=== PATIENT | male | born 1935 | race Caucasian/White ===

== ENCOUNTER 2021-03-10 16:24 | Outpatient (REF) | payer MEDICARE, SELFPAY ==
--- NOTE | ~2021-03-10 | XR_ITS ---
EXAMINATION: XR KNEE, LEFT CLINICAL INFORMATION: M25.562 - Pain in left knee COMPARISON: None TECHNIQUE: Four views of the left knee. IT issues at time of exam. Preliminary report provided on 03/10/2021 at 1721 hours. FINDINGS: There is a moderate to large suprapatellar effusion. There is no fracture or dislocation or destructive process. There are degenerative changes greatest medial knee joint compartment with mild joint narrowing and marginal osteophytes and a central osteophyte. No erosive changes or definite chondrocalcinosis. XR/XR knee LT 4V IMPRESSION: Degenerative changes medial knee joint compartment. Moderate to large effusion.
== END 2021-03-10 16:25 | disposition home or self-care (01) ==
LOC: HO.HMGCX 16:24
PROVIDERS: Visit Provider Hospitalist
DX: M25.562 Pain in left knee (principal)
CPT/HCPCS: 73564

== ENCOUNTER 2022-05-23 14:59 | Emergency (ER) | payer OTHER, SELFPAY ==
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
[2022-05-23 15:20] VITALS: BP 194/90; PULSE 86; RESP 18; TEMP 36.9; O2SAT 99
[2022-05-23 15:24] VITALS: BP 210/90; PULSE 91; O2SAT 99
[2022-05-23] MEDS: Acetaminophen 325 MG TABLET 975 MG PO (15:29)
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
[2022-05-23 16:22] LABS: MANUAL DIFF FLAG NO
[2022-05-23 16:23] LABS: Basophils Absolute Auto 0.1 X10*3/uL (0.0-0.2); Basophils Percent Auto 0.6 % (0-2); Eosinophils Absolute Auto 0.2 X10*3/uL (0.0-0.4); Eosinophils Percent Auto 1.8 % (0-4); Hematocrit 37.4 % (42.0-52.0); Hemoglobin 13.1 g/dl (14.0-18.0); Imm Gran Abs Auto 0.02 X10*3/uL (0.00-0.03); Imm Gran Pct Auto 0.2 % (0.0-0.4); Lymphocytes Absolute Auto 1.3 X10*3/uL (1.2-4.9); Lymphocytes Percent Auto 15.5 % (20-40); Mean Corpuscular Hemoglobin 29.8 pg (27.0-33.0); Mean Platelet Volume 9.2 fL (9.4-12.4); Monocytes Absolute Auto 0.8 X10*3/uL (0.1-1.2); Monocytes Percent Auto 9.7 % (2-11); Neutrophils Absolute Auto 5.9 x10*3/uL (2.0-8.3); Neutrophils Percent Auto 72.2 % (45-73); Platelet Count 223 X10*3/uL (160-400); Red Cell Distribution Width 13.4 % (11.0-16.0); White Blood Count 8.2 X10*3/uL (4.8-10.8)
[2022-05-23 16:42] LABS: Alanine Aminotransferase 9 U/L (0-40); Albumin Level 4.2 g/dL (3.5-5.0); Alkaline Phosphatase 81 U/L (39-117); Anion Gap 14 (12-20); Aspartate Amino Transferase 23 U/L (5-37); Bilirubin Direct < 0.2 mg/dL (0.0-0.5); Bilirubin Total 0.4 mg/dL (0.0-1.0); Blood Urea Nitrogen 14 mg/dL (9-16); Calcium 8.9 mg/dL (8.4-10.2); Carbon Dioxide 22 mmol/L (22-29); Chloride 102 mmol/L (96-108); Estimated Glomerular Filt Rate > 60; Glucose Random 110 mg/dL (60-115); Magnesium 1.8 mg/dL (1.6-2.6); Potassium 3.6 mmol/L (3.3-5.1); Sodium 134 mmol/L (135-145); Total Protein 7.8 g/dL (6.5-8.0)
[2022-05-23 20:28] LABS: Troponin-I High Sensitivity 53.1 ng/L (<3.5-35.0)
== END 2022-05-23 21:40 | disposition home or self-care (01) ==
PROVIDERS: Physician Assistant; Emergency Provider Emergency Medicine; PCP Internal Medicine
DX: R07.89 Other chest pain (principal); M54.50 Low back pain, unspecified; Z79.899 Other long term (current) drug therapy
CPT/HCPCS: 36415; 71046; 80048; 80076; 83735; 84484; 85025; 93005; 99283; 99284

== ENCOUNTER 2022-06-12 09:22 | Emergency (ER) | payer OTHER, SELFPAY ==
[2022-06-12 11:53] VITALS: BP 150/60; PULSE 60; RESP 16; TEMP 36.6; O2SAT 96; BMI 31.8
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
== END 2022-06-12 16:02 | disposition home or self-care (01) ==
PROVIDERS: Emergency Provider Internal Medicine; PCP Internal Medicine
DX: Z04.1 Encounter for examination and observation following transport accident (principal); M79.10 Myalgia, unspecified site
CPT/HCPCS: 99282; 99283

== ENCOUNTER 2022-10-10 19:05 | Emergency (ER) | payer MEDICARE, SELFPAY ==
--- NOTE | ~2022-10-10 | CT_ITS ---
EXAMINATION: CT HEAD WITHOUT CONTRAST CT CERVICAL SPINE WITHOUT CONTRAST CT MAXILLOFACIAL WITHOUT CONTRAST CLINICAL INFORMATION: Neck pain post fall. Face strike. Head strike. COMPARISON: None TECHNIQUE: CT of the head, cervical spine, and maxillofacial structures was performed without intravenous contrast. Multiplanar reformats were rendered and reviewed. This CT examination was performed using dose optimization techniques as appropriate, variously including the following: *Automated exposure control *Adjustment of mA and/or kV according to patient size (this includes techniques or standardized protocols for targeted exams where dose is matched to indication/reason for exam; i.e. extremities or head) *Use of iterative reconstruction technique DLP: 1635 mGy-cm. FINDINGS: CT HEAD: There is no intracranial hemorrhage, extra-axial collection, mass effect, or territorial infarction. There is mild to moderate diffuse brain parenchymal volume loss with prominence of ventricles and sulci. 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 The calvarium is intact without fracture. There is soft tissue contusion about the right frontal scalp. CT MAXILLOFACIAL: There is no preseptal soft tissue swelling. The orbital green and orbital rims are intact. There is no infiltration of the intraorbital fat or evidence of retrobulbar hematoma. The extraocular muscles and optic nerve sheath complexes are symmetric and normal in appearance. The globes are normal and symmetric. The zygomas and zygomaticomaxillary buttresses are intact. The nasal bones and wrno-anbgnm-ofexoom complex are intact. The maxillary alveolus and hard palate are intact. The mandible is intact with mandibular condyles normally positioned within the glenoid fossa. The osseous structures of the central skull base are intact. There is mild mucosal thickening within the paranasal sinuses. No fluid levels are seen mastoids are clear. CT CERVICAL SPINE: There is reversal of the normal cervical lordosis. No fracture is seen. There is advanced disc height loss at C5 C5 C6 and prominent endplate spurring with advanced degenerative endplate changes in addition to remodeling of the vertebral bodies with chronic height loss. There is multilevel facet arthropathy which is advanced at several levels. The craniovertebral junction appears intact. There is multilevel high-grade narrowing of the neural foramina related to uncovertebral hypertrophy and facet arthropathy. The upper lungs are clear. The cervical soft tissues are unremarkable. CT/CT cervical spine wo IV con IMPRESSION: CT HEAD: No acute intracranial abnormality. CT CERVICAL SPINE: No cervical spine fracture or traumatic malalignment. CT MAXILLOFACIAL: No facial bone fracture. Right frontal scalp contusion.
--- NOTE | ~2022-10-10 | CT_ITS ---
EXAMINATION: CT HEAD WITHOUT CONTRAST CT CERVICAL SPINE WITHOUT CONTRAST CT MAXILLOFACIAL WITHOUT CONTRAST CLINICAL INFORMATION: Neck pain post fall. Face strike. Head strike. COMPARISON: None TECHNIQUE: CT of the head, cervical spine, and maxillofacial structures was performed without intravenous contrast. Multiplanar reformats were rendered and reviewed. This CT examination was performed using dose optimization techniques as appropriate, variously including the following: *Automated exposure control *Adjustment of mA and/or kV according to patient size (this includes techniques or standardized protocols for targeted exams where dose is matched to indication/reason for exam; i.e. extremities or head) *Use of iterative reconstruction technique DLP: 1635 mGy-cm. FINDINGS: CT HEAD: There is no intracranial hemorrhage, extra-axial collection, mass effect, or territorial infarction. There is mild to moderate diffuse brain parenchymal volume loss with prominence of ventricles and sulci. 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 The calvarium is intact without fracture. There is soft tissue contusion about the right frontal scalp. CT MAXILLOFACIAL: There is no preseptal soft tissue swelling. The orbital green and orbital rims are intact. There is no infiltration of the intraorbital fat or evidence of retrobulbar hematoma. The extraocular muscles and optic nerve sheath complexes are symmetric and normal in appearance. The globes are normal and symmetric. The zygomas and zygomaticomaxillary buttresses are intact. The nasal bones and ntoq-liefcx-rvodquv complex are intact. The maxillary alveolus and hard palate are intact. The mandible is intact with mandibular condyles normally positioned within the glenoid fossa. The osseous structures of the central skull base are intact. There is mild mucosal thickening within the paranasal sinuses. No fluid levels are seen mastoids are clear. CT CERVICAL SPINE: There is reversal of the normal cervical lordosis. No fracture is seen. There is advanced disc height loss at C5 C5 C6 and prominent endplate spurring with advanced degenerative endplate changes in addition to remodeling of the vertebral bodies with chronic height loss. There is multilevel facet arthropathy which is advanced at several levels. The craniovertebral junction appears intact. There is multilevel high-grade narrowing of the neural foramina related to uncovertebral hypertrophy and facet arthropathy. The upper lungs are clear. The cervical soft tissues are unremarkable. CT/CT facial bones wo IV con IMPRESSION: CT HEAD: No acute intracranial abnormality. CT CERVICAL SPINE: No cervical spine fracture or traumatic malalignment. CT MAXILLOFACIAL: No facial bone fracture. Right frontal scalp contusion.
--- NOTE | ~2022-10-10 | CT_ITS ---
EXAMINATION: CT HEAD WITHOUT CONTRAST CT CERVICAL SPINE WITHOUT CONTRAST CT MAXILLOFACIAL WITHOUT CONTRAST CLINICAL INFORMATION: Neck pain post fall. Face strike. Head strike. COMPARISON: None TECHNIQUE: CT of the head, cervical spine, and maxillofacial structures was performed without intravenous contrast. Multiplanar reformats were rendered and reviewed. This CT examination was performed using dose optimization techniques as appropriate, variously including the following: *Automated exposure control *Adjustment of mA and/or kV according to patient size (this includes techniques or standardized protocols for targeted exams where dose is matched to indication/reason for exam; i.e. extremities or head) *Use of iterative reconstruction technique DLP: 1635 mGy-cm. FINDINGS: CT HEAD: There is no intracranial hemorrhage, extra-axial collection, mass effect, or territorial infarction. There is mild to moderate diffuse brain parenchymal volume loss with prominence of ventricles and sulci. 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 The calvarium is intact without fracture. There is soft tissue contusion about the right frontal scalp. CT MAXILLOFACIAL: There is no preseptal soft tissue swelling. The orbital green and orbital rims are intact. There is no infiltration of the intraorbital fat or evidence of retrobulbar hematoma. The extraocular muscles and optic nerve sheath complexes are symmetric and normal in appearance. The globes are normal and symmetric. The zygomas and zygomaticomaxillary buttresses are intact. The nasal bones and ieio-htanlj-twcdpph complex are intact. The maxillary alveolus and hard palate are intact. The mandible is intact with mandibular condyles normally positioned within the glenoid fossa. The osseous structures of the central skull base are intact. There is mild mucosal thickening within the paranasal sinuses. No fluid levels are seen mastoids are clear. CT CERVICAL SPINE: There is reversal of the normal cervical lordosis. No fracture is seen. There is advanced disc height loss at C5 C5 C6 and prominent endplate spurring with advanced degenerative endplate changes in addition to remodeling of the vertebral bodies with chronic height loss. There is multilevel facet arthropathy which is advanced at several levels. The craniovertebral junction appears intact. There is multilevel high-grade narrowing of the neural foramina related to uncovertebral hypertrophy and facet arthropathy. The upper lungs are clear. The cervical soft tissues are unremarkable. CT/CT head/brain wo IV con IMPRESSION: CT HEAD: No acute intracranial abnormality. CT CERVICAL SPINE: No cervical spine fracture or traumatic malalignment. CT MAXILLOFACIAL: No facial bone fracture. Right frontal scalp contusion.
--- NOTE | 2022-10-10 11:12 | ECG_ITS ---
Test Reason : fall Blood Pressure : / mmHG Vent. Rate : 069 BPM Atrial Rate : 069 BPM P-R Int : 164 ms QRS Dur : 088 ms QT Int : 404 ms P-R-T Axes : 036 -05 154 degrees QTc Int : 432 ms Normal sinus rhythm Possible Inferior infarct , age undetermined ST & T wave abnormality, consider lateral ischemia Abnormal ECG When compared with ECG of 23-MAY-2022 15:42, Premature atrial complexes are no longer Present Lateral ST changes more prominent Referred By: Radhika Centeno Electronically Signed By:NICOLLE LOCKHART
[2022-10-10 19:18] VITALS: BP 160/88; BP 201/69; PULSE 73; PULSE 76; RESP 24; TEMP 36.7; O2SAT 97; BMI 33.5
--- NOTE | 2022-10-10 19:47 | PC.NURSE ---
Pt A&O X4. C collar was applied to pt before he went to [facility]. Pt reported Ccollar is to tight and uncomfortable. Per provider sheet wrapped around pt neck using two finger space away from pt neck. Pt reports he is more comfortable.
[2022-10-10 20:10] LABS: MANUAL DIFF FLAG NO
[2022-10-10 20:11] LABS: Basophils Absolute Auto 0.1 X10*3/uL (0.0-0.2); Basophils Percent Auto 0.8 % (0-2); Eosinophils Absolute Auto 0.2 X10*3/uL (0.0-0.4); Eosinophils Percent Auto 2.5 % (0-4); Hematocrit 37.2 % (42.0-52.0); Hemoglobin 13.4 g/dl (14.0-18.0); Imm Gran Abs Auto 0.03 X10*3/uL (0.00-0.03); Imm Gran Pct Auto 0.3 % (0.0-0.4); Lymphocytes Absolute Auto 1.9 X10*3/uL (1.2-4.9); Lymphocytes Percent Auto 21.1 % (20-40); Mean Corpuscular Hemoglobin 31.2 pg (27.0-33.0); Mean Corpuscular Volume 86.5 fL (80.0-98.0); Mean Platelet Volume 9.1 fL (9.4-12.4); Monocytes Percent Auto 11.3 % (2-11); Neutrophils Absolute Auto 5.7 x10*3/uL (2.0-8.3); Platelet Count 199 X10*3/uL (160-400); Red Cell Distribution Width 12.8 % (11.0-16.0); White Blood Count 8.9 X10*3/uL (4.8-10.8)
[2022-10-10 20:23] LABS: COVID-19 Test Negative (Negative); IDNOW Serial# BCCEAD1C
--- OUTSIDE RECORDS SUMMARY | 2022-10-10 20:28 | XMS_ITS | Continuity of Care Document ---
:1935 Author Organization [facility] Address [address] [place] [address]- Care Team Providers Name Role Phone AwildaallieDomenica Webb DO Primary Care Physician [place] [facility] [place]20 [facility] [address] [place] [address]- [facility] Attending Physician: Derick Reeves MD Admitting Physician: Derick Reeves MD Referring Physician: Octavia PARRISH, Gabi Waite Allergies, Adverse Reactions, Alerts Substance Reaction Severity Status ibuprofen stomach burning sensation Active Motrin stomach burning sensation Active Advil bad stomach reaction Active TEGretol affected kidneys body swelling A ctive Medications Acetaminophen = 650 mg, By Mouth, Every 8 hours, PRN as needed for pain, 0 Refills, Maintenance, 08/07/14 12:34:12 Start Date: 08/07/14 Status: Orderedaspirin 81 mg oral tablet, chewable 81 mg, By Mouth, Daily, # 30 tablet, Refills 11, Tot. Refills 11, Maintenance, 02/20/19 12:04:01 EDT, Route to Pharmacy Electronically, [id number], [facility]/pharmacy #2339 Start Date: 02/20/19 Stop Date: 02/15/20 Status: Orderedatorvastatin 80 mg oral tablet = 80 mg, By Mouth, Daily at bedtime, # 30 tablet, 3 Refills, Maintenance, Tablet, Route to Pharmacy Electronically, [id number], [facility]/pharmacy #2339 Start Date: 02/20/19 Stop Date: 06/20/19 Status: Orderedferrous sulfate 325 mg oral enteric coated tablet 325 mg, 1, tablet, By Mouth, Daily, # 30 tablet, Refills 3, Tot. Refills 3, Maintenance, 02/20/19 12:30:13 EDT, Route to Pharmacy Electronically, [id number], [facility]/pharmacy #2339 Start Date: 02/20/19 Stop Date: 06/20/19 Status: OrderedFlonase 50 mcg/inh nasal spray 1 sprays, Nares, Both, 2 times a day, # 16 Gm, 0 Refills, Maintenance, 07/27/14 0:35:52 EST, [place] Start Date: 07/27/14 Status: Orderedisosorbide mononitrate 30 mg oral tablet, extended release 30 mg, By Mouth, Daily, # 30 tablet, Refills 3, Tot. Refills 3, Maintenance, 02/20/19 12:04:18 EDT, Route to Pharmacy Electronically, [id number], [facility]/pharmacy #2339 Start Date: 02/20/19 Stop Date: 06/20/19 Status: Orderedmetoprolol 50 mg oral tablet 50 mg, 1, tablet, By Mouth, 2 times a day, # 60 tablet, Refills 3, Tot. Refills 3, Maintenance, 02/20/19 12:05:09 EDT, Route to Pharmacy Electronically, [id number], [facility]/pharmacy #2339 Start Date: 02/20/19 Stop Date: 06/20/19 Status: Orderedondansetron 4 mg oral tablet, disintegrating = 4 mg, By Mouth, 3 times a day, PRN Nausea & Vomiting, # 9 tablet, 0 Refills, Maintenance, 02/20/19 12:03:16 EDT, Tablet Start Date: 02/20/19 Stop Date: 02/23/19 Status: Orderedpantoprazole 40 mg oral delayed release tablet 1 tablet = 40 mg, By Mouth, Daily, # 30 tablet, 0 Refills, Maintenance, 02/20/19 12:07:08 EDT, EC Tablet Start Date: 02/20/19 Status: OrderedPrednisoLONE Acetate 1% Ophth 1 drops, Eyes, Both, 4 times a day, 0 Refills, Maintenance, 07/29/14 11:25:08 EST, [place] Suspension Start Date: 07/29/14 Status: OrderedQUEtiapine 25 mg oral tablet 25 mg, 1, tablet, By Mouth, Daily, # 30 tablet, Refills 0, Maintenance, 02/10/19 18:31:21 EDT Start Date: 02/10/19 Status: OrderedSenna 8.6 mg oral tablet 17.2 mg, 2, tablet, By Mouth, Daily at bedtime, PRN, # 100 tablet, Refills 0, Maintenance, for constipation, 02/10/19 18:30:17 EDT, Tablet Start Date: 02/10/19 Status: Orderedsertraline 50 mg oral tablet 1 tablet = 50 mg, By Mouth, Daily, 0 Refills, Maintenance, 02/10/19 18:29:56 EDT Start Date: 02/10/19 Status: OrderedSimethicone = 125 mg, By Mouth, Daily, 0 Refills, Maintenance, 02/10/19 18:27:58 EDT Start Date: 02/10/19 Status: Orderedtamsulosin 0.4 mg oral capsule = 0.4 mg, By Mouth, 2 times a day, 0 Refills, Maintenance, 08/24/14 14:24:43, Capsule Start Date: 08/24/14 Status: Ordered Problem List Condition Effective Dates Status Health Status Informant Lumbar radicular pain(Confirmed) Active Social History Social History Type Response Smoking Status Former smoker entered on: 07/26/14 Sex
--- OUTSIDE RECORDS SUMMARY | 2022-10-10 20:28 | XMS_ITS | Continuity of Care Document ---
:1935 Author Organization [facility] Address [address] [place] [address]- Care Team Providers Name Role Phone Aleks Saxena MD Primary Care Physician Encounter [facility] [place] Date(s): 05/26/21 - 06/25/21 [facility] [address] [place] [address]- Attending Physician: Vianney Hayes Admitting Physician: Vianney Hayes Referring Physician: Vianney Hayes Allergies, Adverse Reactions, Alerts Substance Reaction Severity Status ibuprofen stomach burning sensation Active Motrin stomach burning sensation Active Advil bad stomach reaction Active TEGretol affected kidneys body swelling A ctive Medications albuterol 90 mcg/inh inhalation powder 1 puffs, Inhalation, Every 4 hours, PRN as needed, # 1 each, 0 Refills, Maintenance, 01/24/21 15:18:00 EDT, Powder, Partial fill upon patient request if the prescription is for a schedule II opioid drug. Start Date: 01/24/21 Status: Orderedaspirin 81 mg oral tablet, chewable 81 mg, By Mouth, Daily, # 30 tablet, Refills 11, Tot. Refills 11, Maintenance, 02/20/19 12:04:01 EDT, Route to Pharmacy Electronically, [id number], [facility]/pharmacy #2339 Start Date: 02/20/19 Stop Date: 02/15/20 Status: Orderedatorvastatin 80 mg oral tablet = 80 mg, By Mouth, Daily at bedtime, # 30 tablet, 3 Refills, Maintenance, Tablet, Route to Pharmacy Electronically, [id number], [facility]/pharmacy #2339 Start Date: 02/20/19 Stop Date: 06/20/19 Status: Orderedazelastine 0.05% ophthalmic solution 1 drops, Eyes, Both, 2 times a day, PRN for allergy symptoms, # 6 mL, 0 Refills, Maintenance, 01/24/21 15:17:00 EDT, Solution, Partial fill upon patient request if the prescription is for a schedule IIopioid drug. Start Date: 01/24/21 Status: Orderedcetirizine 10 mg oral tablet 1 tablet = 10 mg, By Mouth, Daily, # 30 tablet, 0 Refills, Maintenance, 01/24/21 14:46:00 EDT, Tablet, Partial fill upon patient request if the prescription is for a schedule II opioid drug. Start Date: 01/24/21 Status: Orderedclotrimazole 1% topical cream Topically, 2 times a day, 0 Refills, Maintenance, 05/26/21 9:36:00 EDT, Partial fill upon patient request if the prescription is for a schedule II opioid drug. Start Date: 05/26/21 Status: Ordereddiclofenac 3% topical gel Topically, 2 times a day, 0 Refills, Maintenance, 05/26/21 9:36:00 EDT, Partial fill upon patient request if the prescription is for a schedule II opioid drug. Start Date: 05/26/21 Status: Orderedfinasteride 5 mg oral tablet 1 tablet = 5 mg, By Mouth, Daily, # 90 tablet, 0 Refills, Maintenance, 01/24/21 14:50:00 EDT, Tablet, Partial fill upon patient request if the prescription is for a schedule II opioid drug. Start Date: 01/24/21 Status: OrderedFlonase 50 mcg/inh nasal spray 1 sprays, Nares, Both, 2 times a day, # 16 Gm, 0 Refills, Maintenance, 07/27/14 0:35:52 EST, [place] Start Date: 07/27/14 Status: Orderedfurosemide 20 mg oral tablet 20 mg, 1, tablet, By Mouth, Daily, # 30 tablet, Refills 0, Maintenance, 01/24/21 15:17:00 EDT, Partial fill upon patient request if the prescription is for a schedule II opioid drug. Start Date: 01/24/21 Status: OrderedHydroCORTisone 2.5% Topical 0 Refills, Maintenance Start Date: 05/26/21 Status: Orderedisosorbide mononitrate 30 mg oral tablet, extended release 30 mg, By Mouth, Daily, # 30 tablet, Refills 3, Tot. Refills 3, Maintenance, 02/20/19 12:04:18 EDT, Route to Pharmacy Electronically, [id number], [facility]/pharmacy #2339 Start Date: 02/20/19 Stop Date: 06/20/19 Status: Orderedmetoprolol 50 mg oral tablet 50 mg, 1, tablet, By Mouth, 2 times a day, # 60 tablet, Refills 3, Tot. Refills 3, Maintenance, 02/20/19 12:05:09 EDT, Route to Pharmacy Electronically, [id number], [facility]/pharmacy #2339 Start Date: 02/20/19 Stop Date: 06/20/19 Status: Orderedolopatadine 0.2% ophthalmic solution 1 drops, Eyes, Both, Daily, # 2.5 mL, 0 Refills, Maintenance, 01/24/21 15:19:00 EDT, Solution, Partial fill upon patient request if the prescription is for a schedule II opioid drug. Start Date: 01/24/21 Status: Orderedondansetron 4 mg oral tablet, disintegrating [...] EDT, EC Tablet Start Date: 02/20/19 Status: OrderedQUEtiapine 25 mg oral tablet 25 mg, 1, tablet, By Mouth, Daily at bedtime, PRN, # 30 tablet, Refills 0, Maintenance, Sleep, 01/24/21 14:46:00 EDT, Partial fill upon patient request if the prescription is for a schedule II opioid drug. Start Date: 01/24/21 Status: OrderedSenna 8.6 mg oral tablet 8.6 mg, 1, tablet, By Mouth, Daily at bedtime, PRN, # 100 tablet, Refills 0, Maintenance, for constipation, 02/10/19 18:30:17 EDT, Tablet Start Date: 02/10/19 Status: Orderedsertraline 50 mg oral tablet 1 tablet = 50 mg, By Mouth, Daily, 0 Refills, Maintenance, 02/10/19 18:29:56 EDT Start Date: 02/10/19 Status: Orderedsimethicone 125 mg oral capsule 1 capsule = 125 mg, By Mouth, 3 times a day after meals and bedtime, 0 Refills, Maintenance, 05/26/21 9:36:00 EDT, Partial fill upon patient request if the prescription is for a schedule II opioid drug. Start Date: 05/26/21 Status: Orderedtamsulosin 0.4 mg oral capsule = 0.4 mg, By Mouth, 2 times a day, 0 Refills, Maintenance, 08/24/14 14:24:43, Capsule Start Date: 08/24/14 Status: Ordered Problem List Condition Effective Dates Status Health Status Informant Lumbar radicular pain(Confirmed) Active Social History Social History Type Response Smoking Status Former smoker entered on: 07/26/14 Sex
--- OUTSIDE RECORDS SUMMARY | 2022-10-10 20:28 | XMS_ITS | Continuity of Care Document ---
:1935 Author Organization [facility] Address [address] [place] [address]- Care Team Providers Name Role Phone Domenica Laura DO Primary Care Physician Encounter [facility] [place] Date(s): 06/16/20 - 07/16/[address] [address]- [facility] Attending Physician: Vianney Hayes Admitting Physician: Vianney Hayes Referring Physician: AdmtrVianney Allergies, Adverse Reactions, Alerts Substance Reaction Severity [...] 02/20/19 12:04:01 EDT, Route to Pharmacy Electronically, [id number], [facility]/pharmacy #2339 Start Date: 02/20/19 Stop Date: 02/15/20 Status: Orderedatorvastatin 80 mg oral tablet = 80 mg, By Mouth, Daily at bedtime, # 30 tablet, 3 Refills, Maintenance, Tablet, Route to Pharmacy Electronically, [id number], [facility]/pharmacy #2339 Start Date: 02/20/19 Stop Date: 06/20/19 Status: Orderedferrous sulfate 325 mg oral enteric coated tablet 325 mg, 1, tablet, By Mouth, Daily, # 30 tablet, Refills 3, Tot. Refills 3, Maintenance, 02/20/19 12:30:13 EDT, Route to Pharmacy Electronically, [id number], [facility]/pharmacy #2339 Start Date: 02/20/19 Stop Date: 06/20/19 Status: OrderedFlonase 50 mcg/inh nasal spray 1 sprays, Nares, Both, 2 times a day, # 16 Gm, 0 Refills, Maintenance, 07/27/14 0:35:52 EST, [place] Start Date: 07/27/14 Status: Orderedisosorbide mononitrate 30 mg oral tablet, extended release 30 mg, By Mouth, Daily, # 30 tablet, Refills 3, Tot. Refills 3, Maintenance, 02/20/19 12:04:18 EDT, Route to Pharmacy Electronically, [id number], [facility]/pharmacy #2339 Start Date: 02/20/19 Stop Date: 06/20/19 Status: Orderedmetoprolol 50 mg oral tablet 50 mg, 1, tablet, By Mouth, 2 times a day, # 60 tablet, Refills 3, Tot. Refills 3, Maintenance, 02/20/19 12:05:09 EDT, Route to Pharmacy Electronically, [id number], [facility]/pharmacy #2339 Start Date: 02/20/19 Stop Date: 06/20/19 [...]
--- OUTSIDE RECORDS SUMMARY | 2022-10-10 20:28 | XMS_ITS | Continuity of Care Document ---
:1935 Author Organization [facility] Address [address] [place] [address]- Care Team Providers Name Role Phone Domenica Laura DO Primary Care Physician Encounter [facility] [place]): 03/25/20 - 04/24/20 [facility] [address] [place] [address]- [facility] Attending Physician: Vianney Hayes Admitting Physician: Vianney [...] 02/20/19 12:04:01 EDT, Route to Pharmacy Electronically, [id number], [facility]/pharmacy #2339 Start Date: 02/20/19 Stop Date: 02/15/20 Status: Orderedatorvastatin 80 mg oral tablet = 80 mg, By Mouth, Daily at bedtime, # 30 tablet, 3 Refills, Maintenance, Tablet, Route to Pharmacy Electronically, [id number], [facility]/pharmacy #2339 Start Date: 02/20/19 Stop Date: 06/20/19 Status: Orderedferrous sulfate 325 mg oral enteric coated tablet 325 mg, 1, tablet, By Mouth, Daily, # 30 tablet, Refills 3, Tot. Refills 3, Maintenance, 02/20/19 12:30:13 EDT, Route to Pharmacy Electronically, [id number], [facility]/pharmacy #2339 Start Date: 02/20/19 Stop Date: 06/20/19 Status: OrderedFlonase 50 mcg/inh nasal spray 1 sprays, Nares, Both, 2 times a day, # 16 Gm, 0 Refills, Maintenance, 07/27/14 0:35:52 EST, [place] Start Date: 07/27/14 Status: Orderedisosorbide mononitrate 30 mg oral tablet, extended release 30 mg, By Mouth, Daily, # 30 tablet, Refills 3, Tot. Refills 3, Maintenance, 02/20/19 12:04:18 EDT, Route to Pharmacy Electronically, [id number], [facility]/pharmacy #2339 Start Date: 02/20/19 Stop Date: 06/20/19 Status: Orderedmetoprolol 50 mg oral tablet 50 mg, 1, tablet, By Mouth, 2 times a day, # 60 tablet, Refills 3, Tot. Refills 3, Maintenance, 02/20/19 12:05:09 EDT, Route to Pharmacy Electronically, [id number], [facility]/pharmacy #2339 Start Date: 02/20/19 Stop Date: 06/20/19 [...]
--- OUTSIDE RECORDS SUMMARY | 2022-10-10 20:28 | XMS_ITS | Continuity of Care Document ---
:1935 Author Organization [facility] Address [address] [place] [phone]- Care Team Providers Name Role Phone Domenica Laura DO Primary Care Physician Encounter [facility] [place] Date(s[place] 11/11/19 - 12/17/[address] [address]- [facility] Attending Physician: Domenica Laura DO Admitting Physician: Domenica Laura DO Referring Physician: Domenica Laura DO Allergies, Adverse Reactions, Alerts Substance Reaction Severity [...] 02/20/19 12:04:01 EDT, Route to Pharmacy Electronically, [id number], [facility]/pharmacy #2339 Start Date: 02/20/19 Stop Date: 02/15/20 Status: Orderedatorvastatin 80 mg oral tablet = 80 mg, By Mouth, Daily at bedtime, # 30 tablet, 3 Refills, Maintenance, Tablet, Route to Pharmacy Electronically, [id number], [facility]/pharmacy #2339 Start Date: 02/20/19 Stop Date: 06/20/19 Status: Orderedferrous sulfate 325 mg oral enteric coated tablet 325 mg, 1, tablet, By Mouth, Daily, # 30 tablet, Refills 3, Tot. Refills 3, Maintenance, 02/20/19 12:30:13 EDT, Route to Pharmacy Electronically, [id number], [facility]/pharmacy #2339 Start Date: 02/20/19 Stop Date: 06/20/19 Status: OrderedFlonase 50 mcg/inh nasal spray 1 sprays, Nares, Both, 2 times a day, # 16 Gm, 0 Refills, Maintenance, 07/27/14 0:35:52 EST, [place] Start Date: 07/27/14 Status: Orderedisosorbide mononitrate 30 mg oral tablet, extended release 30 mg, By Mouth, Daily, # 30 tablet, Refills 3, Tot. Refills 3, Maintenance, 02/20/19 12:04:18 EDT, Route to Pharmacy Electronically, [id number], [facility]/pharmacy #2339 Start Date: 02/20/19 Stop Date: 06/20/19 Status: Orderedmetoprolol 50 mg oral tablet 50 mg, 1, tablet, By Mouth, 2 times a day, # 60 tablet, Refills 3, Tot. Refills 3, Maintenance, 02/20/19 12:05:09 EDT, Route to Pharmacy Electronically, [id number], [facility]/pharmacy #2339 Start Date: 02/20/19 Stop Date: 06/20/19 [...]
--- OUTSIDE RECORDS SUMMARY | 2022-10-10 20:28 | XMS_ITS | Continuity of Care Document ---
:1935 Author Organization [facility] Address [address] [place] [address]- Care Team Providers Name Role Phone Joseph Fraser MD Primary Care Physician [place] [facility] [place] 08/28/19 - 09/07/19 [facility] [address] [place] [address]- [facility] Attending Physician: Vianney Hayes Admitting Physician: Vianney [...] 02/20/19 12:04:01 EDT, Route to Pharmacy Electronically, [id number], [facility]/pharmacy #2339 Start Date: 02/20/19 Stop Date: 02/15/20 Status: Orderedatorvastatin 80 mg oral tablet = 80 mg, By Mouth, Daily at bedtime, # 30 tablet, 3 Refills, Maintenance, Tablet, Route to Pharmacy Electronically, [id number], [facility]/pharmacy #2339 Start Date: 02/20/19 Stop Date: 06/20/19 Status: Orderedferrous sulfate 325 mg oral enteric coated tablet 325 mg, 1, tablet, By Mouth, Daily, # 30 tablet, Refills 3, Tot. Refills 3, Maintenance, 02/20/19 12:30:13 EDT, Route to Pharmacy Electronically, [id number], [facility]/pharmacy #2339 Start Date: 02/20/19 Stop Date: 06/20/19 Status: OrderedFlonase 50 mcg/inh nasal spray 1 sprays, Nares, Both, 2 times a day, # 16 Gm, 0 Refills, Maintenance, 07/27/14 0:35:52 EST, [place] Start Date: 07/27/14 Status: Orderedisosorbide mononitrate 30 mg oral tablet, extended release 30 mg, By Mouth, Daily, # 30 tablet, Refills 3, Tot. Refills 3, Maintenance, 02/20/19 12:04:18 EDT, Route to Pharmacy Electronically, [id number], [facility]/pharmacy #2339 Start Date: 02/20/19 Stop Date: 06/20/19 Status: Orderedmetoprolol 50 mg oral tablet 50 mg, 1, tablet, By Mouth, 2 times a day, # 60 tablet, Refills 3, Tot. Refills 3, Maintenance, 02/20/19 12:05:09 EDT, Route to Pharmacy Electronically, [id number], [facility]/pharmacy #2339 Start Date: 02/20/19 Stop Date: [...]
--- OUTSIDE RECORDS SUMMARY | 2022-10-10 20:28 | XMS_ITS | Continuity of Care Document ---
:1935 Author Organization [facility] Address [address] [place] [address]- Care Team Providers Name Role Phone Domenica Laura DO Primary Care Physician Encounter [facility] [place] Date(s): 05/11/20 - 06/16/[address] [address]- [facility] Attending Physician: Domenica Laura DO Admitting Physician: Domenica Laura DO Allergies, Adverse Reactions, [...] 02/20/19 12:04:01 EDT, Route to Pharmacy Electronically, [id number], [facility]/pharmacy #2339 Start Date: 02/20/19 Stop Date: 02/15/20 Status: Orderedatorvastatin 80 mg oral tablet = 80 mg, By Mouth, Daily at bedtime, # 30 tablet, 3 Refills, Maintenance, Tablet, Route to Pharmacy Electronically, [id number], [facility]/pharmacy #2339 Start Date: 02/20/19 Stop Date: 06/20/19 Status: Orderedferrous sulfate 325 mg oral enteric coated tablet 325 mg, 1, tablet, By Mouth, Daily, # 30 tablet, Refills 3, Tot. Refills 3, Maintenance, 02/20/19 12:30:13 EDT, Route to Pharmacy Electronically, [id number], [facility]/pharmacy #2339 Start Date: 02/20/19 Stop Date: 06/20/19 Status: OrderedFlonase 50 mcg/inh nasal spray 1 sprays, Nares, Both, 2 times a day, # 16 Gm, 0 Refills, Maintenance, 07/27/14 0:35:52 EST, [place] Start Date: 07/27/14 Status: Orderedisosorbide mononitrate 30 mg oral tablet, extended release 30 mg, By Mouth, Daily, # 30 tablet, Refills 3, Tot. Refills 3, Maintenance, 02/20/19 12:04:18 EDT, Route to Pharmacy Electronically, [id number], [facility]/pharmacy #2339 Start Date: 02/20/19 Stop Date: 06/20/19 Status: Orderedmetoprolol 50 mg oral tablet 50 mg, 1, tablet, By Mouth, 2 times a day, # 60 tablet, Refills 3, Tot. Refills 3, Maintenance, 02/20/19 12:05:09 EDT, Route to Pharmacy Electronically, [id number], [facility]/pharmacy #2339 Start Date: 02/20/19 Stop Date: 06/20/19 [...]
--- OUTSIDE RECORDS SUMMARY | 2022-10-10 20:28 | XMS_ITS | Continuity of Care Document ---
:1935 Author Organization [facility] Address [address] [place] [address]- Care Team Providers Name Role Phone Aleks Saxena MD Primary Care Physician Encounter [facility] [place] Date(s): 06/27/21 - 07/27/[address] [address] Attending Physician: Vianney Hayes Admitting Physician: Vianney [...] 02/20/19 12:04:01 EDT, Route to Pharmacy Electronically, [id number], [facility]/pharmacy #2339 Start Date: 02/20/19 Stop Date: 02/15/20 Status: Orderedatorvastatin 80 mg oral tablet = 80 mg, By Mouth, Daily at bedtime, # 30 tablet, 3 Refills, Maintenance, Tablet, Route to Pharmacy Electronically, [id number], [facility]/pharmacy #2339 Start Date: 02/20/19 Stop Date: [...] Gm, 0 Refills, Maintenance, 07/27/14 0:35:52 EST, [place] Start Date: 07/27/14 Status: Orderedfurosemide 20 mg [...] 02/20/19 12:04:18 EDT, Route to Pharmacy Electronically, [id number], [facility]/pharmacy #2339 Start Date: 02/20/19 Stop Date: 06/20/19 Status: Orderedmetoprolol 50 mg oral tablet 50 mg, 1, tablet, By Mouth, 2 times a day, # 60 tablet, Refills 3, Tot. Refills 3, Maintenance, 02/20/19 12:05:09 EDT, Route to Pharmacy Electronically, [id number], [facility]/pharmacy #2339 Start Date: 02/20/19 Stop Date: [...]
--- OUTSIDE RECORDS SUMMARY | 2022-10-10 20:28 | XMS_ITS | Continuity of Care Document ---
:1935 Author Organization [facility] Address [address] [place] [address]- Care Team Providers Name Role Phone Aleks Saxena MD Primary Care Physician Encounter [facility] Date(s): 01/27/21 - 02/26/[address] [address]- Attending Physician: Not on Staff, Attending MD Admitting Physician: Not on Staff, Admitting MD Referring Physician: Not on Staff, Referring MD Allergies, Adverse Reactions, Alerts Substance Reaction Severity [...] 02/20/19 12:04:01 EDT, Route to Pharmacy Electronically, [id number], [id number] Start Date: 02/20/19 Stop Date: 02/15/20 Status: Orderedatorvastatin 80 mg oral tablet = 80 mg, By Mouth, Daily at bedtime, # 30 tablet, 3 Refills, Maintenance, Tablet, Route to Pharmacy Electronically, [id number], [id number] Start Date: 02/20/19 Stop Date: [...] II opioid drug. Start Date: 01/24/21 Status: Orderedfinasteride 5 mg oral tablet 1 [...] Gm, 0 Refills, Maintenance, 07/27/14 0:35:52 EST, [place] Start Date: 07/27/14 Status: Orderedfurosemide 20 mg oral tablet 20 mg, 1, tablet, By Mouth, Daily, # 30 tablet, Refills 0, Maintenance, 01/24/21 15:17:00 EDT, Partial fill upon patient request if the prescription is for a schedule II opioid drug. Start Date: 01/24/21 Status: Orderedisosorbide mononitrate 30 mg oral tablet, extended release 30 mg, By Mouth, Daily, # 30 tablet, Refills 3, Tot. Refills 3, Maintenance, 02/20/19 12:04:18 EDT, Route to Pharmacy Electronically, [id number], [id number] Start Date: 02/20/19 Stop Date: 06/20/19 Status: Orderedmetoprolol 50 mg oral tablet 50 mg, 1, tablet, By Mouth, 2 times a day, # 60 tablet, Refills 3, Tot. Refills 3, Maintenance, 02/20/19 12:05:09 EDT, Route to Pharmacy Electronically, [id number], [facility][id number] Start Date: 02/20/19 Stop Date: [...] 02/10/19 18:29:56 EDT Start Date: 02/10/19 Status: Orderedtamsulosin 0.4 [...]
--- OUTSIDE RECORDS SUMMARY | 2022-10-10 20:28 | XMS_ITS | Continuity of Care Document ---
:1935 Author Organization [facility] Address [address] [place] [id number]- Care Team Providers Name Role Phone Domenica Laura DO Primary Care Physician [place] [facility] [place]/24[place] - 04/29/[address] [address]- [facility] Attending Physician: Domenica Laura DO [...] 02/20/19 12:04:01 EDT, Route to Pharmacy Electronically, [id number], [facility] #[id number] Start Date: 02/20/19 Stop Date: 02/15/20 Status: Orderedatorvastatin 80 mg oral tablet = 80 mg, By Mouth, Daily at bedtime, # 30 tablet, 3 Refills, Maintenance, Tablet, Route to Pharmacy Electronically, [id number], [facility]/pharmacy #[id number] Start Date: 02/20/19 Stop Date: 06/20/19 Status: Orderedferrous sulfate 325 mg oral enteric coated tablet 325 mg, 1, tablet, By Mouth, Daily, # 30 tablet, Refills 3, Tot. Refills 3, Maintenance, 02/20/19 12:30:13 EDT, Route to Pharmacy Electronically, [id number], [facility]/pharmacy #[id number] Start Date: 02/20/19 Stop Date: 06/20/19 Status: OrderedFlonase 50 mcg/inh nasal spray 1 sprays, Nares, Both, 2 times a day, # 16 Gm, 0 Refills, Maintenance, 07/27/14 0:35:52 EST, [place] Start Date: 07/27/14 Status: Orderedisosorbide mononitrate 30 mg oral tablet, extended release 30 mg, By Mouth, Daily, # 30 tablet, Refills 3, Tot. Refills 3, Maintenance, 02/20/19 12:04:18 EDT, Route to Pharmacy Electronically, [id number], [facility]/pharmacy #[id number] Start Date: 02/20/19 Stop Date: 06/20/19 Status: Orderedmetoprolol 50 mg oral tablet 50 mg, 1, tablet, By Mouth, 2 times a day, # 60 tablet, Refills 3, Tot. Refills 3, Maintenance, 02/20/19 12:05:09 EDT, Route to Pharmacy Electronically, [id number], [facility]/pharmacy #[id number] Start Date: 02/20/19 Stop [...]
--- OUTSIDE RECORDS SUMMARY | 2022-10-10 20:28 | XMS_ITS | Continuity of Care Document ---
:1935 Author Organization [facility] Address [address] [place] [address]- Care Team Providers Name Role Phone AwildaallieDomenica Webb DO Primary Care Physician Encounter [facility] Date(s): 01/24/21 - 01/27/[address] [address] Discharge Disposition: A-D/C Home Attending Physician: Sonya Robledo MD Admitting Physician: Henna Graham MD Referring Physician: Not on Staff, Referring MD Allergies, Adverse Reactions, Alerts Substance Reaction Severity Status ibuprofen stomach burning sensation Active Motrin stomach burning sensation Active Advil bad stomach reaction Active TEGretol affected kidneys body swelling A ctive Medications acetaminophen 325 mg oral tablet 975 mg, Tablet, By Mouth, 01/27/21 9:00:00 EDT Start Date: 01/27/21 Stop Date: 01/27/21 Status: Completedalbuterol 90 mcg/inh inhalation powder 1 puffs, Inhalation, [...] 02/20/19 12:04:01 EDT, Route to Pharmacy Electronically, [id number], [facility]/pharmacy #[id number] Start Date: 02/20/19 Stop Date: 02/15/20 Status: Orderedatorvastatin 80 mg oral tablet = 80 mg, By Mouth, Daily at bedtime, # 30 tablet, 3 Refills, Maintenance, Tablet, Route to Pharmacy Electronically, [id number], [facility]/pharmacy #[id number] Start Date: 02/20/19 Stop Date: 06/20/19 Status: [...] Gm, 0 Refills, Maintenance, 07/27/14 0:35:52 EST, [place] Start Date: 07/27/14 Status: Orderedfurosemide 20 mg oral tablet 20 mg, 1, tablet, By Mouth, Daily, # 30 tablet, Refills 0, Maintenance, 01/24/21 15:17:00 EDT, Partial fill upon patient request if the prescription is for a schedule II opioid drug. Start Date: 01/24/21 Status: OrderedguaiFENesin 100 mg/5 mL oral liquid 10 mL = 200 mg, By Mouth, Every 4 hours, PRN Cough, # 120 mL, 0 Refills, Acute 02/20/21 23:00:00 EDT, 01/27/21 12:12:00 EDT, Syrup, [facility], Partial fill upon patient request if the prescription is for a schedule II opioid drug., 154,... Start Date: 01/27/21 Stop Date: 02/20/21 Status: Orderedisosorbide mononitrate 30 mg oral tablet, extended release 30 mg, By Mouth, Daily, # 30 tablet, Refills 3, Tot. Refills 3, Maintenance, 02/20/19 12:04:18 EDT, Route to Pharmacy Electronically, [id number], [facility]/pharmacy #[id number] Start Date: 02/20/19 Stop Date: 06/20/19 Status: Orderedmetoprolol 50 mg oral tablet 50 mg, Tablet, By Mouth, 01/27/21 9:00:00 EDT Start Date: 01/27/21 Stop Date: 01/27/21 Status: Completedmetoprolol 50 mg oral tablet 50 mg, 1, tablet, By Mouth, 2 times a day, # 60 tablet, Refills 3, Tot. Refills 3, Maintenance, 02/20/19 12:05:09 EDT, Route to Pharmacy Electronically, [id number], [facility]/pharmacy #[id number] Start Date: 02/20/19 Stop Date: 06/20/19 [...] Health Status Informant Lumbar radicular pain(Confirmed) Active Results Radiology Reports Exam Date Time Procedure Performing Provider Status 01/26/21 1:31 PM Chest 2 Views Frontal and Lat Keely Cristobal (Verified) Notes:(Chest 2 Views Frontal and Lat) Reason For Exam: CoughRESULT: Chest 2 Views Frontal and Lat Chest 2 Views Frontal and Lat REASON: Cough; Clinical Question(s): Pneumonia COMPARISON: 02/15/2019. FINDINGS: LINES AND TUBES: None. LUNGS AND PLEURA: Low lung volumes with mild basilar atelectasis. Lungs are otherwise clear with no consolidation. No pleural effusion. No pneumothorax. HEART, MEDIASTINUM AND CARLOS: Heart is normal in size. Normal upper mediastinal and hilar contour. BONES AND SOFT TISSUES: No acute abnormality. IMPRESSION: No acute abnormality. I have personally reviewed the images and I agree with this report. WSN: [id number] Ordering Physician: Ericka Garcia Dictated By: Doris Stoner DO Dictated Date/Time: 01/26/21 3:15 pm Reviewed By: Carlos Leon MD Signed By: Carlos Leon MD Signed Date/Time: 01/26/21 3:20 pm Transcribed By: ROB Transcribed Date/Time: 01/26/21 3:06 pm Exam Date Time Procedure Performing Provider Status 01/25/21 5:06 PM C-Arm < 1 Hour Jessica Thomason; Zaria (Verifie d) Notes:(C-Arm < 1 Hour) Reason For Exam: hematuria, cysto with catheter placement (FT: 49 sec TT: 30 min)RESULT: C-Arm < 1 Hour Urethrocystography Retrograde, C-Arm < 1 Hour INDICATION: 85 years years old Male with hematuria, bladder filling defects on recent CT urogram. COMPARISONS: CT urogram January 24, 2021, renal ultrasound January 20, 2021. TECHNIQUE: Fluoroscopy support was provided in the operating room for the referring physician using the C-arm. There was no radiologist in attendance. This report is provided for documentation purposes. In addition, a total of three spot views of the urinary bladder in the AP projections are obtained in the OR with the C-arm. Fluoroscopy time: 49 seconds. Technologist time: 30 minutes. FINDINGS: Large filling defect noted within the urinary bladder as well as multiple smaller filling defects throughout the bladder lumen. A catheter and wire are noted within the urinary bladder. No evaluation of the ureters. IMPRESSION: 1. C-arm study performed in the OR. 2. Multiple filling defects within the urinary bladder in view of findings on yesterday's CT urogramprobably representing blood clots. 3. Wire and catheter in the urinary bladder. Thank you for allowing me to participate in the care of this patient. WSN: [id number] Ordering Physician: Deonte Hassan MD Dictated By: Gino Barber MD Dictated Date/Time: 01/25/21 5:40 pm Reviewed By: Gino Barber MD Signed By: Gino Barber MD Signed Date/Time: 01/25/21 5:40 pm Transcribed By: ROB Transcribed Date/Time: 01/25/21 5:24 pm Exam Date Time Procedure Performing Provider Status 01/25/21 5:06 PM Urethrocystography Retrograde Jessica Thomason; Zaria (Verified) Notes:(Urethrocystography Retrograde) Reason For Exam: hematuria, cysto with catheter placement (FT: 49 sec TT: 30 min)RESULT: Urethrocystography Retrograde Urethrocystography Retrograde, C-Arm < 1 Hour INDICATION: 85 years years old Male with hematuria, bladder filling defects on recent CT urogram. COMPARISONS: CT urogram January 24, 2021, renal ultrasound January 20, 2021. TECHNIQUE: Fluoroscopy support was provided in the operating room for the referring physician using the C-arm. There was no radiologist in attendance. This report is provided for documentation purposes. In addition, a total of three spot views of the urinary bladder in the AP projections are obtained in the OR with the C-arm. Fluoroscopy time: 49 seconds. Technologist time: 30 minutes. FINDINGS: Large filling defect noted within the urinary bladder as well as multiple smaller filling defects throughout the bladder lumen. A catheter and wire are noted within the urinary bladder. No evaluation of the ureters. IMPRESSION: 1. C-arm study performed in the OR. 2. Multiple filling defects within the urinary bladder in view of findings on yesterday's CT urogramprobably representing blood clots. 3. Wire and catheter in the urinary bladder. Thank you for allowing me to participate in the care of this patient. WSN: [id number] Ordering Physician: Deonte Hassan MD Dictated By: Gino Barber MD Dictated Date/Time: 01/25/21 5:40 pm Reviewed By: Gino Barber MD Signed By: Gino Barber MD Signed Date/Time: 01/25/21 5:40 pm Transcribed By: ROB Transcribed Date/Time: 01/25/21 5:24 pm Vital Signs Most recent to oldest 1 2 3 [Reference Range]: Weight 77.75 kg 77.75 kg 76.5 kg (01/25/21 2:51 PM) (01/25/21 8:38 AM) (01/24/21 7:0 0 PM) Oxygen Saturation [94-100 %] 96 % 96 % 97 % (01/27/21 11:35 AM) (01/27/21 7:35 AM) (01/26/21 11 :26 PM) Pulse Rate [55-90 bpm] 65 bpm 78 bpm 78 bpm (01/27/21 11:35 AM) (01/27/21 9:05 AM) (01/27/21 7: 35 AM) Blood Pressure [90-138/55-84 139/55 mm Hg 134/114 mm Hg 134 /114 mm Hg mm Hg] *H* (01/27/21 9:05 AM) (01/27/21 7:35 AM) (01/27/21 11:35 AM) Respiratory Rate [16-30 18 br/min 18 br/min 19 br/mi n br/min] (01/27/21 1:41 PM) (01/27/21 11:35 AM) (01/27/21 7: 35 AM) Temperature [96.8-100.4 97.6 DegF 97.6 DegF 97.6 Deg F DegF] (01/27/21 11:35 AM) (01/27/21 7:35 AM) (01/26/21 11 :26 PM) Liters per Minute 7 L/min (01/25/21 5:08 PM) Mode of Delivery (Oxygen) Room air Room air Room a ir (01/27/21 11:35 AM) (01/27/21 7:35 AM) (01/26/21 11 :26 PM) Blood pressure sites Arm, right Arm, right Arm, left (01/27/21 11:35 AM) (01/27/21 7:35 AM) (01/26/21 11 :26 PM) Temperature Route Oral Oral Oral (01/27/21 11:35 AM) (01/27/21 7:35 AM) (01/26/21 11 :26 PM) Weight Obtained Via Standing scale Bed scale (01/25/21 8:38 AM) (01/24/21 7:00 PM) Social History Social History Type Response Smoking Status Former smoker entered on: 07/26/14 Sex
[2022-10-10 20:39] LABS: Alanine Aminotransferase 6 U/L (0-40); Alkaline Phosphatase 88 U/L (39-117); Anion Gap 15 (12-20); Aspartate Amino Transferase 20 U/L (5-37); Bilirubin Total 0.4 mg/dL (0.0-1.0); Blood Urea Nitrogen 14 mg/dL (9-16); Calcium 8.6 mg/dL (8.4-10.2); Carbon Dioxide 21 mmol/L (22-29); Chloride 101 mmol/L (96-108); Creatinine Clr Calc Pharmacy 42.9; Estimated Glomerular Filt Rate > 60; Glucose Random 104 mg/dL (60-115); Magnesium 1.8 mg/dL (1.6-2.6); Potassium 4.6 mmol/L (3.3-5.1); Sodium 132 mmol/L (135-145); Total Protein 7.4 g/dL (6.5-8.0)
[2022-10-10 20:53] LABS: Appearance Urine Cloudy; Color Urine Yellow; Glucose Urine UA Negative (Negative); Leukocyte Esterase Urine Large (3+) (Negative); Nitrite Urine Negative (Negative); Specific Gravity - Urine <= 1.005 (1.005-1.025); UMIC TRIGGER UACC YES; Urine Blood Trace (Negative); Urine Ketones Negative (Negative); Urine Protein Negative (Neg-Trace)
[2022-10-10 20:58] LABS: Bacteria Urine 2+ (None Seen); Hyaline Casts Urine 0-2 /LPF (0-2); RBC Urine 0-2 /HPF (0-2); Squamous Epithelial Cell Urine 0-2 /HPF (0-2); UACC Culture Trigger YES; WBC Urine >50 /HPF (0-5)
[2022-10-10 23:29] VITALS: BP 192/78; PULSE 85; RESP 20; TEMP 36.9; O2SAT 93
--- NOTE | 2022-10-10 23:32 | ED.FALL ---
HPI - Fall General Chief Complaint: Fall Stated Complaint: eyebrow lac after fall Time Seen by Provider: 10/10/22 22:01 Source: patient Mode of arrival: EMS Limitations: no limitations History of Present Illness HPI Narrative: Patient comes to the emergency room after sustaining a mechanical fall. Patient states that he was getting ready to go to nondenominational. Patient tripped over a rug/towel that was on the floor and landed on the right side of his head. Patient did not lose consciousness. Patient is not on blood thinners. Patient complaining of a laceration to the right eyebrow. Denies neck pain or headache. Related Data Home Medications Medication Instructions Recorded Confirmed acetaminophen 325 mg tablet 0 mg PO 03/10/21 03/10/21 albuterol sulfate 90 mcg/actuation 2 puff inhalation Q4H PRN wheezing 03/10/21 03/10/21 aerosol inhaler aspirin 81 mg tablet,delayed 81 mg PO DAILY 03/10/21 03/10/21 release cephalexin 500 mg capsule 500 mg PO QID 03/10/21 03/10/21 clotrimazole-betamethasone 1 appl topical 03/10/21 03/10/21 %-0.05 % topical cream finasteride 5 mg tablet 5 mg PO DAILY 03/10/21 03/10/21 fluticasone propionate 50 1 spray intranasal DAILY PRN 03/10/21 03/10/21 mcg/actuation nasal allergies spray,suspension furosemide 20 mg tablet 20 mg PO DAILY 03/10/21 03/10/21 hydrocortisone 2.5 % topical cream appl topical BID PRN 03/10/21 03/10/21 isosorbide mononitrate 30 mg 30 mg PO DAILY 03/10/21 03/10/21 tablet,extended release 24 hr pantoprazole 40 mg tablet,delayed 40 mg PO BID 03/10/21 03/10/21 release quetiapine 25 mg tablet 25 mg PO BEDTIME 03/10/21 03/10/21 sertraline 50 mg tablet 50 mg PO DAILY 03/10/21 03/10/21 simethicone 125 mg capsule 0 mg PO 03/10/21 03/10/21 tamsulosin 0.4 mg capsule 0.4 mg PO BID 03/10/21 03/10/21 Previous Rx's Medication Instructions Recorded dexamethasone 4 mg tablet 4 mg PO .COMPLEX #18 tabs 03/10/21 cyclobenzaprine 10 mg tablet 10 mg PO Q8H #14 tabs 06/12/22 cefuroxime axetil 500 mg tablet 500 mg PO BID #13 tabs 10/10/22 Allergies Allergy/AdvReac Type Severity Reaction Status Date / Time ibuprofen [From Advil] Allergy Unknown Unknown Verified 03/10/21 16:13 carbamazepine [From Tegretol] Allergy Unknown Verified 06/12/22 11:51 memantine AdvReac Unknown Verified 06/12/22 11:52 Review of Systems Review of Systems: Constitutional : No Weight loss, No Fever, No Chills, No Night Sweats, No Fatigue, No Malaise ENT/Mouth : No Hearing loss, No Ear Pain, No Nasal Congestion, No Sinus Pain, No Hoarseness, No sore throat, No Rhinorrhea, No Swallowing Difficulty Eyes: No Eye Pain, No Swelling, No Redness, No Foreign Body, No Discharge, No Vision Changes Cardiovascular : No Chest Pain, No SOB, No Dyspnea on Exertion, No Orthopnea, No Edema, No Palpitations Respiratory : No Cough, No Sputum, No Wheezing, No Smoke Exposure, No Dyspnea Gastrointestinal : No Nausea, No Vomiting, No Diarrhea, No Constipation, No abdominal Pain, No Hematochezia, No Melena Genitourinary : no irregular bleeding, No Dysuria, No Urinary Frequency, No Hematuria, No Urinary Incontinence, No Urgency, No Flank Pain, No Urinary Flow Changes, No Hesitancy Musculoskeletal : No joint pain, No Myalgias, No Joint Swelling Skin : Laceration above the right eyebrow Neuro : No Weakness, No Numbness, No Paresthesias, No Loss of Consciousness, No Dizziness, No Headache Psych : No Anxiety/Panic, No Depression, No SI/HI/AH/VH, No Social Issues, Heme/Lymph: No Bruising, No Bleeding,No Lymphadenopathy Endocrine : No Polyuria, No Polydipsia, No Temperature Intolerance [facility] Past Medical History Medical History (Updated 10/10/22 @ 23:43 by Radhika Centeno MD) Asthma exacerbation BPH (benign prostatic hyperplasia) GERD (gastroesophageal reflux disease) Lumbar radiculopathy Social History Social History Advance Directives: No Advance Directives Information Provided: No Physical Exam Vital Signs: Vital Signs: Last Vital Signs Temp 98.4 F 10/10/22 23:29 Pulse 85 10/10/22 23:29 Resp 20 10/10/22 23:29 BP 192/78 H 10/10/22 23:29 Pulse Ox 93 10/10/22 23:29 O2 Del Method 10/10/22 23:29 BMI result Body Mass Index 33.5 Const: Other: Appearance: Alert. Oriented X3. No acute distress. Eyes: Pupils equal, round and reactive to light. ENT: Pharynx normal. Neck: Normal inspection. Neck supple. No lymph nodes noted. No crepitus, no palpable step-offs, normal flexion and extension, normal rotation and range of motion without any pain CVS: Normal heart rate and rhythm. Pulses normal. Normal S1 and S2 Respiratory: No respiratory distress. Breath sounds normal. No Wheezing. No rales Abdomen: Soft and nontender. No rigidity. No distention. Skin: Skin warm and dry. 6 cm laceration above the right eyebrow Extremities: No lower extremity edema. No Lacerations. No Rash Neuro: Oriented X 3. No motor deficit. No sensory deficit. Moving all extremities. No slurred speech. CN 2 through 12 grossly intact Psych: calm, cooperative, normal affect Course Course Course Narrative: -troponin is pending. Patient declined, prefers to be going home. Patient has no chest pain shortness of breath or dizziness. Medications Administered Discontinued Medications Generic Name Dose Route Start Last Admin Trade Name Andreaq PRN Reason Stop Dose Admin Lidocaine/Epinephrine 20 ml 10/10/22 22:14 10/10/22 23:16 Lidocaine Hcl 2%/Epi 1:100,000 20 Ml Vial INFILTRATI 10/10/22 22:15 Not Given ONCE ONE Procedures Laceration Laceration 1: Site: face Side (If applicable): right Size (cm): 6 Description: linear and irregular Depth: simple, single layer Local Anesthetic: lidocaine 1% Amount of anesthesia used (mL): 10 Skin layer closed with: nylon Size (cm): 5-0 Number of sutures: 10 Technique: simple, interrupted Medical Decision Making Medical Decision Making [facility] Narrative: -10 stitches were applied to the skin above the right eyebrow, tolerated well the procedure. Lab Data [facility] Lab Attestation statement: I reviewed the patient's lab results. 10/10/22 20:03 10/10/22 20:03 Labs: Lab Results 10/10/22 10/10/22 10/10/22 Range/Units 19:54 20:03 20:03 WBC 8.9 (4.8-10.8) X10*3/uL RBC 4.30 L (4.60-5.80) X10*6/uL Hgb 13.4 L (14.0-18.0) g/dl Hct 37.2 L (42.0-52.0) % MCV 86.5 (80.0-98.0) fL MCH 31.2 (27.0-33.0) pg MCHC 36.0 (31.0-36.0) g/dl RDW 12.8 (11.0-16.0) % Plt Count 199 (160-400) X10*3/uL MPV 9.1 L (9.4-12.4) fL Immature Gran % (Auto) 0.3 (0.0-0.4) % Neut % (Auto) 64.0 (45-73) % Lymph % (Auto) 21.1 (20-40) % [place] % (Auto) 11.3 H (2-11) % Eos % (Auto) 2.5 (0-4) % Baso % (Auto) 0.8 (0-2) % Lymph # (Auto) 1.9 (1.2-4.9) X10*3/uL [place] # (Auto) 1.0 (0.1-1.2) X10*3/uL Eos # (Auto) 0.2 (0.0-0.4) X10*3/uL Baso # (Auto) 0.1 (0.0-0.2) X10*3/uL Abs Immat Gran (auto) 0.03 (0.00-0.03) X10*3/uL Absolute Neuts (auto) 5.7 (2.0-8.3) x10*3/uL Absolute Nucleated RBC 0.000 (0.0-0.012) X10*3/uL Nucleated RBC % (auto) 0.0 (0.0-0.2) /100WBC PT 11.0 (10.0-13.1) SEC INR 1.0 (0.9-1.1) Sodium (135-145) mmol/L Potassium (3.3-5.1) mmol/L Chloride (96-108) mmol/L Carbon Dioxide (22-29) mmol/L Anion Gap (12-20) BUN (9-16) mg/dL Creatinine (0.5-1.4) mg/dL Estim Creat Clear Calc Estimated GFR Random Glucose (60-115) mg/dL Calcium (8.4-10.2) mg/dL Magnesium (1.6-2.6) mg/dL Total Bilirubin (0.0-1.0) mg/dL AST (5-37) U/L ALT (0-40) U/L Alkaline Phosphatase (39-117) U/L Total Protein (6.5-8.0) g/dL Albumin (3.5-5.0) g/dL Urine Color Urine Appearance Urine pH (5.0-9.0) Ur Specific [place] (1.005-1.025) Urine Protein (Neg-Trace) mg/dL Urine Glucose (UA) (Negative) mg/dL Urine Ketones (Negative) mg/dL Urine Blood (Negative) Urine Nitrite (Negative) Ur Leukocyte Esterase (Negative) Urine RBC (0-2) /HPF Urine WBC (0-5) /HPF Ur Squamous Epith Cells (0-2) /HPF Urine Bacteria (None Seen) Hyaline Casts (0-2) /LPF COVID-19 ([place]) Negative (Negative) COVID-19 Clin Com See Note 10/10/22 10/10/22 Range/Units 20:03 20:46 WBC (4.8-10.8) X10*3/uL RBC (4.60-5.80) X10*6/uL Hgb (14.0-18.0) g/dl Hct (42.0-52.0) % MCV (80.0-98.0) fL MCH (27.0-33.0) pg MCHC (31.0-36.0) g/dl RDW (11.0-16.0) % Plt Count (160-400) X10*3/uL MPV (9.4-12.4) fL Immature Gran % (Auto) (0.0-0.4) % Neut % (Auto) (45-73) % Lymph % (Auto) (20-40) % [place] % (Auto) (2-11) % Eos % (Auto) (0-4) % Baso % (Auto) (0-2) % Lymph # (Auto) (1.2-4.9) X10*3/uL [place] # (Auto) (0.1-1.2) X10*3/uL Eos # (Auto) (0.0-0.4) X10*3/uL Baso # (Auto) (0.0-0.2) X10*3/uL Abs Immat Gran (auto) (0.00-0.03) X10*3/uL Absolute Neuts (auto) (2.0-8.3) x10*3/uL Absolute Nucleated RBC (0.0-0.012) X10*3/uL Nucleated RBC % (auto) (0.0-0.2) /100WBC PT (10.0-13.1) SEC INR (0.9-1.1) Sodium 132 L (135-145) mmol/L Potassium 4.6 D (3.3-5.1) mmol/L Chloride 101 (96-108) mmol/L Carbon Dioxide 21 L (22-29) mmol/L Anion Gap 15 (12-20) BUN 14 (9-16) mg/dL Creatinine 1.11 (0.5-1.4) mg/dL Estim Creat Clear Calc 42.9 Estimated GFR > 60 Random Glucose 104 (60-115) mg/dL Calcium 8.6 (8.4-10.2) mg/dL Magnesium 1.8 (1.6-2.6) mg/dL Total Bilirubin 0.4 (0.0-1.0) mg/dL AST 20 (5-37) U/L ALT 6 (0-40) U/L Alkaline Phosphatase 88 (39-117) U/L Total Protein 7.4 (6.5-8.0) g/dL Albumin 4.0 (3.5-5.0) g/dL Urine Color Yellow Urine Appearance Cloudy Urine pH 6.0 (5.0-9.0) Ur Specific [place] <= 1.005 (1.005-1.025) Urine Protein Negative (Neg-Trace) mg/dL Urine Glucose (UA) Negative (Negative) mg/dL Urine Ketones Negative (Negative) mg/dL Urine Blood Trace H (Negative) Urine Nitrite Negative (Negative) Ur Leukocyte Esterase Large (3+) H (Negative) Urine RBC 0-2 (0-2) /HPF Urine WBC >50 H (0-5) /HPF Ur Squamous Epith Cells 0-2 (0-2) /HPF Urine Bacteria 2+ (None Seen) Hyaline Casts 0-2 (0-2) /LPF COVID-19 ([place]) (Negative) COVID-19 Clin Com Independent Interpretation I performed an independent interpretation of an: EKG (Nonspecific T-wave inversion in lead 1 and aVL, no reciprocal changes, no ST segment depressions elevation, heart rate 69, sinus rhythm, QTC 432, no STEMI) and CT Scan (Interpretation of head CT, no brain bleed) Radiology Impression Discussion of test interpretation with radiology: I have reviewed the radiologist's reading. Radiologist Impression: CT HEAD: There is no intracranial hemorrhage, extra-axial collection, mass effect, or territorial infarction. There is mild to moderate diffuse brain parenchymal volume loss with prominence of ventricles and sulci. 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 The calvarium is intact without fracture. There is soft tissue contusion about the right frontal scalp. CT MAXILLOFACIAL: There is no preseptal soft tissue swelling. The orbital green and orbital rims are intact. There is no infiltration of the intraorbital fat or evidence of retrobulbar hematoma. The extraocular muscles and optic nerve sheath complexes are symmetric and normal in appearance. The globes are normal and symmetric. The zygomas and zygomaticomaxillary buttresses are intact. The nasal bones and jzkh-ttoqau-hrdsvve complex are intact. The maxillary alveolus and hard palate are intact. The mandible is intact with mandibular condyles normally positioned within the glenoid fossa. The osseous structures of the central skull base are intact. There is mild mucosal thickening within the paranasal sinuses. No fluid levels are seen mastoids are clear. CT CERVICAL SPINE: There is reversal of the normal cervical lordosis. No fracture is seen. There is advanced disc height loss at C5 C5 C6 and prominent endplate spurring with advanced degenerative endplate changes in addition to remodeling of the vertebral bodies with chronic height loss. There is multilevel facet arthropathy which is advanced at several levels. The craniovertebral junction appears intact. There is multilevel high-grade narrowing of the neural foramina related to uncovertebral hypertrophy and facet arthropathy. The upper lungs are clear. The cervical soft tissues are unremarkable. CT/CT head/brain wo IV con IMPRESSION: CT HEAD: No acute intracranial abnormality. ? CT CERVICAL SPINE: No cervical spine fracture or traumatic malalignment. ? CT MAXILLOFACIAL: No facial bone fracture. Right frontal scalp contusion. Discharge Plan Discharge Clinical Impression: UTI (urinary tract infection), Fall, Laceration of eyebrow Patient Disposition: Home, Self-Care Instructions: Cefuroxime (By mouth), Laceration (ED), Urinary Tract Infection in Men (ED) Additional Instructions: Your stitches need to be removed in 7-10 days. Please follow-up with your primary care physician tomorrow. If you have any worsening or new symptoms, please return to the emergency room or call 911 Prescriptions: New cefuroxime axetil 500 mg tablet 500 mg PO BID Qty: 13 0RF No Action cyclobenzaprine 10 mg tablet 10 mg PO Q8H Qty: 14 0RF simethicone 125 mg capsule 0 mg PO acetaminophen 325 mg tablet 0 mg PO sertraline 50 mg tablet 50 mg PO DAILY hydrocortisone 2.5 % cream topical BID PRN furosemide 20 mg tablet 20 mg PO DAILY aspirin 81 mg tablet,delayed release (DR/EC) 81 mg PO DAILY quetiapine 25 mg tablet 25 mg PO BEDTIME cephalexin 500 mg capsule 500 mg PO QID fluticasone propionate 50 mcg/actuation spray,suspension 1 spray intranasal DAILY PRN (Reason: allergies) finasteride 5 mg tablet 5 mg PO DAILY clotrimazole-betamethasone 1-0.05 % cream topical tamsulosin 0.4 mg capsule 0.4 mg PO BID isosorbide mononitrate 30 mg tablet extended release 24 hr 30 mg PO DAILY pantoprazole 40 mg tablet,delayed release (DR/EC) 40 mg PO BID albuterol sulfate 90 mcg/actuation HFA aerosol inhaler 2 puff inhalation Q4H PRN (Reason: wheezing) dexamethasone 4 mg tablet 4 mg PO .COMPLEX Qty: 18 0RF Rx Instructions: 4 mg PO; 1 p.o. t.i.d. x3 days, 1 p.o. b.i.d. x3 days, 1 p.o. daily x3 days
--- NOTE | 2022-10-11 00:03 | PC.NURSE ---
Per Dr. Centeno troponin no longer needed. Pt is ready for discharge.
== END 2022-10-11 00:29 | disposition home or self-care (01) ==
PROVIDERS: Physician Assistant; Emergency Provider Emergency Medicine
DX: S01.81XA Laceration without foreign body of other part of head, initial encounter (principal); R51.9 Headache, unspecified; M54.2 Cervicalgia; S01.111A Laceration without foreign body of right eyelid and periocular area, initial encounter; W01.0XXA Fall on same level from slipping, tripping and stumbling without subsequent striking against object, initial encounter; Y93.9 Activity, unspecified; Y92.9 Unspecified place or not applicable; Y99.9 Unspecified external cause status; Z20.822 Contact with and (suspected) exposure to COVID-19; Z20.828 Contact with and (suspected) exposure to other viral communicable diseases; Z79.899 Other long term (current) drug therapy
CPT/HCPCS: 12014; 70450; 70486; 72125; 80053; 81001; 83735; 85025; 85610; 87086; 87147; 87635; 93005; 99284

== ENCOUNTER 2023-01-20 13:55 | Outpatient (REF) | payer OTHER, SELFPAY ==
--- NOTE | ~2023-01-20 | XR_ITS ---
EXAMINATION: XR CHEST CLINICAL INFORMATION: Cough, wheezing and congestion. COMPARISON: Chest 05/23/2022 TECHNIQUE: 2 views of the chest were obtained. FINDINGS: The lungs are well-expanded and clear. The heart size and pulmonary vascularity is normal. No gross bony abnormality seen. XR/XR chest 2V IMPRESSION: Unremarkable chest exam.
== END 2023-01-20 13:56 | disposition home or self-care (01) ==
LOC: HO.HMGCX 13:55
PROVIDERS: PCP Internal Medicine; Visit Provider Nurse Practitioner Family
DX: R68.89 Other general symptoms and signs (principal)
CPT/HCPCS: 71046

== ENCOUNTER 2023-04-30 16:38 | Emergency (ER) | payer OTHER, SELFPAY ==
--- NOTE | ~2023-04-30 | US_ITS ---
EXAMINATION: US SCROTUM CLINICAL INFORMATION: Left testicular pain. COMPARISON: None available. TECHNIQUE: A sonogram of the scrotum was performed assessing pond-scale appearance and color Doppler flow. Spectral Doppler analysis of the arterial and venous flow were performed in the testes bilaterally. FINDINGS: RIGHT: Right testicle measures 3.8 x 1.6 x 3.2 cm, volume 10.4 mL. No focal testicular parenchymal lesions are visualized. There is a prominent single calcification in the testicular parenchyma. Spectral Doppler analysis of the arterial and venous flow is normal in the right testis. Right epididymal head is normal in size. No right hydrocele or varicocele is seen. Right epididymal Doppler flow is normal. LEFT: Left testicle measures 3.3 x 3.1 x 3.3 cm, volume 813 mL. No focal testicular parenchymal lesions are visualized. Spectral Doppler analysis of the arterial and venous flow is increased in the left testis. Left epididymal head is normal in size. No left varicocele is seen. Small hydrocele. Left epididymal Doppler flow is increased. US/US scrotum IMPRESSION: Left epididymoorchitis. No testicular torsion.
[2023-04-30 17:03] VITALS: BP 123/62; PULSE 69; RESP 16; TEMP 36.7; O2SAT 98; BMI 26.6
--- NOTE | 2023-04-30 22:40 | PC.NURSE ---
Guerrero catheter removed per MD. Of note, it appears the guerrero was only into the urethra approx 5-6 inches, and was followed by [facility] upon removal. No longer bleeding after initial flow.
[2023-04-30] MEDS: Phenazopyridine HCL 200 MG TABLET PO (22:42)
[2023-04-30] MEDS: Morphine Sulfate 4 MG/ML CARTRIDGE IM (22:42)
[2023-04-30 22:51] LABS: Appearance Urine Turbid; Color Urine Yellow; Glucose Urine UA 500 mg/dL (Negative); Leukocyte Esterase Urine Large (3+) (Negative); Nitrite Urine Negative (Negative); UMIC TRIGGER UACC YES; Urine Blood Large (3+) (Negative); Urine Ketones Negative (Negative); Urine Protein 100 (2+) mg/dL (Neg-Trace)
--- NOTE | 2023-04-30 22:56 | ED_ITS ---
HPI - Male Genitourinary General Chief complaint: Urogenital-Male Stated complaint: catherter Time Seen by Provider: 04/30/23 22:04 Source: patient and family Limitations: no limitations History of Present Illness HPI Narrative: 87-year-old male presents with a chronic indwelling Sahu catheter with suprapubic and pubic pain. Symptoms been going on for 2 days. The pain is severe. He is unable to eat as result of the pain. The pain does not radiate. The pain is sharp and burning in nature. Patient has had an indwelling Sahu catheter since November due to prostate enlargement. He was told he should have surgery but due to his chronic medical conditions he is not stable enough to have the procedure done. Patient is requesting that the Sahu catheter be removed because the pain and discomfort. Denies any fevers or chills. Denies any nausea vomiting. No previous pain management at home. Patient did have some issues 2-4 weeks ago where he did have some passing of blood clots after the Sahu catheter was replaced. However those symptoms had seemed to resolve. Related Data Home Medications Medication Instructions Recorded Confirmed acetaminophen 325 mg tablet 0 mg PO 03/10/21 01/20/23 albuterol sulfate 90 mcg/actuation 2 puff inhalation Q4H PRN wheezing 03/10/21 01/20/23 aerosol inhaler aspirin 81 mg tablet,delayed 81 mg PO DAILY 03/10/21 01/20/23 release finasteride 5 mg tablet 5 mg PO DAILY 03/10/21 01/20/23 fluticasone propionate 50 1 spray intranasal DAILY PRN 03/10/21 01/20/23 mcg/actuation nasal allergies spray,suspension furosemide 20 mg tablet 20 mg PO DAILY 03/10/21 01/20/23 hydrocortisone 2.5 % topical cream appl topical BID PRN 03/10/21 01/20/23 isosorbide mononitrate 30 mg 30 mg PO DAILY 03/10/21 01/20/23 tablet,extended release 24 hr pantoprazole 40 mg tablet,delayed 40 mg PO BID 03/10/21 01/20/23 release quetiapine 25 mg tablet 25 mg PO BEDTIME 03/10/21 01/20/23 sertraline 50 mg tablet 50 mg PO DAILY 03/10/21 01/20/23 simethicone 125 mg capsule 0 mg PO 03/10/21 01/20/23 Previous Rx's Medication Instructions Recorded cyclobenzaprine 10 mg tablet 10 mg PO Q8H #14 tabs 06/12/22 doxycycline hyclate 100 mg capsule 100 mg PO BID 7 days #14 caps 01/20/23 furosemide 20 mg tablet 20 mg PO DAILY 7 days #7 tabs 01/20/23 levofloxacin 500 mg tablet 500 mg PO DAILY #7 tabs 04/30/23 Allergies Allergy/AdvReac Type Severity Reaction Status Date / Time ibuprofen [From Advil] Allergy Unknown Unknown Verified 01/20/23 13:42 carbamazepine [From Tegretol] Allergy Unknown Verified 01/20/23 13:42 memantine AdvReac Unknown Verified 01/20/23 13:42 Review of Systems Review of Systems: CONSTITUTIONAL: Denies weight loss, fever and chills. HEENT: Denies changes in vision and hearing. RESPIRATORY: Denies SOB and cough. CV: Denies palpitations no CP. GI: Denies abdominal pain, nausea, vomiting and diarrhea. : Denies dysuria and urinary frequency. Pelvic pain MSK: Denies myalgia and joint pain. SKIN: Denies rash and pruritus. NEUROLOGICAL: Denies headache and syncope. PSYCHIATRIC: Denies recent changes in mood. Denies anxiety and depression. All other ROS are negative unless in HPI PMFSH Past Medical History Medical History Asthma exacerbation BPH (benign prostatic hyperplasia) GERD (gastroesophageal reflux disease) Lumbar radiculopathy Social History Social History Alcohol intake: never Smoked in Last 30 Days: No Use of substances other than those prescribed or required for medical reasons: No Advance Directives: No Advance Directives Information Provided: Yes Physical Exam Vital Signs: Vital Signs: Last Vital Signs Temp 98.1 F 04/30/23 17:03 Pulse 73 04/30/23 23:38 Resp 16 04/30/23 17:03 BP 136/59 L 04/30/23 23:38 Pulse Ox 95 04/30/23 23:38 O2 Del Method Room Air 04/30/23 23:38 BMI result Body Mass Index 26.6 GEN: Well developed, no acute distress, alert, oriented HEENT: Normocephalic, atraumatic, normal external ears, nose appears normal Eyes: Normal to appearance Neck: Supple, no lymphadenopathy Respiratory: Talks in complete sentences, no respiratory distress Extremities: No clubbing cyanosis or edema Neurologic: No focal neurologic deficits, cranial nerves 2-12 intact, gait normal Skin: No rash Abdomen: Protuberant, nontender, no guarding or rebound : Indwelling Sahu catheter, enlarged left testicle with tenderness Course Reevaluation(s) Reevaluation #1: Sahu catheter was removed. Patient has received levofloxacin. Was able to void. Concern continues to exist regarding incontinence versus retention. Will discuss instructions with patient and . Time: 23:47 Reevaluation #2: I attempted to recommend that the patient have the Sahu catheter replaced. However, he refused at this time. He is aware that the infection in his bladder could a sent to his kidney causing significant infection, kidney damage and potentially systemic infection. I have stressed the importance of returning immediately for any problems urinating, high fevers or other concerning symptoms at this time Time: 00:02 Medications Administered Discontinued Medications Generic Name Dose Route Start Last Admin Trade Name Gilberto PRN Reason Stop Dose Admin Levofloxacin 500 mg 04/30/23 23:24 04/30/23 23:38 Levofloxacin 500 Mg Tablet PO 04/30/23 23:25 500 mg ONCE ONE Administration Morphine Sulfate 4 mg 04/30/23 22:32 04/30/23 22:42 Morphine Sulfate 4 Mg/Ml Cartridge IM 04/30/23 22:33 4 mg ONCE ONE Administration Protocol Phenazopyridine HCl 200 mg 04/30/23 22:32 04/30/23 22:42 Phenazopyridine Hcl 200 Mg Tablet PO 04/30/23 22:33 200 mg ONCE ONE Administration Medical Decision Making Medical Decision Making MDM Narrative: Patient presents with pain and discomfort related to Sahu catheter. Also presents with left testicular pain. Examination revealed an indwelling Sahu catheter, testicular enlargement on left with tenderness. Differential diagnosis includes your UTI, orchitis, epididymitis, hydrocele, varicocele, Sahu catheter dysfunction. I spent an extensive amount of time with the patient and his . I recommended multiple times to have the Sahu catheter replaced as likely migrated and causing the degree of discomfort he is experiencing. However, patient was adamant the Sahu catheter be removed. I did provide the patient with morphine for pain reduction given the severity of his pain. I did inform the patient extensively that there is a very high likelihood that he will return within a few hours for acute urinary retention as he has an enlarged prostate and his bladder is not been trained in his likely to be atony. Will also obtain an ultrasound of the scrotum to rule out orchitis. Will obtain a urinalysis to rule out UTI. Patient will likely need antibiotics. Differential Diagnosis Differential Diagnoses: The differential diagnosis associated with the presentation includes (See above) Lab Data MDM Lab Attestation statement: I reviewed the patient's lab results. Labs: Lab Results 04/30/23 Range/Units 22:45 Urine Color Yellow Urine Appearance Turbid Urine pH 7.0 (5.0-9.0) Ur Specific [place] 1.010 (1.005-1.025) Urine Protein 100 (2+) H (Neg-Trace) mg/dL Urine Glucose (UA) 500 H (Negative) mg/dL Urine Ketones Negative (Negative) mg/dL Urine Blood Large (3+) H (Negative) Urine Nitrite Negative (Negative) Ur Leukocyte Esterase Large (3+) H (Negative) Urine RBC >20 H (0-2) /HPF Urine WBC >50 H (0-5) /HPF Ur Squamous Epith Cells 3-5 (0-2) /HPF Urine Bacteria 4+ (None Seen) Hyaline Casts >20 (0-2) /LPF Independent Interpretation I performed an independent interpretation of an: Ultrasound (Left orchitis) Radiology Impression Discussion of test interpretation with radiology: I have reviewed the radiologist's reading. Radiologist Impression: US/US scrotum IMPRESSION: Left epididymoorchitis. No testicular torsion. Dictated By:Mohit Candelaria MDSigned By:<Electronically signed by Mohit Candelaria MD in OV>04/30/23 1760 Independent Historian Clinical information obtained from an independent historian. History obtained from or confirmed by: Spouse Prescription Management I considered prescription management with: Pain Medication and Antibiotic Discharge Plan Discharge Clinical Impression: Sahu catheter problem, Acute epididymo-orchitis, Acute lower UTI Patient Disposition: Home, Self-Care Instructions: Epididymo-Orchitis (ED) Additional Instructions: Si tiene alguna dificultad para orinar, regrese inmediatamente al departamento de emergencias para que le reemplacen el cat?Daley. Prescriptions: New levofloxacin 500 mg tablet 500 mg PO DAILY Qty: 7 0RF No Action cyclobenzaprine 10 mg tablet 10 mg PO Q8H Qty: 14 0RF simethicone 125 mg capsule 0 mg PO acetaminophen 325 mg tablet 0 mg PO sertraline 50 mg tablet 50 mg PO DAILY hydrocortisone 2.5 % cream topical BID PRN furosemide 20 mg tablet 20 mg PO DAILY aspirin 81 mg tablet,delayed release (DR/EC) 81 mg PO DAILY quetiapine 25 mg tablet 25 mg PO BEDTIME fluticasone propionate 50 mcg/actuation spray,suspension 1 spray intranasal DAILY PRN (Reason: allergies) finasteride 5 mg tablet 5 mg PO DAILY isosorbide mononitrate 30 mg tablet extended release 24 hr 30 mg PO DAILY pantoprazole 40 mg tablet,delayed release (DR/EC) 40 mg PO BID albuterol sulfate 90 mcg/actuation HFA aerosol inhaler 2 puff inhalation Q4H PRN (Reason: wheezing) furosemide 20 mg tablet 20 mg PO DAILY 7 Days Qty: 7 0RF doxycycline hyclate 100 mg capsule 100 mg PO BID 7 Days Qty: 14 0RF Referrals: Yasir Saavedra MD [Physician] - 2 days Print Language: Hebrew
[2023-04-30 23:00] LABS: Bacteria Urine 4+ (None Seen); Hyaline Casts Urine >20 /LPF (0-2); RBC Urine >20 /HPF (0-2); UACC Culture Trigger YES; WBC Urine >50 /HPF (0-5)
[2023-04-30 23:38] VITALS: BP 136/59; PULSE 73; O2SAT 95
[2023-04-30] MEDS: levoFLOXacin 500 MG TABLET PO (23:38)
== END 2023-05-01 00:14 | disposition home or self-care (01) ==
PROVIDERS: Physician Assistant; Emergency Provider Emergency Medicine; PCP Internal Medicine
DX: Z46.6 Encounter for fitting and adjustment of urinary device (principal); T83.518A Infection and inflammatory reaction due to other urinary catheter, initial encounter; N39.0 Urinary tract infection, site not specified; N45.3 Epididymo-orchitis; T83.84XA Pain due to genitourinary prosthetic devices, implants and grafts, initial encounter; Y73.8 Miscellaneous gastroenterology and urology devices associated with adverse incidents, not elsewhere classified; Y92.019 Unspecified place in single-family (private) house as the place of occurrence of the external cause; Z79.82 Long term (current) use of aspirin; Z79.899 Other long term (current) drug therapy
CPT/HCPCS: 51798; 76870; 81001; 87086; 96372; 99284; 99285; J2270

== ENCOUNTER 2023-09-14 10:31 | Outpatient (AMB) | payer OTHER, SELFPAY ==
[2023-09-14 10:36] VITALS: BP 138/60; PULSE 75; TEMP 36.8; O2SAT 98; BMI 28.5
--- NOTE | 2023-09-14 10:36 | AM.OFFWIN_ITS ---
Intake Vital Signs 09/14/23 10:36 Height 5 ft 5 in Weight 171 lb BMI 28.5 BP 138/60 Blood Pressure Location Lt brachial Position Sitting Pulse 75 Pulse Source Pulse Oximeter Temp 98.3 F Temp Source Temporal Artery Scan Pulse Oximetry (%) 98 Oxygen Delivery Method Room Air Intake Visit Reasons: EST/sob([phone]) Intake Note: pt is here today for sb started sunday Patient Tobacco Use Status: Never used Tobacco Allergies ibuprofen [From Advil] Allergy (Unknown, Verified 09/14/23 10:42) Unknown carbamazepine [From Tegretol] Allergy (Verified 09/14/23 10:42) Unknown memantine Adverse Reaction (Verified 09/14/23 10:42) Unknown Do you need a note to return to daycare/school/sports/work: No HPI HPI Comments History of Present Illness Details presents with pt She is interpretting for him He feels SOB on Sunday He started with congestion, runny nose and cough around the same time Using OTC medicine without relief At night SOB worse with coughing fits. Using albuterol without relief + post nasal drip No difficulty swallowing from baseline He said he had chest pain with coughing No CP at rest He had chills and fever Last inhaler use was 9am Cough produces some phlegm PFSH Medical History Asthma exacerbation BPH (benign prostatic hyperplasia) GERD (gastroesophageal reflux disease) Lumbar radiculopathy Social History Alcohol intake: never Patient Tobacco Use Status: Never used Tobacco Review of Systems Const Reports chills, Reports fatigue, Reports fever(s) and Denies headache(s) Eyes Denies blurry vision ENT Denies dizziness, Denies otalgia, Denies headache(s), Reports nasal congestion, Reports nasal discharge, Denies sinus pressure, Reports sore throat, Denies throat swelling and Denies tongue swelling Card Denies chest pain and Reports dyspnea Resp Reports chest congestion, Reports cough, Reports pain with cough and Reports dyspnea GI Denies abdominal pain Neuro Denies dizziness, Denies headache(s) and Denies focal weakness Endo Reports fatigue Aller/Immun Denies throat swelling and Denies tongue swelling Physical Exam Vital Signs: Last Vital Signs Temp 98.3 F 09/14/23 10:36 Pulse 75 09/14/23 10:36 BP 138/60 09/14/23 10:36 Pulse Ox 98 09/14/23 10:36 Oxygen Delivery Method Room Air 09/14/23 10:36 BMI result Body Mass Index 28.5 General: Non-toxic, NAD. Speaking full sentences. Skin: Warm dry throughout Eye: EOMI, PERRL HENT: Airway patent. Uvula midline. No pharyngeal erythema or edema. No ELECTRIC POWER LINE EXAMINER. Bilateral canals clear. TM non-erythematous, non-bulging. No TM perforation or hemotympanum noted. Respiratory: CTA bilaterally. No wheezes, rales or rhonchi Cardiac: RRR. No murmur. No leg edema or calf tenderness Neurology: A/O. No aphasia or facial droop. Gait without abnormality Psych: Good mood and affect Assessment & Plan Assessment & Plan (1) Cough: Code(s): R05.9 - Cough, unspecified Qualifiers: Cough type: acute Qualified Code(s): R05.1 - Acute cough Plan: Patient seen and evaluated. Vitals stable No rales on auscultation Due to age and complaint, will obtain chest xray. I viewed chest xray 11:21am and I saw no infiltrate. Compared to previous chest xray COVID/RSV/flu ordered and obtained I discussed continuation of at home breathing tx and will give short course of Prednisone to take with food, avoiding alcohol/NSAIDs Discussed ER protocol such as CP, SOB dizziness and when to seek management in ER to pt and Patient gave verbal understanding and had no additional questions or concerns at time of discharge All questions answered Orders: Orders SARS-CoV2/FLU/RSV Today R05.9 - Cough, unspecified XR chest 2V Today R05.9 - Cough, unspecified Medications: New prednisone 40 mg (2 x 20 mg) PO DAILY 4 days 8 tabs 0RF R05.9 - Cough, unspecified Coding Level of Care Code Est Pt Level 3 (16038) Diagnoses Acute cough R05.1 Cough type: acute
== END 2023-09-14 13:19 | disposition home or self-care (01) ==
PROVIDERS: PCP Internal Medicine; Visit Provider Physician Assistant
DX: R05.1 Acute cough (principal)
CPT/HCPCS: 99213

== ENCOUNTER 2023-09-14 10:59 | Outpatient (REF) | payer OTHER, SELFPAY ==
--- NOTE | ~2023-09-14 | XR_ITS ---
EXAMINATION: XR CHEST CLINICAL INFORMATION: Cough COMPARISON: January 20, 2023 and May 23, 2022 TECHNIQUE: 2 views of the chest were obtained. FINDINGS: The cardiopericardial silhouette is enlarged. No definite findings of airspace edema. There are some stable calcified granulomas seen. There is some bronchial wall thickening present which may be related to bronchitis. There is chronic scarring noted within the right middle lobe and lingula. XR/XR chest 2V IMPRESSION: Cardiomegaly without significant acute parenchymal disease.
[2023-09-14 14:42] LABS: Influenza A PCR NEGATIVE (Negative); Influenza B PCR NEGATIVE (Negative); Resp Syncy Virus RNA Qual PCR NEGATIVE (Negative); SARS COV2 PCR INHOUSE NEGATIVE (Negative)
== END 2023-09-14 11:00 | disposition home or self-care (01) ==
LOC: HO.HMGCX 10:59
PROVIDERS: PCP Internal Medicine; Visit Provider Physician Assistant
DX: R05.9 Cough, unspecified (principal); Z20.828 Contact with and (suspected) exposure to other viral communicable diseases
CPT/HCPCS: 0241U; 71046

== ENCOUNTER 2023-09-28 09:13 | Outpatient (AMB) | payer OTHER, SELFPAY ==
[2023-09-28 09:58] VITALS: BP 112/62; PULSE 70; TEMP 36.8; O2SAT 96; BMI 28.5
--- NOTE | 2023-09-28 09:58 | MHC.OFFWIV ---
Intake Vital Signs 09/28/23 09:58 Height 5 ft 5 in Weight 171 lb BMI 28.5 BP 112/62 Blood Pressure Location Lt brachial Pulse 70 Pulse Source Pulse Oximeter Temp 98.2 F Temp Source Temporal Artery Scan Pulse Oximetry (%) 96 Oxygen Delivery Method Room Air Intake Visit Reasons: EST/SOB(lobby masked) Intake Note: pt is here today for SOB started Patient Tobacco Use Status: Never used Tobacco Allergies ibuprofen [From Advil] Allergy (Unknown, Verified 09/28/23 09:59) Unknown carbamazepine [From Tegretol] Allergy (Verified 09/28/23 09:59) Unknown memantine Adverse Reaction (Verified 09/28/23 09:59) Unknown Do you need a note to return to daycare/school/sports/work: No HPI HPI Comments History of Present Illness Details 88-year-old male with history of asthma who presented to the office complaining of shortness of breath, productive cough with yellow-green sputum, and low-grade fevers. History obtained via patient's at bedside. The patient has been sick for approximately 3 weeks with wheezing, shortness of breath, and cough. He was evaluated at the walk-in on 09/14/2023 and he was sent home on prednisone. He underwent a chest x-ray, which was negative for acute cardiac process or pneumonia. Patient's states that his symptoms have persisted and he started to develop low-grade fevers as well as a productive cough with yellow-green sputum. [facility] Medical History Asthma exacerbation BPH (benign prostatic hyperplasia) GERD (gastroesophageal reflux disease) Lumbar radiculopathy Social History Alcohol intake: never Patient Tobacco Use Status: Never used Tobacco Review of Systems Const All systems reviewed & are unremarkable except as noted in HPI and below Reports no additional complaints Eyes Reports no additional complaints ENT Reports no additional complaints Card Reports no additional complaints Resp Reports no additional complaints GI Reports no additional complaints Reports no additional complaints Musc Reports no additional complaints Skin/Breast Reports system reviewed and no additional complaints, except as documented Neuro Reports no additional complaints Psych Reports no additional complaints Endo Reports no additional complaints Rikki/Lymph Reports no additional complaints Aller/Immun Reports no additional complaints Physical Exam Vital Signs: Last Vital Signs Temp 98.2 F 09/28/23 09:58 Pulse 70 09/28/23 09:58 BP 112/62 09/28/23 09:58 Pulse Ox 96 09/28/23 09:58 Oxygen Delivery Method Room Air 09/28/23 09:58 BMI result Body Mass Index 28.5 Const Other: Vital signs reviewed. Constitutional: Non-toxic appearing. No acute distress. Well-developed and well-nourished. HEENT: Normocephalic and atraumatic. Tympanic membranes without erythema, edema, or bulging bilaterally. External auditory canals without erythema or edema bilaterally. Moist mucous membranes. No pharyngeal erythema or exudates. Skin: Warm and dry. No rashes or lesions noted. Neck: Full and painless range of motion. No cervical lymphadenopathy. Cardio: Regular rate and rhythm. No murmurs, gallops, or rubs. No lower extremity edema. No JVD. Pulmonary: No respiratory distress. No accessory muscle usage. Scattered expiratory wheezing and rhonchorous breath sounds. Gastrointestinal: Soft, nontender, and nondistended in all 4 quadrants. Musculoskeletal: Normal range of motion in joints throughout the body. No deformity or other signs of injury. Neuro: Alert and oriented x4. Cranial nerves 2-12 grossly intact. No focal deficits appreciated. Psych: Normal mood and affect. Assessment & Plan Assessment & Plan (1) Acute asthmatic bronchitis: Code(s): J45.909 - Unspecified asthma, uncomplicated Plan: This is an 88 history of asthma who presented to the walk-in clinic complaining of persistent productive cough, mild shortness of breath, wheezing, and low-grade fevers. On physical examination, patient has scattered wheezing and rhonchorous breath sounds. He is maintaining oxygen saturations on room air and he does not appear to be in any acute respiratory distress. Check chest x-ray to evaluate for acute cardiopulmonary process. Otherwise, patient sent home on p.o. prednisone taper and p.o. azithromycin 500 mg today followed by 250 mg daily x4 days. He was also given a prescription for p.o. famotidine 20 mg daily as needed for heartburn/indigestion given reports of heartburn and he is already on PPI. Recommended symptomatic management including rest, increased fluids, advil/tylenol for pain/fever as long as he has no medical contraindications, and over the counter throat lozenges/decongestants. Patient advised to follow up here or go to the emergency room for worsening/persistent symptoms. Patient and his verbalized her understanding and they are in agreement with the plan. Orders: Orders XR chest 2V Today R06.02 - Shortness of breath SARS-CoV2/FLU/RSV Today R09.89 - Other specified symptoms and signs involving the circulatory and respiratory systems Medications: New prednisone Take 4 tablets daily x3 days followed by 3 tablets daily x3 days followed by 2 tablets daily x3 days followed by 1 tablet daily x3 days followed by 1/2 tablet daily x2 days 10 mg PO DIRECTED 31 tabs 0RF famotidine 20 mg PO DAILY PRN 10 tabs 0RF heartburn/indigestion azithromycin For 250 mg dose pack: take 500 mg today (day 1), then 250 mg for 4 days (days 2-5) PO 6 tabs 0RF Coding Level of Care Code Est Pt Level 3 (58678) Diagnoses Acute asthmatic bronchitis J45.909
== END 2023-09-28 10:35 | disposition home or self-care (01) ==
PROVIDERS: PCP Internal Medicine; Visit Provider Physician Assistant Medical
DX: J45.909 Unspecified asthma, uncomplicated (principal)
CPT/HCPCS: 99213

== ENCOUNTER 2023-09-28 10:33 | Outpatient (REF) | payer OTHER, SELFPAY ==
--- NOTE | ~2023-09-28 | XR_ITS ---
EXAMINATION: XR CHEST CLINICAL INFORMATION: Shortness of breath COMPARISON: None available. TECHNIQUE: 2 views of the chest were obtained. FINDINGS: No significant abnormality is noted involving the heart, lungs, mediastinum, bony thorax or soft tissues. XR/XR chest 2V IMPRESSION: Unremarkable chest examination.
[2023-09-28 14:31] LABS: Influenza A PCR NEGATIVE (Negative); Influenza B PCR NEGATIVE (Negative); Resp Syncy Virus RNA Qual PCR NEGATIVE (Negative); SARS COV2 PCR INHOUSE NEGATIVE (Negative)
== END 2023-09-28 10:34 | disposition home or self-care (01) ==
LOC: HO.HMGCX 10:33
PROVIDERS: PCP Internal Medicine; Visit Provider Physician Assistant Medical
DX: Z11.52 Encounter for screening for COVID-19 (principal); R06.02 Shortness of breath; R09.89 Other specified symptoms and signs involving the circulatory and respiratory systems
CPT/HCPCS: 0241U; 71046

== ENCOUNTER 2024-10-08 14:18 | Outpatient (AMB) | payer OTHER, SELFPAY ==
--- NOTE | 2024-10-08 14:23 | MHC.OFFWIV ---
Intake Vital Signs 10/08/24 14:24 Weight 273 lb BP 122/84 Blood Pressure Location Rt brachial Position Sitting Pulse 58 Pulse Source Pulse Oximeter Temp 97.7 F Temp Source Oral Pulse Oximetry (%) 99 Oxygen Delivery Method Room Air Intake Visit Reasons: EP +Pneumonia(per pt), medicine not helping Intake Note: Patient here for SOB and was diagnosed with pneumonia about 1 week ago and was put on meds and finished them off but still has SOB and wheezing. Patient Tobacco Use Status: Never used Tobacco Allergies ibuprofen [From Advil] Allergy (Unknown, Verified 10/08/24 14:25) Unknown carbamazepine [From Tegretol] Allergy (Verified 10/08/24 14:25) Unknown memantine Adverse Reaction (Verified 10/08/24 14:25) Unknown Do you need a note to return to daycare/school/sports/work: No HPI HPI Comments History of Present Illness Details History - The patient is an 89-year-old male presenting with ongoing wheezing and shortness of breath. - Previously treated on September 14 due to shortness of breath and coughing; no acute findings on chest x-ray. Given 40mg x 4days. - Symptoms persisted, returning on September 28 with maintained oxygen levels; treated with prednisone taper and Azithromycin. - Presently, wheezing continues; treated symptoms include sob on exertion. - Denies respiratory infections; asthma history noted, but no tobacco use. Physical Exam General: Cooperative, healthy appearing, comfortable and no acute distress Orientation/consciousness: Patient oriented x3 Limitations: Marshallese speaking Head: Normal to inspection Ears: Hearing grossly normal bilaterally, external ears normal and TM's normal bilaterally Nose: Normal external nose present, Normal nares present and No nasal discharge present Face and sinus: Normal facial exam and Yes sinuses nontender Mouth: Normal oral and palatal mucosa present and moist mucous membranes Throat: Yes tonsils normal, Yes uvula midline. Posterior oropharynx erythema Eyes: Appearance normal, both eyes and all related structures Neck: Normal visual inspection Respiratory: Exp wheezing thoughout,. Normal respiratory effort, able to speak in complete sentences, no respiratory distress, not tachypneic, no tripod positioning and no use of accessory muscles Cardiovascular: Regular rate and rhythm. Normal S1 and S2 Skin: No rashes or lesions noted Neuro: Patient oriented x3 Extremities: Normal to inspection and Yes no clubbing, cyanosis or edema [facility] Medical History (Updated 10/08/24 @ 14:46 by Nanda Mcmullen PA-C) BPH (benign prostatic hyperplasia) GERD (gastroesophageal reflux disease) Asthma exacerbation Lumbar radiculopathy Social History Alcohol intake: never Patient Tobacco Use Status: Never used Tobacco Review of Systems Const All systems reviewed & are unremarkable except as noted in HPI and below Physical Exam Vital Signs: Last Vital Signs Temp 97.7 F 10/08/24 14:24 Pulse 58 10/08/24 14:24 BP 122/84 10/08/24 14:24 Pulse Ox 99 10/08/24 14:24 Oxygen Delivery Method Room Air 10/08/24 14:24 Office Procedures Nebulizer Treatment Nebulizer Treatment [id number]/MDI RX initial, or Nebulizer Subsequent Treatment Office Meds ipratropium 0.5 mg-albuterol 3 mg (2.5 mg base)/3 mL nebulization soln Performing Provider: Nanda Mcmullen PA-C Performing Location: [facility] [place] [facility] Administered by: Nanda Mcmullen PA-C on 10/08/24 15:00 Dose Route Admin Location Dispensed Lot Number Expiration Date 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 Will get CXR to verify no other acute process such as PNA or other. Will treat with Augmentin x7d as ZPak was already given 2 weeks ago although this appears to be more asthma and less of a respiratory infection. Given the patient's ongoing wheezing and shortness of breath despite 2 recent prior courses of prednisone, the management should focus on reassessing the current asthma treatment plan and ensuring adherence. Considering the use of bronchodilators or mucolytics will be crucial if additional symptom relief is needed, along with patient education on medication use and potential trigger management at home to alleviate symptoms. Monitoring the patient's response closely to guide future decisions or escalations in care is advised. Recommended using albuterol inhaler Q4-6H PRN. Call PCP to ask for appt to adjust baseline asthma medications. If shortness of breath gets worse, he should go to the Emergency Department. Patient was informed and verbally consented to the use of an ambient scribe for clinic note documentation during this visit (2) Asthma exacerbation: Code(s): J45.901 - Unspecified asthma with (acute) exacerbation Qualifiers: Asthma severity: mild Asthma persistence: persistent Qualified Code(s): J45.31 - Mild persistent asthma with (acute) exacerbation Plan: as above Orders: Orders XR chest 2V Today R05.9 - Cough, unspecified AMB Nebulizer Treatment Today J45.31 - Mild persistent asthma with (acute) exacerbation Medications: New amoxicillin-pot clavulanate 875-125 mg 1 tab PO Q12H 14 tabs 0RF Coding Level of Care Code New Pt Level 4 (98854) Diagnoses URI, acute J06.9 Mild persistent asthma with exacerbation J45.31 Asthma severity: mild Asthma persistence: persistent CPT Codes Nebulizer Treatment - Nebulizer Treatment, initial or subsequent: [id number]/MDI RX initial, or Nebulizer Subsequent Treatment ([id number])
[2024-10-08 14:24] VITALS: BP 122/84; PULSE 58; TEMP 36.5; O2SAT 99
--- OUTSIDE RECORDS SUMMARY | 2024-10-08 16:39 | XMS_ITS | Clinical Summary ---
Author Organization [facility] Address [address] [place] [address] Phone Care Team Providers Care Instructor Modeling Name Role Phone Janae Brown MD Primary Care Prov ider Allergies Active Allergy Reactions Criticality Noted Date Comments Carbamazepine High 02/15/2021 Donepezil Hcl 05/29/2014 nightmares Ibuprofen Nausea And Vomiting 11/04/2012 Advil [Aspartame-fd&c Blue #2 Al Hollis-ibuprofen] Advil [Aspartame-fd&c Blue #2 Al Hollis-ibuprofen] Other reaction(s): bad stomach reaction, stomach burning sensation Memantine 05/29/2014 Namenda [Fd&c Yellow #[id number]-[id number] [id number]] Nightmares Oseltamivir Phosphate Nausea And Vomiting 11/05 Medications Medication Sig Dispensed Refills Start Date End Date Status ammonium lactate (LAC-HYDRIN) 12 % lotion Apply to soles of feet daily. At night wear socks to bed Active aspirin 81 mg EC tablet Take 1 Tablet by mouth daily. 4 Active cetirizine (ZyrTEC) 10 mg tablet TAKE 1 TABLET BY MOUTH DAILY NEEDED FOR ALLERGIES OR RHINITIS. 4 Active clotrimazole-betam ethasone (LOTRISONE) 1-0.05 % cream APPLY TOPICALLY TO AFFECTED AREA EVERY DAY 4 Active simethicone (Gas Relief Extra Strength) 125 mg capsule TAKE 1 CAPSULE BY MOUTH TWICE A DAY NEEDED FIR ABDOMINAL PAIN & GAS 4 Active cyclobenzaprine (FLEXERIL) 10 mg tablet 2 Active diclofenac (VOLTAREN) 1 % topical gel APPLY 4 G TOPICALLY 2 TIMES DAILY NEEDED (PAIN). 3 Active sacubitriL-valsart an (Entresto) 24-26 mg per tablet 3 Active esomeprazole (NexIUM) [address] capsule Take 1 Capsule by mouth 2 times daily (before meals) for 360 days. 4 01/26/20 25 Active dapagliflozin propanediol (Farxiga) 10 mg tablet 3 Active finasteride (PROSCAR) 5 mg tablet Take 5 mg by mouth daily. 2 Active fluticasone propionate (FLONASE) 50 mcg/actuation nasal spray 1 sprays each nostril once a day as needed for allergies or rhinitis 1 Active ketotifen (ZADITOR) 0.025 % ophthalmic solution Apply every 8 to 12 hours. 3 Active metoprolol succinate (TOPROL-XL) 100 mg 24 hr tablet Take 1 Tablet by mouth daily. 4 Active lactose-reduced food (ENSURE COMPLETE ORAL) Take 1 Can by mouth 2 times daily. SIDDHARTH-99 One can twice a day 60 cans per month with 11 refills Vanilla and strawberry flavors only 3 Active olopatadine (PATADAY) 0.2 % ophthalmic solution Place 1 Drop into both eyes daily. 3 Active spironolactone (ALDACTONE) 25 mg tablet Take 1 Tablet by mouth daily. 3 Active tamsulosin (FLOMAX) 0.4 mg 24 hr capsule TAKE 1 CAPSULE BY MOUTH TWICE A DAY 30 MINUTES AFTER THE SAME MEALS 2 Active furosemide (LASIX) 20 mg tablet Take 1 tablet (20 mg total) by mouth 1 (one) time each day. 90 tablet 1 4 Active Stool Softener 50 mg capsule TOME MEENA CAPSULA DOS VECES AL PATEL 60 capsule 4 4 Active ondansetron ODT (ZOFRAN-ODT) 4 mg disintegrating tabletIndications: Nausea with vomiting, unspecified Dissolve 1 tablet (4 mg total) on top of the tongue every 8 (eight) hours if needed for nausea or vomiting. 21 tablet 3 5 Active QUEtiapine (SEROquel) 25 mg tablet Take 1 tablet (25 mg total) by mouth at bedtime. 90 tablet 5 12/23/19 25 Active albuterol HFA (PROAIR HFA ; PROVENTIL HFA ; VENTOLIN HFA) 90 mcg/actuation inhaler Inhale 2 puffs by mouth every 6 (six) hours if needed for wheezing. 6.7 g 3 5 Active isosorbide mononitrate (IMDUR) 30 mg 24 hr tablet Take 1 tablet (30 mg total) by mouth 1 (one) time each day. Do not crush or chew. 90 each 3 5 09/23/19 26 Active acetaminophen (TYLENOL 8 HOUR) 650 mg 8 hr tablet Take 1 tablet (650 mg total) by mouth every 8 (eight) hours if needed for mild pain. Do not crush, chew, or split. 30 tablet 3 5 Active ezetimibe (ZETIA) 10 mg tablet TOME 1 TABLETA POR VIA ORAL TODOS [place] BROWN 90 tablet 1 5 Active sertraline (ZOLOFT) 50 mg tablet TOME 1 TABLETA POR VIA ORAL TODOS [place] 90 tablet 1 5 Active acetaminophen (TYLENOL 8 HOUR) 650 mg 8 hr tablet Take 1 Tablet by mouth 2 times daily as needed for Pain. 4 09/23/19 25 Discontinued(Re order) albuterol HFA (PROAIR HFA ; PROVENTIL HFA ; VENTOLIN HFA) 90 mcg/actuation inhaler Inhale 2 Puffs into the lungs every 4 hours as needed for Cough, Wheezing or Shortness of Breath. 4 09/23/19 25 Discontinued(Re order) ezetimibe (ZETIA) 10 mg tablet Take 1 Tablet by mouth daily. 4 10/07/19 25 Discontinued isosorbide mononitrate (IMDUR) 30 mg 24 hr tablet Take 1 Tablet by mouth daily. 4 09/23/19 25 Discontinued(Re order) sertraline (ZOLOFT) 50 mg tablet Take 1 Tablet by mouth daily. 4 10/07/19 25 Discontinued ondansetron ODT (ZOFRAN-ODT) 4 mg disintegrating tabletIndications: Nausea with vomiting, unspecified Dissolve 1 tablet (4 mg total) on top of the tongue every 8 (eight) hours if needed for nausea or vomiting. 21 tablet 4 09/23/19 25 Discontinued(Re order) QUEtiapine (SEROquel) 25 mg tablet TAKE 1 TABLET BY MOUTH AT BEDTIME NEEDED (INSOMNIA). 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 Persistent stable anemia. Esophageal dysmotility 11/15/2015 Overview (06/26/2024): Barium swallow 11/05/2015. Elevated PSA 08/05/2015 Hyperlipidemia 08/05/2015 Assessment & Plan (09/23/2024 2:24 PM EST): Currently on Zetia. Last LDL was 141. Will recheck lipid profile and a CMP before his next visit. Orders: Comprehensive metabolic panel; Future Lipid panel with reflex to direct LDL; Future Thyroid stimulating hormone; Future Mild aortic stenosis 09/04/2014 Overview (06/26/2024): Mild 1.8cm2, no EF65%, mild dd Paroxysmal atrial fibrillation 08/24/2014 Overview (06/26/2024): Stopped in 2017 due to bleed, was on coumadin Assessment & Plan (09/23/2024 2:24 PM EST): Rate controlled. On Metoprolol, ASA. Follows with cardiology. Asymptomatic. Will continue same medications. Orders: Comprehensive metabolic panel; Future Lipid panel with reflex to direct LDL; Future Thyroid stimulating hormone; Future DJD (degenerative joint disease) of knee 014 Alzheimer's disease 03/21/2013 Assessment & Plan (09/23/2024 2:24 PM EST): Patient with Alzheimer's dementia. Previously following with neurology but lost to follow-up, needs to reestablish with another provider. Today I gave her his the information for her to make an appointment. Will continue quetiapine for now and sertraline, until seen by the specialist. Renal cyst 03/10/2013 Overview (06/26/2024): FU ultrasound needed 02/28 Spinal stenosis 09/16/2012 Allergic conjunctivitis 07/26/2012 Onychomycosis 07/26/2012 Constipation 06/10/2012 GERD (gastroesophageal reflux disease) 2 HTN (hypertension) 06/10/2012 Assessment & Plan (09/23/2024 2:24 PM EST): Well controlled. Today 120/61. Continue metoprolol, spironolactone, Imdur, furosemide, Entresto, Farxiga. Follows regularly at cardiology [facility]. Will continue same medications, recommended to follow a low salt diet. Encounters Date Type Department Care Team Description 10/08/2024 Telephone Adult Medicine [address] [phone] Janae Quiroz MD pneumonia; x ray 10/06/2024 Telephone Gastroenterology - [place] [address] [facility] [place] [address] [facility] [address] [place] [address] Amelia Stewart PA 09/23/2024 1:00 PM EST Office Visit Adult Medicine [address] [phone] Janae Quiroz MD Primary hypertension (Primary Dx); Paroxysmal atrial fibrillation (CMS/HCC); Mixed hyperlipidemia; Alzheimer's disease (CMS/HCC); Nausea with vomiting, unspecified; Encounter for screening involving social determinants of health (SDoH); Screening for depression 09/14/2024 Telephone Gastroenterology - [place] [address] [facility] [address] [facility] [address] [place] [address] Amelia Stewart PA 09/11/2024 8:45 AM EST - 09/11/2024 11:59 PM EST Hospital Encounter [facility] Xray [address] [place] [address] Dysphagia, unspecified; Nausea with vomiting, unspecified; Gastro-esophageal reflux disease without esophagitis Discharge Disposition: Home or Self Care from Last 3 Months Immunizations Name Administration Dates Next Due Influenza Quadravalent, MDCK , 0.5ml, preservative free (Flucelvax) 6mo and older 09/19/2018 Influenza trivalent, 0.5mL ( Fluzone High-dose) 65yo and older 06/13/2023,06/10/2021,07/02/2019 Influenza trivalent, with pr eservative (Fluzone; Afluria) 6mo and older 11/24/2016,07/05/2014,05/28/2013,06/10 Influenza, Unspecified 06/04/2024,06/02/2015 PPD Test 10/27/2015 [facility] SARS-CoV-2 COVID-19, mRNA, LNP-S, preservative free 01/05/2021,12/16/2020 Pneumococcal conjugate 13 va lent (Prevnar 13, PCV13) 2mo and older 11/24/2016 Pneumococcal polysaccharide 23 valent (Pneumovax 23) 2yo and older 05/29/2014 Td Tetanus diptheria (Tdvax) 7yo and older 02/16/2021,08/16/2010 Surgical History Surgery Date Site/Laterality Comments HERNIA REPAIR 1996 Left PROCEDURE: HISTORICAL HERNIA REPAIR/ING OTHER SURGICAL HISTORY 2018 Bilateral PROCEDURE: [place] ICAPSULAR CATARACT XTRJ INSJ IO LENS PRSTH 1 STG Medical History Medical History Date Comments HTN (hypertension) 06/10/2012 DX:HTN (hyper tension) GERD (gastroesophageal reflu x disease) 06/10/2012 DX:GERD (gastroesophageal re flux disease) Memory impairment 06/10/2012 DX:Memory impa irment Arthritis 06/10/2012 DX:Arthritis Constipation 06/10/2012 DX:Constipation Onychomycosis 07/26/2012 DX:Onychomycosis Allergic conjunctivitis 07/26/2012 DX:Aller gic conjunctivitis Spinal stenosis 09/16/2012 DX:Spinal stenos is Renal cyst 03/10/2013 DX:Renal cyst; C OMMENT: FU ultrasound needed 02/28 Paroxysmal atrial fibrillati on ([facility] 08/24/2014 DX:Paroxysmal atrial fibrill ation ([facility]); COMMENT: On coumadin Mild aortic stenosis 09/04/2014 DX:Mild aor tic stenosis; COMMENT: Mild 1.8cm2, no EF65%, mild dd DJD (degenerative joint dise ase) of knee 12/17/2013 DX:DJD (degenerative joint d isease) of knee Dementia ([facility]) 03/21/2013 DX:Dementia ( [facility]) CVA (cerebral vascular accid ent) ([facility]) 08/24/2014 DX:CVA (cerebral vascular ac cident) (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 MRI of the brain showed multiple acute and subacute infarcts within right frontal and parietal lobes compatible with embolic process. Esophageal dysmotility 11/15/2015 DX:Esopha geal dysmotility; COMMENT: Barium swallow 11/05/2015. 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 MRI of the brain showed multiple acute and subacute infarcts within right frontal and parietal lobes compatible with embolic process. Hematuria 09/19/2018 DX:Hematuria DNR (do not resuscitate) 03/07/2019 DX:DNR (do not resuscitate) History of tobacco abuse DX:Hist ory of tobacco abuse; COMMENT: 10 pack yrs Wears hearing aid in both ears 04/01/2024 D X:Wears hearing aid in both ears Family History Medical History Relation Name Comments Blindness Brother 1 cataract No Known Problems Brother 2 Other: mental retardation Daughter 1 de af and mute No Known Problems Daughter 2 x1 healthy daughter No Known Problems Father Cataracts Mother Diabetes Sister 1 Blindness Sister 2 cataract No Known Problems Son x2 healthy sons Glaucoma Neg Hx Macular degeneration Neg Hx Strabismus Neg Hx Relation Name Status Comments Brother 1 Brother 2 Daughter 1 Alive Daughter 2 Alive Father Mother Sister 1 Sister 2 Son Alive Social History Tobacco Use Types Packs/Day Years Used Date Smoking Tobacco: Former Cigarettes Q uit: 09/17/1978 Smokeless Tobacco: Former Tobacco Cessation:Counseling Given: Not Answered Alcohol Use Standard Drinks/Week Comments No 0 (1 standard drink = 0.6 oz pur e alcohol) Housing Instability Answer Date Recorde d Are you worried that in the next 2 months you may not have stable housing? No 09/23/2024 Food Access & Nutrition Answer Date Rec orded Do you have access to a vari ety of food including fruits and vegetables? Yes 09/23/2024 Health Literacy Answer Date Recorded How often do you need to hav e someone help you when you read instructions, pamphlets, or other written material from your doctor or pharmacy? Never 09/23/2024 Caregiver: How often do you need to have someone help you when you read instructions, pamphlets, or other written material from your doctor or pharmacy? Not on file 09/23/2024 Financial Risk Answer Date Recorded How hard is it for you to pa y for the very basics like food, housing, medical care, and air conditioning / heating? Not very hard 09/23/2024 Transportation Answer Date Recorded Has the lack of transportati on kept you from meetings, work, or from getting things needed for daily living? No Has the lack of transportati on kept you from medical appointments or from getting medications? No 09/23/2024 Social Isolation Answer Date Recorded How often do you feel lonely or isolated from th ose around you? Never 09/23/2024 Food Risk Answer Date Recorded Within the past 12 months we worried whether our food would run out before we got money to buy more. Never true 09/23/2024 Within the past 12 months th e food we bought just didn't last and we didn't have money to get more. Never true 09/23/2024 Dependent Care Answer Date Recorded Do you need help finding or paying for care for your loved ones. For example, children's choir director or elderly care for an older adult? No 09/23/2024 Education Answer Date Recorded Do you think completing more education or training, like finishing a GED, going to college, or learning a trade, would be helpful for you? No 09/23/2024 Employment and Income Answer Date Recor ded During the last four weeks, have you been actively looking for work? No 09/23/2024 Living Situation Answer Date Recorded What is your living situation? 0 09/23/2024 Sex and Gender Information Value Date Recorded Sex Assigned at Not on file Gender Identity Not on file Sexual Orientation Not on file Job Start Date Occupation Industry Not on file Not on file Not on file Obstetrics History Last Filed Vital Signs Vital Sign Reading Time Taken Comments Blood Pressure 120/61 09/23/2024 12:47 PM EST Pulse 60 09/23/2024 12:47 PM EST Temperature 35.7 ??C (96.2 ??F) 09/23/2024 12:[address] Respiratory Rate 16 09/23/2024 12:47 PM EST Oxygen Saturation - - Inhaled Oxygen Concentration - - Weight 77.7 kg (171 lb 3.2 oz) 09/23/2024 12:47 PM EST Height 157.5 cm (5' 2 ) 09/23/2024 12:47 PM EST Body Mass Index 31.31 09/23/2024 12:47 PM EST Plan of Treatment Upcoming Encounters Date Type Department Care Team (Late st Contact Info) Description 01/22/2025 9:00 AM EDT Office Visit Adult Medicine [address] [phone] Janae Brown MD [address] [place] [id number] Health Maintenance Due Date Last Done Comments Zoster Vaccines (1 of 2) 1986 RSV Immunization Patients 60+ Years Old (1 - 1-dose 75+ series) 2011 Medicare Annual Wellness Visit 08/26/2022 COVID-19 Vaccine (3 season) 2024 01/05/2021, 12/16/2020 Hypertension/CHF/CAD Annual BMP Blood Test 01/15/2025 01/16/2024, 01/16/2024 Depression Screening 09/23/2025 09/23/2024 Falls Risk Assessment 09/23/2025 09/23/2024 Social Influencers of Health Screening 09/23/2025 09/23/2024 Cholesterol Screening (Lipid Panel) 01/15/2029 01/16/2024, 01/16/2024 DTaP,Tdap,and Td Vaccines (3 - Td or Tdap) 02/16/2031 02/16/2021, 08/16/2010 Pneumococcal Vaccine: 65+ Years Completed 11/24/2016, 05/29/2014 Influenza Vaccine Completed 06/04/2024, , 06/10/2021, Additional history exists HIB Vaccines Aged Out No longer eligi ble based on patient's age to complete this topic HPV Vaccines Aged Out No longer eligi ble based on patient's age to complete this topic Hepatitis A Vaccines Aged Out No long er eligible based on patient's age to complete this topic Hepatitis B Vaccines Aged Out No long er eligible based on patient's age to complete this topic IPV Vaccines Aged Out No longer eligi ble based on patient's age to complete this topic MMR Vaccines Aged Out No longer eligi ble based on patient's age to complete this topic Meningococcal ACWY Vaccine Aged Out N o longer eligible based on patient's age to complete this topic RSV Immunization Patients Under 20 months Aged Out No longer eligible based on patient's age to complete this topic Varicella Vaccines Aged Out No longer eligible based on patient's age to complete this topic Procedures Procedure Name Priority Date/Time Associated Diagnosis Comments XR ESOPHAGRAM Routine 09/11/2024 10:07 AM EST Dysphagia, unspecified Nausea with vomiting, unspecified Gastro-esophageal reflux disease without esophagitis ANNUAL BMP BLOOD TEST Routine 01/16/2024 LIPID PANEL Routine 01/16/2024 from Last 3 Months or Most Recently Relevant to Health Maintenance Results * XR Esophagram (09/11/2024 10:07 AM EST) Anatomical Region Laterality Modality Head and Neck Radiographic Clara ging 09/11/2024 2:52 PM EST Impressions 09/11/2024 3:51 PM EST 1. Moderate esophageal dysmotility. 2. Lodging of 13 mm barium tablet at the GE junction for duration of exam as described above. -------- FINAL REPORT -------- Dictated By: China Rivera Dictated Date: 09/11/2024 14:52 ET Assigned Physician: Babar Arndt Reviewed and Electronically Signed By: Babar Arndt Signed Date: 09/11/2024 15:51 ET Workstation ID: [id number] Transcribed By: Self Edit Transcribed Date: 09/11/2024 14:58 ET Resident/PA/SOCIAL MEDIA ANALYST: China Rivera Narrative 09/11/2024 3:51 PM EST FINDINGS: Double contrast esophagram performed. COMPARISON: Esophagram January 02, 2017 HISTORY: Patient is an 89-year-old male with history of dysphagia, poor historian. Shareholder radiographs: 1 view chest radiograph demonstrates mild cardiomegaly and mediastinal borders within normal limits. Lungs are overall clear bilaterally. There are mild, scattered reticular opacities along the right lower lobe and left costophrenic angle, nonspecific. Moderate bony degenerative changes of the thoracolumbar spine. 1 view lateral soft tissue neck demonstrates no prevertebral soft tissue masses. Airway is widely patent. There is a large anterior osteophyte formation at the level of C4-5. Nuchal ligament is calcified. Effervescent crystals were administered orally. Thick and thin barium were administered orally under fluoroscopic control. Pharyngoesophagram: Rapid sequence imaging of the hypopharynx during swallowing demonstrates prompt initiation of swallowing. There is normal soft palate elevation and normal epiglottic motion. There is no laryngeal penetration or amanda aspiration. There is no residual in the vallecula nor in the piriform sinuses. Thoracic esophagus: There is moderate esophageal dysmotility. Normal distensibility and mucosal pattern without evidence of ulceration or mass formation. Patient was instructed to swallow 13 mm barium tablet which became lodged at the area of the GE junction for duration of exam. While this may be secondary to dysmotility, stricture within this area cannot be entirely excluded. Hiatal hernia: None Reflux: Unable to elicit DAP: 9.03 Gycm^2 Procedure Note Babar Arndt MD - 09/11/2024 FINDINGS: Double contrast esophagram performed. COMPARISON: Esophagram January 02, 2017 HISTORY: Patient is an 89-year-old male with history of dysphagia, poorhistorian. Shareholder radiographs: 1 view chest radiograph demonstrates mild cardiomegalyand mediastinal borders within normal limits. Lungs are overall clearbilaterally. There are mild, scattered reticular opacities along the rightlower lobe and left costophrenic angle, nonspecific. Moderate bonydegenerative changes of the thoracolumbar spine. 1 view lateral softtissue neck demonstrates no prevertebral soft tissue masses. Airway iswidely patent. There is a large anterior osteophyte formation at the levelof C4-5. Nuchal ligament is calcified. Effervescent crystals were administered orally. Thick and thin barium wereadministered orally under fluoroscopic control. Pharyngoesophagram: Rapid sequence imaging of the hypopharynx duringswallowing demonstrates prompt initiation of swallowing. There is normalsoft palate elevation and normal epiglottic motion. There is no laryngealpenetration or amanda aspiration. There is no residual in the vallecula norin the piriform sinuses. Thoracic esophagus: There is moderate esophageal dysmotility. Normaldistensibility and mucosal pattern without evidence of ulceration or massformation. Patient was instructed to swallow 13 mm barium tablet whichbecame lodged at the area of the GE junction for duration of exam. Whilethis may be secondary to dysmotility, stricture within this area cannot beentirely excluded. Hiatal hernia: None Reflux: Unable to elicit DAP: 9.03 Gycm^2 IMPRESSION: 1. Moderate esophageal dysmotility. 2. Lodging of 13 mm barium tablet at the GE junction for duration of examas described above. -------- FINAL REPORT -------- Dictated By: China Rivera Dictated Date: 09/11/2024 14:52 ET Assigned Physician: Babar Arndt Reviewed and Electronically Signed By: Babar Arndt Signed Date: 09/11/2024 15:51 ET Workstation ID: [id number] Transcribed By: Self Edit Transcribed Date: 09/11/2024 14:58 ET Resident/PA/SOCIAL MEDIA ANALYST: China Rivera Amelia WANG IMG FLUOROSCOPY PROC EDURES * Annual BMP Blood Test (01/16/2024) Annual BMP Blood Test abstracted Historical Provider MD PADILLA LEMA E * (ABNORMAL) Lipid panel (01/16/2024) LDL/HDL Ratio 7(A) 0 - 4 Triglycerides 258(A) 0 - 150 mg/dL Cholesterol 227(A) 0 - 200 mg/dL HDL 35(A) 40 mg/dL LDL Cholesterol 141(A) 0 - 100 mg/dL Blood Venous blood specimen / Unknown Historical Provider LAB BLOOD ORDERAB LES from Last 3 Months or Most Recently Relevant to Health Maintenance Care Teams Instructor Modeling Relationship Specialty Start Date End Date Janae Brown MD [address] [place] [id number] PCP - General Internal Medicine 09/08/24
--- OUTSIDE RECORDS SUMMARY | 2024-10-08 16:39 | XMS_ITS | Continuity of Care Document ---
Author Organization [email or web address] [facility], [place] in [facility] Address [address] [place] [phone] Care Team Providers Care Stone Decorator Name Role Phone HIM KIKO OTHER Assessment Encounter Date Assessment Date Assessment LastModified by Organization Details LastModified Time 10/08/2024 10/08/2024 Impression: 89yo/m with multiple chronic medical problems as above including dementia, CHF, HTN, stroke, asthma, referred for evaluation for continued cough and dyspnea on exertion. Patient had been seen by [facility] approximately 6 days ago, diagnosed with pneumonia, given 5 day course of azithromycin which patient finished. Patient has had continued symptoms, now approximately day 10. They describe continued cough, some dyspnea on exertion, subjective fevers/chills. For medic in home patient is awake, alert, well appearing, in no distress. Elderly appearing but nontoxic. No associated chest pain, abdominal pain, nausea/vomiting, bloody stools. No changes in mental status, neck pain or stiffness, neurologic symptoms. No dyspnea at rest, only with exertion. No LE edema or asymmetry. No pleurisy or hemoptysis. They deny other ROS. On exam patient is well appearing, breathing comfortably, no LE edema, lungs have no crackles at the bases, he does have asymmetric lung sounds with rhonchi in the left lung, not present on the right. Rest of his exam is re-assuring. Plan: 89yo/m with hx and PE as above. He was supposed to followup with PMD s/p instED visit and abx course, but cancelled due to weather. Today he is breathing comfortably and tolerating PO but having continued symptoms. Family feel that he is safe to remain at home and followup with PMD. I believe it's reasonable for patient to continue to be treated for CAP, per UTD guidelines I will send rx for augmentin and doxycycline for 5 days to his pharmacy. states they will call PMD for followup today and help schedule CXR. I will also flag CRCs to see if they can arrange. No chest pain, no dyspnea at rest, the rest of his history and exam are re-assuring. I have a lower clinical suspicion at this time for an occult emergency medical condition such as ACS, PE, aortic dissection, ARDS, sepsis. Family advised to seek care immediately with any acute worsening symptoms which they understand. Discharged from visit with mandatory timed followup and strict return precautions reviewed. Primary care, consider CXR, f/u in 24-48 hours Disposition: We discussed the diagnostic uncertainty of home visits and the risk associated with this. In this case, the patient and I felt this to be an acceptable and reasonable amount of risk given the benefit of avoiding an ED visit. We discussed the need to seek care urgently/emergen tly in the setting of any new or worsening serious symptoms [id number] Not available 10/08/2024 13:53:55 Plan of Treatment Reminders Order Date Submit Date Provider Last Modified By Organization Details Last Modified Time Details Appointments Urgent Care 2024 01:08P Alan Morrow MD Not available Not available Not available Lab rapid SARS CoV 2 Ag, QL IA, respirato ry specimen 2024 025 [email or web address] 4 [facility] [address] [place] [address], [phone], 10/08/2024 13:44:54 rapid flu (A+B) 2024 025 [email or web address] 4 [facility], [address] [place] [address], [phone], 10/08/2024 13:44:53 Referral None recorded. Procedures None recorded. Surgeries None recorded. Imaging None recorded. Medication Orders amoxicill in 875 mg-potass ium clavulana te 125 mg tablet 2024 025 [facility][id number], [address] [place], [address], 10/08/2024 13:47:10 doxycycli ne monohydra te 100 mg capsule 2024 025 [facility][id number], [address] [place] [address], [id number], 10/08/2024 13:47:40 Patient TargetsNo targets recorded. Patient InstructionsNo instructions recorded. Reason for Referral None Reported. Results Created Date Observation Date Name Description Value Unit Range Abnormal Flag Note LastModifiedBy Organization Detail LastModifiedTime Result Notes None recorded. Medical Equipment None Reported. Allergies Allergen ID Allergen Name Allergen Category Reaction Reaction Severity Criticality Documentation Date Start Date Code Code System Note Provider Name and Address Organization Details Recorded Time 75647 Advil medicatio n Not available Not available Not available 10/02/2024 69007 0 RxNorm Not Available [facility] - production 5 10:37:18 88285 Aricept medicatio n Not available Not available Not available 10/02/2024 33104 6 RxNorm Not Available [facility] - production 5 10:37:18 37998 Namenda medicatio n Not available Not available Not available 10/02/2024 29284 6 RxNorm Not Available [facility] - production 5 10:37:18 09456 Tegretol medicatio n Not available Not available Not available 10/02/2024 08483 9 RxNorm MAGED FRANK MD [address] [place] [address],[address] [facility], [place], [phone], [employer] 5 11:34:44 Medications Name Sig Start Date Stop Date Status Note LastModified by Organization Details LastModified Time quetiapine 25 mg tablet TAKE 1 TABLET BY MOUTH AT BEDTIME NEEDED (INSOMNIA). active Not Available Not Available Not Available ammonium lactate 12 % lotion APPLY TO SOLES OF FEET EVERY NIGHT WEAR SOCKS TO BED active Not Available Not Available No t Available cetirizine 10 mg tablet TAKE 1 TABLET BY MOUTH DAILY NEEDED FOR ALLERGIES OR RHINITIS. active Not Available Not Available No t Available azithromycin 250 mg tablet Take 1 TABLET (250 MG) BY ORAL ROUTE ONCE DAILY FOR 4 DAYS. Start Rx 10/03/242024 active Not Available Not Available Not Avai lable isosorbide mononitrate ER 30 mg tablet,exten ded release 24 hr TAKE 1 TABLET BY MOUTH 1 TIME EACH DAY. DO NOT CRUSH OR CHEW. active Not Available Not Available No t Available metoprolol succinate ER 100 mg tablet,exten ded release 24 hr TOME 1 TABLETA POR V A ORAL TODOS LOS D active Not Available Not Available No t Available aspirin 81 mg tablet,delay ed release TOME 1 TABLETA POR V A ORAL TODOS LOS D active Not Available Not Available No t Available spironolacto ne 25 mg tablet TAKE 1 TABLET BY MOUTH ONCE DAILY active Not Available Not Available No t Available acetaminophe n ER 650 mg tablet,exten ded release TAKE 1 TAB (650MG) BY MOUTH EVERY 8 HOURS IF NEEDED FOR MILD PAIN. DO NOT CRUSH, CHEW, OR SPLIT. active Not Available Not Available No t Available doxycycline monohydrate 100 mg capsule Take 1 capsule twice a day by oral route, for 5 days. 2024 active Not Available Not Available Not Avai lable pantoprazole 40 mg tablet,delay ed release TOME MEENA TABLETA TODOS LOS D active Not Available Not Available No t Available esomeprazole magnesium 40 mg capsule,hallie yed release TOME 1 C PSULA POR V A ORAL DOS VECES AL D A active Not Available Not Available No t Available clotrimazole -betamethaso ne 1 %-0.05 % topical cream APPLY TOPICALLY TO AFFECTED AREA EVERY DAY active Not Available Not Available No t Available Gas Relief Extra Strength 125 mg capsule TAKE 1 CAPSULE BY MOUTH TWICE A DAY NEEDED FIR ABDOMINAL PAIN & GAS active Not Available Not Available N ot Available aspirin 81 mg chewable tablet TAKE 1 TABLET BY MOUTH ONCE DAILY active Not Available Not Available No t Available furosemide 20 mg tablet TOME 1 TABLETA POR V A ORAL TODOS LOS D active Not Available Not Available No t Available albuterol sulfate HFA 90 mcg/actuatio n aerosol inhaler INHALE DANDO DOS SOPLIDOS POR V A ORAL CADA SEIS HORAS CUANDO SEA NECESARIO PARA LA SIBILANCIA active Not Available Not Available N ot Available ondansetron 4 mg disintegrati ng tablet DISUELVA MEENA TABLETA ON THE TONGUE CADA OCHO HORAS CUANDO SEA NECESARIO PARA LAS N USEAS Y V MITOS active Not Available Not Available No t Available fluticasone propionate 50 mcg/actuatio n nasal spray,suspen adelso USE 1 SPRAY IN EACH NOSTRIL DOS VECES AL D A active Not Available Not Available No t Available sertraline 50 mg tablet TOME 1 TABLETA POR V A ORAL TODOS LOS D active Not Available Not Available No t Available finasteride 5 mg tablet TAKE 1 TABLET BY MOUTH EVERY DAY active Not Available Not Available No t Available amoxicillin 875 mg-potassium clavulanate 125 mg tablet Take 1 tablet every 12 hours by oral route. 2024 active Not Available Not Available Not Avai lable Stool Softener 50 mg capsule TOME MEENA C PSULA DOS VECES AL D A active Not Available Not Available No t Available ezetimibe 10 mg tablet TOME 1 TABLETA POR V A ORAL TODOS LOS D active Not Available Not Available No t Available Farxiga 10 mg tablet TAKE 1 TABLET BY MOUTH ONCE DAILY active Not Available Not Available No t Available Entresto 49 mg-51 mg tablet TAKE 1 TABLET BY MOUTH TWICE A DAY *STOP FUROSEMIDE & ISOSORBIDE* active Not Available Not Available Not Available Entresto 24 mg-26 mg tablet TOME 1 TABLETA POR V A ORAL DOS VECES AL D A active Not Available Not Available No t Available Vitals Date Recorded Body temperature Body weight Respiratory rate Heart rate Body height Oxygen saturation Oxygen saturation in Arterial blood by Pulse oximetry Systolic blood pressure Diastolic blood pressure Provider Name and Address Organization Details Last Updated DateTime 5 98.4 [degF] 64160.0 48 g 18 /min 58 /min 157.48 cm 98 % 98 % 140 mm[Hg] 64 mm[Hg] Not Available [facility] - production 5 13:23:20 Social History None recorded. Functional Status None recorded. Mental Status None recorded. Family History Nothing Reported. Medical History No medical history recorded. Past Encounters Encounter ID Performer Location Encounter Start Date Encounter Closed Date Diagnosis/Indication Diagnosis SNOMED-CT Code Diagnosis ICD10 Code Diagnosis Note [id number] MAGED FARNK MD Main - [facility] [address] [place] [phone] 10/02/2024 11:29:08 10/02/2024 20:14:34 Pneumonia 358143729 J18.9 [id number] Yossi Morrow MD Main - [facility] [address] [place] [phone] 10/08/2024 13:23:18 10/08/2024 15:03:48 Pneumonia 134443425 J18.9 Health Concerns Section Related Observation LastModified by Organization Detai ls LastModified Time None Recorded Concern Status LastModified by Organization Details LastModified Time None Recorded Payers Encounter Date Sequence Insurance Name Policy Number Policy Spivey Covered Member ID Spivey Member ID Guarantor Name 10/08/2024 1 [facility] - DOS ON OR AFTER 2022 - DUAL ELIGIBLE - [facility] OPTIONS AND ONE CARE (MEDICARE REPLACEMENT/ADV ANTAGE - HMO) Neville Messina [id number] Neville Messina Notes Date Note Type Note Provider Name and Address Organization Details Recorded Time 10/08/2024 text/html HPI: Mbr's , Vanessa, calling in to the [facility], reports member had inst[facility] visit last week (10/02/24) and was dx with pneumonia, prescribed azithromycin 250mg daily for 5 days. Reports member took medications as prescribed but no improvement in sx. Reports dry cough, SOB with exertion, chest congestion noise in his chest , headache, sore throat. Denies SOB at rest, chest pains, fevers. Vanessa repots they had PCP appt scheduled yesterday but she cancelled due to the weather. Vanessa was offered [facility] for HV today. Vanessa in agreement. Advised to call back for new/worsening sx and educated on sx that warrant 911/EMS. ...................... ...................... ...................... ...................... ...................... ...................... ......... 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 Address: [address] [place] [address] [place] [address], Machined [employer] Metal Sprayer: Evert TOVAR No.: [id number] Spooling Operator POC Test Results from Oscar Hirsch Rapid influenza antigen (13:18:33) Flu: - Rapid COVID antigen (13:18:33) COVID: - ...................... ...................... ...................... ...................... ...................... ...................... ......... Spooling Operator Note From Oscar Hirsch: [employer] visit for male pt. Pt presents with family at home for pneumonia concerns. Pt Setswana speaking only so county coroner was used. Onset about 10 days ago. Pt seen by insted last week and started on 5 day course of azithromycin. Some slight improvement noted with still concerned about coarse breath sounds audible without stethescope. Pt denies SOB. V/S taken as listed. Pt afebrile. Pt swabbed for flu and covid coming up negative. Wheezes and rhonchi noted on lung exam. No signs of fluid overload. Pt has been using inhaler PRN and taking cough syrup as well. Consulted with [facility] Dr. Morrow who prescribed additional course of antibiotics and recommended follow up with PCP for chest x ray. Pt and family informed they can use inhaler q 4 hours. Reviewed red flags for ED. Pt education provided. ...................... ...................... ...................... ...................... ...................... ...................... ......... [facility] Consulted: Yossi Morrow ...................... ...................... ...................... ...................... ...................... ...................... ......... Disposition: Fulfilled Yossi Morrow MD [address] [facility],[address] [facility], [place], [address], YESY - OANH YANG 10/08/2024 15:03:45
--- OUTSIDE RECORDS SUMMARY | 2024-10-08 16:39 | XMS_ITS | Encounter Summary ---
Author Organization [facility] Address [address] [place] [address] Care Team Providers Care E Commerce Architect Name Role Phone Janae Brown MD Primary Care Prov ider Reason for Referral * Imaging (Routine) - Closed Specialty Diagnoses / Procedures Referred By Demarcus flores Referred To Contact Radiology Diagnoses Dysphagia, unspecified Nausea with vomiting, unspecified Gastro-esophageal reflux disease without esophagitis Procedures XR Esophagram Amelia Stewart PA [address] [address] [facility] Referral ID Status Reason Start Date Expiration Date Visits Re quested Visits Authorized [id number] Closed 07/05/2024 07/05/2025 1 1 Reason for Visit * Imaging (Routine) - Closed Specialty Diagnoses / Procedures Referred By Contchristopher t Referred To Contact Radiology Diagnoses Dysphagia, unspecified Nausea with vomiting, unspecified Gastro-esophageal reflux disease without esophagitis Procedures XR Esophagram Amelia Stewart PA 175 [facility] [address] [place] [address] [facility] Referral ID Status Reason Start Date Expiration Date Visits Re quested Visits Authorized [id number] Closed 07/05/2024 07/05/2025 1 1 Encounter Details Date Type Department Care Team (Latest Contact Info) Description 09/11/2024 8:45 AM EST - 09/11/2024 11:59 PM [facility] Hospital Encounter [facility] [place] [phone] Dysphagia, unspecified; Nausea with vomiting, unspecified; Gastro-esophageal reflux disease without esophagitis Discharge Disposition: Home or Self Care Social History Tobacco Use Types Packs/Day Years Used Date Smoking Tobacco: Former Cigarettes Q uit: 09/17/1978 Smokeless Tobacco: Former Alcohol Use Standard Drinks/Week Comments No 0 (1 standard drink = 0.6 oz pur e alcohol) Sex and Gender Information Value Date Recorded Sex Assigned at Not on file Gender Identity Not on file Sexual Orientation Not on file Job Start Date Occupation Industry Not on file Not on file Not on file documented as of this encounter Medications at Time of Discharge Medication Sig Dispensed Refills Start Date End Date ammonium lactate (LAC-HYDRIN) 12 % lotion Apply to soles of feet daily. At night wear socks to bed aspirin 81 mg EC tablet Take 1 Tablet by mouth daily. 04/09/2024 cetirizine (ZyrTEC) 10 mg tablet TAKE 1 TABLET BY MOUTH DAILY NEEDED FOR ALLERGIES OR RHINITIS. 04/09/2024 clotrimazole-betamethas one (LOTRISONE) 1-0.05 % cream APPLY TOPICALLY TO AFFECTED AREA EVERY DAY 12/25/2023 cyclobenzaprine (FLEXERIL) 10 mg tablet 06/12/2022 dapagliflozin propanediol (Farxiga) 10 mg tablet 03/27/2023 diclofenac (VOLTAREN) 1 % topical gel APPLY 4 G TOPICALLY 2 TIMES DAILY NEEDED (PAIN). 11/28/2022 esomeprazole (NexIUM) [address] capsule Take 1 Capsule by mouth 2 times daily (before meals) for 360 days. 01/31/2024 01/25/2025 finasteride (PROSCAR) 5 mg tablet Take 5 mg by mouth daily. 12/22/2021 fluticasone propionate (FLONASE) 50 mcg/actuation nasal spray 1 sprays each nostril once a day as needed for allergies or rhinitis 01/05/2021 furosemide (LASIX) 20 mg tablet Take 1 tablet (20 mg total) by mouth 1 (one) time each day. 90 tablet 1 08/28/2024 ketotifen (ZADITOR) 0.025 % ophthalmic solution Apply every 8 to 12 hours. 03/29/2023 lactose-reduced food (ENSURE COMPLETE ORAL) Take 1 Can by mouth 2 times daily. SIDDHARTH-99 One can twice a day 60 cans per month with 11 refills Vanilla and strawberry flavors only 06/13/2023 metoprolol succinate (TOPROL-XL) 100 mg 24 hr tablet Take 1 Tablet by mouth daily. 04/09/2024 olopatadine (PATADAY) 0.2 % ophthalmic solution Place 1 Drop into both eyes daily. 03/29/2023 sacubitriL-valsartan (Entresto) 24-26 mg per tablet 03/27/2023 simethicone (Gas Relief Extra Strength) 125 mg capsule TAKE 1 CAPSULE BY MOUTH TWICE A DAY NEEDED FIR ABDOMINAL PAIN & GAS 03/24/2024 spironolactone (ALDACTONE) 25 mg tablet Take 1 Tablet by mouth daily. 03/27/2023 Stool Softener 50 mg capsule TOME MEENA CAPSULA DOS VECES AL PATEL 60 capsule 4 08/28/2024 tamsulosin (FLOMAX) 0.4 mg 24 hr capsule TAKE 1 CAPSULE BY MOUTH TWICE A DAY 30 MINUTES AFTER THE SAME MEALS 12/12/2021 acetaminophen (TYLENOL 8 HOUR) 650 mg 8 hr tablet Take 1 Tablet by mouth 2 times daily as needed for Pain. 04/09/2024 09/23/2024 albuterol HFA (PROAIR HFA ; PROVENTIL HFA ; VENTOLIN HFA) 90 mcg/actuation inhaler Inhale 2 Puffs into the lungs every 4 hours as needed for Cough, Wheezing or Shortness of Breath. 09/19/2023 09/23/2024 ezetimibe (ZETIA) 10 mg tablet Take 1 Tablet by mouth daily. 04/09/2024 10/07/2024 isosorbide mononitrate (IMDUR) 30 mg 24 hr tablet Take 1 Tablet by mouth daily. 04/09/2024 09/23/2024 ondansetron ODT (ZOFRAN-ODT) 4 mg disintegrating tabletIndications:Nause a with vomiting, unspecified Dissolve 1 tablet (4 mg total) on top of the tongue every 8 (eight) hours if needed for nausea or vomiting. 21 tablet 08/28/2024 09/23/2024 QUEtiapine (SEROquel) 25 mg tablet TAKE 1 TABLET BY MOUTH AT BEDTIME NEEDED (INSOMNIA). 90 tablet 1 08/28/2024 09/23/2024 sertraline (ZOLOFT) 50 mg tablet Take 1 Tablet by mouth daily. 12/25/2023 10/07/2024 documented as of this encounter Discharge Disposition Disposition Code Departure Means Destination Home or Self Care documented in this encounter Plan of Treatment Upcoming Encounters Date Type Department Care Team (Late st Contact Info) Description 01/22/2025 9:00 AM EDT Office Visit Adult Medicine [address] [phone] Janae Brown MD [address] [place] [phone] documented as of this encounter Procedures Procedure Name Priority Date/Time Associated Diagnosis Comments XR ESOPHAGRAM Routine 09/11/2024 10:07 AM EST Dysphagia, unspecified Nausea with vomiting, unspecified Gastro-esophageal reflux disease without esophagitis documented in this encounter Results * XR Esophagram (09/11/2024 10:07 AM [...] Signed Date: 09/11/2024 15:51 ET Workstation ID: [id number] Transcribed By: Self Edit Transcribed Date: 09/11/2024 14:58 ET Resident/PA/CEO ZIFF DAVIS: China Rivera Narrative 09/11/2024 3:51 PM EST FINDINGS: Double contrast esophagram performed. COMPARISON: Esophagram January 02, 2017 HISTORY: Patient is an 89-year-old male with history of dysphagia, poor historian. Group Exercise Instructor radiographs: 1 view chest radiograph demonstrates mild [...] 89-year-old male with history of dysphagia, poorhistorian. Group Exercise Instructor radiographs: 1 view chest radiograph demonstrates mild [...] epiglottic motion. There is no laryngealpenetration or amadna aspiration. There is no residual in the [...] Signed Date: 09/11/2024 15:51 ET Workstation ID: [id number] Transcribed By: Self Edit Transcribed Date: 09/11/2024 14:58 ET Resident/PA/CEO ZIFF DAVIS: China Rivera Amelia MUÑIZ FLUOROSCOPY PROC EDURES documented in this encounter Visit Diagnoses Diagnosis Dysphagia, unspecified Nausea with vomiting, unspecified Gastro-esophageal reflux disease without esophagitis documented in this encounter Administered Medications Inactive Administered Medications - up to 3 most recent administrations Medication Order MAR Action Action Date Dose Rate Site barium sulfate (E-Z-DISK) tablet 700 mg 700 mg, oral, Once in imaging, Starting on Leila 09/11/24 at 1008, For 1 dose, Swallow whole with 1-2 swallows of water just prior to fluoroscopic examination. Given 09/11/2024 10:12 AM EST 700 mg barium sulfate (E-Z-HD) 98 % suspension 100 mL 100 mL, oral, Once in imaging, Starting on Leila 09/11/24 at 1009, For 1 dose Given 09/11/2024 10:11 AM EST 100 mL barium sulfate (E-Z-PAQUE) 96 % (w/w) suspension 100 mL 100 mL, oral, Once in imaging, Starting on Leila 09/11/24 at 1008, For 1 dose Given 09/11/2024 10:11 AM EST 100 mL documented in this encounter Care Teams E Commerce Architect Relationship Specialty Start Date End Date Janae Brown MD [address] [place] [phone] PCP - General Internal Medicine 09/08/24 documented as of this encounter
--- OUTSIDE RECORDS SUMMARY | 2024-10-08 16:39 | XMS_ITS | Encounter Summary ---
Author Organization [facility] Address [address] [place] [address] Care Team Providers Care Foundry Supervisor Name Role Phone Janae Brown MD Primary Care Prov ider Encounter Details Date Type Department Care Team (Late st Contact Info) Description 10/06/2024 Telephone Gastroenterology - [place] [address] [facility] [address] [place] [address] Amelia Stewart PA [address] [facility] [address] [place] [address] Social History Tobacco Use Types Packs/Day Years [...] care for your loved ones. 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 [...] on file documented as of this encounter Progress Notes * FELIPE Oliver - 10/08/2024 8:57 AM EST Hadley KONG * Laure Barcenas [place] - 10/06/2024 3:16 PM EST Spoke to patients and family and himself have been battling a cold so they have not gotten thechance to contact cardiology. They will try to get in contact with them tomorrow * FELIPE Oliver - 10/06/2024 1:39 PM EST Please call patient or patient and ask them if it is okay to proceed with endoscopy, they supposed to get clearance from automotive service director. If not can we contact automotive service director, please let me know... documented in this encounter Plan of Treatment Upcoming Encounters Date Type Department Care Team (Late st Contact Info) Description 01/22/2025 9:00 AM EDT Office Visit Adult [address] [phone] Janae Brown MD [address] [place] [phone] documented as of this encounter Visit Diagnoses Not on filedocumented in this encounter Additional Health Concerns Assessment Noted Time PHQ-9 Depression Total Score: 0 09/23/19 25 12:48 PM EST A fall risk assessment has been complete d for the patient 09/23/2024 12:48 PM EST documented as of this encounter Care Teams Foundry Supervisor Relationship Specialty Start Date End Date Janae Brown MD [address] [place] [phone] PCP - General Internal Medicine 09/08/24 documented as of this encounter
--- OUTSIDE RECORDS SUMMARY | 2024-10-08 16:39 | XMS_ITS | Encounter Summary ---
Author Organization [facility] Address [address] [place] [address] Care Team Providers Care National Stormwater Leader Name Role Phone Janae Brown MD Primary Care Prov ider Reason for Visit * Reason Comments Follow-up Med review Encounter Details Date Type Department Care Team (Late st Contact Info) Description 09/23/2024 1:00 PM EST Office Visit Adult Medicine [address] [phone] Janae Brown MD [address] [place] [address] Primary hypertension (Primary Dx); Paroxysmal atrial fibrillation (CMS/HCC); Mixed hyperlipidemia; Alzheimer's disease (CMS/HCC); Nausea with vomiting, unspecified; Encounter for screening involving social determinants of health (SDoH); Screening for depression Social History Tobacco Use Types Packs/Day Years [...] care for your loved ones. For example, early childhood special educator or elderly care for an older adult? [...] on file documented as of this encounter Last Filed Vital Signs Vital Sign Reading [...] Mass Index 31.31 09/23/2024 12:47 PM EST documented in this encounter Ordered Prescriptions Prescription Sig Dispensed Refills Start Date End Da te acetaminophen (TYLENOL 8 HOUR) 650 mg 8 hr tablet Take 1 tablet (650 mg total) by mouth every 8 (eight) hours if needed for mild pain. Do not crush, chew, or split. 30 tablet 3 09/23/2024 isosorbide mononitrate (IMDUR) 30 mg 24 hr tablet Take 1 tablet (30 mg total) by mouth 1 (one) time each day. Do not crush or chew. 90 each 3 09/23/2024 09/23/2025 albuterol HFA (PROAIR HFA ; PROVENTIL HFA ; VENTOLIN HFA) 90 mcg/actuation inhaler Inhale 2 puffs by mouth every 6 (six) hours if needed for wheezing. 6.7 g 3 09/23/2024 QUEtiapine (SEROquel) 25 mg tablet Take 1 tablet (25 mg total) by mouth at bedtime. 90 tablet 09/23/2024 12/22/2024 ondansetron ODT (ZOFRAN-ODT) 4 mg disintegrating tabletIndications:Nausea with vomiting, unspecified Dissolve 1 tablet (4 mg total) on top of the tongue every 8 (eight) hours if needed for nausea or vomiting. 21 tablet 3 09/23/2024 documented in this encounter Progress Notes * Janae Brown MD - 09/23/2024 1:00 PM ESTAssociated Problem(s): HTN (hypertension) Well controlled. Today 120/61. Continue metoprolol, spironolactone, Imdur, furosemide, Entresto, Farxiga. Follows regularly at cardiology [facility]. Will continue same medications, recommended to follow a low salt diet. * Janae Brown MD - 09/23/2024 1:00 PM ESTAssociated Problem(s): Paroxysmal atrial fibrillation (CMS/HCC) Rate controlled. On Metoprolol, ASA. Follows with cardiology. Asymptomatic. Will continue same medications. Orders: Comprehensive metabolic panel; Future Lipid panel with reflex to direct LDL; Future Thyroid stimulating hormone; Future * Janae Brown MD - 09/23/2024 1:00 PM ESTAssociated Problem(s): Hyperlipidemia Currently on Zetia. Last LDL was 141. Will recheck lipid profile and a CMP before his next visit. Orders: Comprehensive metabolic panel; Future Lipid panel with reflex to direct LDL; Future Thyroid stimulating hormone; Future * Janae Brown MD - 09/23/2024 1:00 PM ESTAssociated Problem(s): Alzheimer's disease (CMS/HCC) Patient with Alzheimer's dementia. Previously following with neurology but lost to follow-up, needsto reestablish with another provider. Today I gave her his the information for her to make an appointment. Will continue quetiapine for now and sertraline, until seen by the specialist. * Janae Brown MD - 09/23/2024 1:00 PM EST Images from the original note were not included. Chief Complaint Neville Messina is a 89 y.o. male presenting for Follow-up (Med review) Subjective Patient with a pmh of HTN, HLD, Afib, Ao stenosis, CVA, esophageal dysmotility, dementia. Feels well, compliant with medications. His takes care of him. Sees cardiology at [facility] for Afib, Ao stenosis. His states he has intermittent macroscopic hematuria. Already evaluated by urology, patient isnot a candidate for prostate surgery (as recommended by the specialist as per his , for elevated CV risk) The following portions of the patient's history were reviewed by a provider in this encounter and updated as appropriate: Allergies: He is allergic to carbamazepine, donepezil hcl, ibuprofen, memantine, and oseltamivir phosphate. Medications: Current Outpatient Medications Medication Instructions acetaminophen (TYLENOL 8 HOUR) 650 mg, oral, Every 8 hours PRN, Do not crush, chew, or split. albuterol HFA (PROAIR HFA ; PROVENTIL HFA ; VENTOLIN HFA) 90 mcg/actuation inhaler 2 puffs, inhalation, Every 6 hours PRN ammonium lactate (LAC-HYDRIN) 12 % lotion Apply to soles of feet daily. At night wear socks to bed aspirin 81 mg EC tablet Take 1 Tablet by mouth daily. cetirizine (ZyrTEC) 10 mg tablet TAKE 1 TABLET BY MOUTH DAILY NEEDED FOR ALLERGIES OR RHINITIS. clotrimazole-betamethasone (LOTRISONE) 1-0.05 % cream APPLY TOPICALLY TO AFFECTED AREA EVERY DAY cyclobenzaprine (FLEXERIL) 10 mg tablet dapagliflozin propanediol (Farxiga) 10 mg tablet diclofenac (VOLTAREN) 1 % topical gel APPLY 4 G TOPICALLY 2 TIMES DAILY NEEDED (PAIN). esomeprazole (NexIUM) [address] capsule Take 1 Capsule by mouth 2 times daily (before meals) for 360days. ezetimibe (ZETIA) 10 mg tablet Take 1 Tablet by mouth daily. finasteride (PROSCAR) 5 mg tablet Take 5 mg by mouth daily. fluticasone propionate (FLONASE) 50 mcg/actuation nasal spray 1 sprays each nostril once a day as needed for allergies or rhinitis furosemide (LASIX) 20 mg, oral, Daily isosorbide mononitrate (IMDUR) 30 mg, oral, Daily, Do not crush or chew. ketotifen (ZADITOR) 0.025 % ophthalmic solution Apply every 8 to 12 hours. lactose-reduced food (ENSURE COMPLETE ORAL) Take 1 Can by mouth 2 times daily. SIDDHARTH-99 One can twice a day 60 cans per month with 11 refills Vanilla and strawberry flavors only metoprolol succinate (TOPROL-XL) 100 mg 24 hr tablet Take 1 Tablet by mouth daily. olopatadine (PATADAY) 0.2 % ophthalmic solution Place 1 Drop into both eyes daily. ondansetron ODT (ZOFRAN-ODT) 4 mg, translingual, Every 8 hours PRN QUEtiapine (SEROQUEL) 25 mg, oral, Nightly sacubitriL-valsartan (Entresto) 24-26 mg per tablet sertraline (ZOLOFT) 50 mg tablet Take 1 Tablet by mouth daily. simethicone (Gas Relief Extra Strength) 125 mg capsule TAKE 1 CAPSULE BY MOUTH TWICE A DAY NEEDED FIR ABDOMINAL PAIN & GAS spironolactone (ALDACTONE) 25 mg tablet Take 1 Tablet by mouth daily. Stool Softener 50 mg capsule TOME MEENA CAPSULA DOS VECES AL PATEL tamsulosin (FLOMAX) 0.4 mg 24 hr capsule TAKE 1 CAPSULE BY MOUTH TWICE A DAY 30 MINUTES AFTER THE SAME MEALS Depression Screening (PHQ2/9): Depression Screening Will the patient answer the depression risk questions?: Yes Over the last 2 weeks, how often have you been bothered by little interest or pleasure in doing things?: Not at all Over the last 2 weeks, how often have you been bothered by feeling down, depressed, or hopeless?: Not at all Depression Risk: 0 PHQ9 Full Set of Questions Over the last 2 weeks, how often have you been bothered by little interest or pleasure in doing things?: Not at all Over the last 2 weeks, how often have you been bothered by feeling down, depressed, or hopeless?: Not at all Depression Risk Score NEW: 0 Anxiety Screening: Social Influencer of Health (SIOH): Social Influencers of Health Who provided answers?: Self Within the past 12 months we worried whether our food would run out before we got money to buy more.: Never true Within the past 12 months the food we bought just didn't last and we didn't have money to get more.: Never true How hard is it for you to pay for the very basics like food, housing, medical care, and air conditioning / heating?: Not very hard Are you worried that in the next 2 months you may not have stable housing?: No Do you have access to a variety of food including fruits and vegetables?: Yes Has the lack of transportation kept you from meetings, work, or from getting things needed for daily living?: No Has the lack of transportation kept you from medical appointments or from getting medications?: No How often do you feel lonely or isolated from those around you?: Never How often do you need to have someone help you when you read instructions, pamphlets, or other written material from your doctor or pharmacy?: Never Review of Systems: Review of Systems Constitutional: Negative. Respiratory: Negative. Cardiovascular: Negative. Gastrointestinal: Negative. All other systems reviewed and are negative. Objective BP 120/61 Pulse 60 Temp 35.7 ??C (96.2 ??F) (Temporal) Resp 16 Ht 1.575 m (62 ) Wt 77.7 kg (171 lb 3.2 oz) BMI 31.31 kg/m?? Physical Exam Vitals reviewed. Constitutional: Appearance: Normal appearance. Cardiovascular: Rate and Rhythm: Normal rate and regular rhythm. Heart sounds: Normal heart sounds. Pulmonary: Effort: Pulmonary effort is normal. Breath sounds: Normal breath sounds. Musculoskeletal: General: No swelling. Normal range of motion. Cervical back: Neck supple. Skin: General: Skin is warm. Neurological: General: No focal deficit present. Mental Status: He is alert. Assessment/Plan Assessment & Plan Primary hypertension Well controlled. Today 120/61. Continue metoprolol, spironolactone, Imdur, furosemide, Entresto, Farxiga. Follows regularly at cardiology [facility]. Will continue same medications, recommended to follow a low salt diet. Paroxysmal atrial fibrillation (CMS/HCC) Rate controlled. On Metoprolol, ASA. Follows with cardiology. Asymptomatic. Will continue same medications. Orders: Comprehensive metabolic panel; Future Lipid panel with reflex to direct LDL; Future Thyroid stimulating hormone; Future Mixed hyperlipidemia Currently on Zetia. Last LDL was 141. Will recheck lipid profile and a CMP before his next visit. Orders: Comprehensive metabolic panel; Future Lipid panel with reflex to direct LDL; Future Thyroid stimulating hormone; Future Alzheimer's disease (CMS/HCC) Patient with Alzheimer's dementia. Previously following with neurology but lost to follow-up, needsto reestablish with another provider. Today I gave her his the information for her to make an appointment. Will continue quetiapine for now and sertraline, until seen by the specialist. Nausea with vomiting, unspecified Orders: ondansetron ODT (ZOFRAN-ODT) 4 mg disintegrating tablet; Dissolve 1 tablet (4 mg total) on top of the tongue every 8 (eight) hours if needed for nausea or vomiting. Encounter for screening involving social determinants of health (SDoH) Negative screening Screening for depression Negative screening All questions and concerns were addressed. Patient verbalizes understanding and agrees with above treatment plan. Patient was advised to contact the office with any worsening symptoms or if new or existing problems arise. Patient to follow- up in 4 months. I have applied the code G2211 to this patient???s visit as the primary care provider dealing with (hypertension, atrial fibrillation, hyperlipidemia) leading to the extensive work up, and management associated with the medical care of this patient. This patient???s serious conditions and complex medical conditions also required several consultants needing management and coordination through my office. I have reviewed all information as it pertains to the management of this patient for final approval. Janae Colindres MD ADULT MEDICINE [address] Dept: [phone] Dept Date of Visit: 09/23/2024 documented in this encounter Plan of Treatment Upcoming Encounters Date Type Department Care Team (Late st Contact Info) Description 01/22/2025 9:00 AM EDT Office Visit [address] [phone] Janae Brown MD [address] [place] [id number] Scheduled Orders Name Type Priority Associated Diagnoses Orde r Schedule Comprehensive metabolic panel Lab Routine Paroxysmal atrial fibrillation (CMS/HCC) Mixed hyperlipidemia Expected: 01/21/2025, Expires: 01/21/2025 Lipid panel with reflex to direct LDL Lab Routine Paroxysmal atrial fibrillation ([facility]) Mixed hyperlipidemia Expected: 01/21/2025, Expires: 09/23/2025 Thyroid stimulating hormone Lab Routine Paroxysmal atrial fibrillation ([facility]) Mixed hyperlipidemia Expected: 01/21/2025, Expires: 09/23/2025 documented as of this encounter Visit Diagnoses Diagnosis Primary hypertension- Primary Unspecified essential hypertension Paroxysmal atrial fibrillation ([facility]) Atrial fibrillation Mixed hyperlipidemia Alzheimer's disease ([facility]) Alzheimer's disease Nausea with vomiting, unspecified Encounter for screening involving social determinants of health (SDoH) Screening for depression documented in this encounter Discontinued Medications Medication Sig Discontinue Reason Start Date End Da te acetaminophen (TYLENOL 8 HOUR) 650 mg 8 hr tablet Take 1 Tablet by mouth 2 times daily as needed for Pain. Reorder 04/09/2024 09/23/2024 albuterol HFA (PROAIR HFA ; PROVENTIL HFA ; VENTOLIN HFA) 90 mcg/actuation inhaler Inhale 2 Puffs into the lungs every 4 hours as needed for Cough, Wheezing or Shortness of Breath. Reorder 09/19/2023 09/23/2024 isosorbide mononitrate (IMDUR) 30 mg 24 hr tablet Take 1 Tablet by mouth daily. Reorder 04/09/2024 09/23/2024 ondansetron ODT (ZOFRAN-ODT) 4 mg disintegrating tabletIndications:Nausea with vomiting, unspecified Dissolve 1 tablet (4 mg total) on top of the tongue every 8 (eight) hours if needed for nausea or vomiting. Reorder 08/28/2024 09/23/2024 QUEtiapine (SEROquel) 25 mg tablet TAKE 1 TABLET BY MOUTH AT BEDTIME NEEDED (INSOMNIA). Reorder 08/28/2024 09/23/2024 documented as of this encounter Additional Health Concerns Assessment Noted Time PHQ-9 Depression Total Score: 0 09/23/19 25 12:48 PM EST A fall risk assessment has been complete d for the patient 09/23/2024 12:48 PM EST documented as of this encounter Care Teams National Stormwater Leader Relationship Specialty Start Date End Date Janae Brown MD [address] [place] [address] PCP - General Internal Medicine 09/08/24 documented as of this encounter
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
--- OUTSIDE RECORDS SUMMARY | 2024-10-08 16:39 | XMS_ITS | Data Portability ---
Author Organization MD - [facility], Allergy Address [address] [address] Assessment Encounter Date Assessment Date Assessment LastModified by Organization Details LastModified Time 04/10/2024 04/10/2024 Patient presents for evaluation of ears and hearing. Otologic exam unremarkable aside from a cerumen impaction that was easily cleared. 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 There is statistically significant asymmetry in 2 noncontiguous frequencies. Recommend binaural amplification; rationale and benefits reviewed and patient understands. Copy of audiogram provided to patient along with a medical clearance form and a list of providers who accept their insurance. Recommend annual audiometric testing, sooner with perceived change in hearing. All questions were answered. [email or web address] Not available 04/10/2024 12:22:50 Plan of Treatment Reminders Order Date Submit Date Provider Last Modified By Organization Details Last Modified Time Details Appointments Establish ed 15 2024 09:30A M SOFIA MITCHELL PA-C Not available Not available Not available Lab None recorded. Referral None recorded. Procedures None recorded. Surgeries None recorded. Imaging None recorded. Medication Orders None recorded. Patient TargetsNo targets recorded. Patient InstructionsNo instructions recorded. Reason for Referral None Reported. Results Created Date Observation Date Name Description Value Unit Range Abnormal Flag Note LastModifiedBy Organization Detail LastModifiedTime 04/10/20 audio gram No observ ation record ed. [email or web address] Not Available 03/18 13:59:33 05/06/20 24 03/25/2019 imagi ng/di agnos tic resul t No observ ation record ed. [email or web address] Not Available 22:13:06 08/20/03/25/2019 audio gram No observ ation record ed. [email or web address] Not Available 22:13:08 05/06/20 24 04/07/2020 imagi ng/di agnos tic resul t No observ ation record ed. [email or web address] Not Available 22:13:16 05/06/20 24 06/30/2021 imagi ng/di agnos tic resul t No observ ation record ed. [email or web address] Not Available 22:13:36 05/06/2006/30/2021 imagi ng/di agnos tic resul t No observ ation record ed. [email or web address] Not Available 22:13:37 05/06/20 24 03/25/2019 audio gram No observ ation record ed. [email or web address] Not Available 22:13:52 05/06/20 24 04/07/2020 audio gram No observ ation record ed. [email or web address] Not Available 22:13:56 05/06/20 24 06/30/2021 audio gram No observ ation record ed. [email or web address] Not Available 22:14:12 Result Notes None recorded. 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 Procedures Surgical History Date Name Laterality Status Provider Name and Address Organization Details Recorded Time Comp Audio with Tymps (13966 & 46007) completed ODIN SPRINGER [address] [facility],[place] [address], [place], [address], [facility] - [facility] 04/10/2024 11:59:29 Cerumen removal without microscope bilat completed SOFIA MITCHELL PA-C [address] [facility] [address], [place], [address], [facility] - [facility] 04/10/2024 12:21:01 Imaging Results Imaging Date Name Status LastModified by Organiz ation Details LastModified Time 04/10/2024 audiogram completed [email or web address] Information n ot available 04/10/2024 13:59:33 03/25/2019 imaging/diagno stic result completed Information not available 05/06/2024 22:13:06 03/25/2019 audiogram completed Information not available 05/06/2024 22:13:08 04/07/2020 imaging/diagno stic result completed Information not available 05/06/2024 22:13:16 06/30/2021 imaging/diagno stic result completed Information not available 05/06/2024 22:13:36 06/30/2021 imaging/diagno stic result completed Information not available 05/06/2024 22:13:37 03/25/2019 audiogram completed Information not available 05/06/2024 22:13:52 04/07/2020 audiogram completed Information not available 05/06/2024 22:13:56 06/30/2021 audiogram completed Information not available 05/06/2024 22:14:12 Procedure Notes None recorded. Medical Equipment None Reported. Allergies Allergen ID Allergen Name Allergen Category Reaction Reaction Severity Criticality Documentation Date Start Date Code Code System Note Provider Name and Address Organization Details Recorded Time 43969 Tegretol medicatio n other Not available Not available 01/29/2024 9 RxNorm React ion: unkno wn, unspe cifie d;; Not Available [facility] 4 01:04:12 68573 Advil medicatio n other Not available Not available 01/29/2024 09669 0 RxNorm React ion: unkno wn, unspe cifie d;; Not Available [facility] 4 01:04:15 Medications Name Sig Start Date Stop Date Status Note LastModified by Organization Details LastModified Time quetiapine 25 mg tablet TAKE 1 TABLET BY MOUTH EVERY MORNING & 2 TABLETS EVERY EVENING DIRECTED active Not Available Not Available No t Available atorvastat in 80 mg tablet active Medicatio n ID: [id number] Du ration Value: 30 Brand Name: atorvasta tin Send Method: E-Prescri bed Subs Allowed: subs OK Medica tionGener icName: atorvasta tin Not Available Not Available Not Available prednisone 10 mg tablet PLEASE SEE ATTACHED FOR DETAILED DIRECTION S active Not Available Not Available No t Available cetirizine 10 mg tablet TAKE 1 TABLET BY MOUTH DAILY NEEDED FOR ALLERGIES OR RHINITIS. active Not Available Not Available No t Available azithromyc in 250 mg tablet TOME 2 TABLETAS V A ORAL HOY, [place] TOME 1 TABLETA DIARIAMEN TE SANDEEP 4 D SEG N LAS INDICACIO LESA active Not Available Not Available No t Available ketotifen 0.025 % (0.035 %) eye drops INSTILL ONE DROP INTO BOTH EYES EVERY 8 TO 12 HOURS. active Not Available Not Available No t Available prednisone 20 mg tablet TAKE 2 TABLETS DAILY FOR 4 DAYS active Not Available Not Available No t Available isosorbide mononitrat e ER 30 mg tablet,ext ended release 24 hr TOME MEENA TABLETA TODOS LOS D active Not Available Not Available No t Available metoprolol succinate ER 100 mg tablet,ext ended release 24 hr TOME 1 TABLETA POR V A ORAL TODOS LOS D active Not Available Not Available No t Available aspirin 81 mg tablet,del ayed release TOME 1 TABLETA POR V A ORAL TODOS LOS D active Not Available Not Available No t Available spironolac tone 25 mg tablet TAKE 1/2 TABLET POR V A ORAL A DIARIO active Not Available Not Available No t Available acetaminop hen ER 650 mg tablet,ext ended release TOME 1 TABLETA POR V A ORAL DOS VECES AL D A CUANDO SEA NECESARIO PARA EL DOLOR active Not Available Not Available No t Available famotidine 20 mg tablet 20 MG ORALLY DAILY NEEDED FOR HEARTBURN /INDIGEST ION active Not Available Not Available No t Available prednisolo ne acetate 1 % eye drops,susp ension INSTILL 1 DROP INTO LEFT EYE FOUR TIMES A DAY DIRECTED FOR 1 WEEK active Not Available Not Available No t Available tamsulosin 0.4 mg capsule 2017 active Medicatio n ID: [id number] Du ration Value: 30 Brand Name: tamsulosi n Send Method: E-Prescri bed Subs Allowed: subs OK Specia l Instructi on: TAKE ONE CAPSULE AT BEDTIME M edication GenericNa me: tamsulosi n Not Available Not Available Not Available cephalexin 500 mg capsule TAKE 1 CAPSULE BY MOUTH THREE TIMES A DAY active Not Available Not Available No t Available pantoprazo le 40 mg tablet,del ayed release active Medicatio n ID: [id number] Du ration Value: 30 Brand Name: pantopraz ole Send Method: E-Prescri bed Subs Allowed: subs OK Medica tionGener icName: pantopraz ole Not Available Not Available Not Available esomeprazo le magnesium 40 mg capsule,de layed release TAKE 1 CAPSULE BY MOUTH 2 TIMES DAILY (BEFORE MEALS) active Not Available Not Available No t Available clotrimazo le-betamet hasone 1 %-0.05 % topical cream APPLY TOPICALLY TO AFFECTED AREA EVERY DAY active Not Available Not Available No t Available metoprolol tartrate 50 mg tablet active Medicatio n ID: [id number] Du ration Value: 30 Brand Name: metoprolo l tartrate Send Method: E-Prescri bed Subs Allowed: subs OK Medica tionGener icName: metoprolo l tartrate Not Available Not Available Not Available Gas Relief Extra Strength 125 mg capsule TAKE 1 CAPSULE BY MOUTH TWICE A DAY NEEDED FIR ABDOMINAL PAIN & GAS active Not Available Not Available No t Available aspirin 81 mg chewable tablet active Medicatio n ID: [id number] Du ration Value: 30 Brand Name: aspirin S end Method: E-Prescri bed Subs Allowed: subs OK Medica tionGener icName: aspirin Not Available Not Available Not Available ammonium lactate 12 % topical cream active Medicatio n ID: [id number] Du ration Value: 30 Brand Name: ammonium lactate S end Method: E-Prescri bed Subs Allowed: subs OK Medica tionGener icName: ammonium lactate Not Available Not Available Not Available furosemide 20 mg tablet TOME 1 TABLETA POR V A ORAL TODOS LOS D active Not Available Not Available No t Available levofloxac in 500 mg tablet TAKE 1 TABLET BY MOUTH DAILY active Not Available Not Available No t Available ferrous sulfate 325 mg (65 mg iron) tablet,del ayed release active Medicatio n ID: [id number] Du ration Value: 30 Brand Name: ferrous sulfate S end Method: E-Prescri bed Subs Allowed: subs OK Medica tionGener icName: ferrous sulfate Not Available Not Available Not Available ondansetro n 4 mg disintegra ting tablet TOME 1 TABLETA POR V A ORAL CADA 8 HORAS CUANDO SEA NECESARIO PARA LAS N USEAS active Not Available Not Available No t Available fluticason e propionate 50 mcg/actuat ion nasal spray,susp ension USE 1 SPRAY IN EACH NOSTRIL DOS VECES AL D A active Not Available Not Available No t Available sertraline 50 mg tablet TOME 1 TABLETA POR V A ORAL TODOS LOS D active Not Available Not Available No t Available finasterid e 5 mg tablet TAKE 1 TABLET BY MOUTH EVERY DAY active Not Available Not Available No t Available Ventolin HFA 90 mcg/actuat ion aerosol inhaler INHALE 2 PUFFS INTO THE LUNGS EVERY 4 HOURS NEEDED FOR COUGH, WHEEZING, OR SHORTNESS OF BREATH. active Not Available Not Available No t Available Stool Softener 50 mg capsule TOME MEENA C PSULA DOS VECES AL D A active Not Available Not Available No t Available ezetimibe 10 mg tablet TOME 1 TABLETA POR V A ORAL TODOS LOS D active Not Available Not Available No t Available olopatadin e 0.2 % eye drops 2017 active Medicatio n ID: [id number] Du ration Value: 30 Brand Name: olopatadi ne Send Method: E-Prescri bed Subs Allowed: subs OK Specia l Instructi on: INSTILL 1 DROP INTO BOTH EYES EVERY DAY Medic ationGene ricName: olopatadi ne Not Available Not Available Not Available Farxiga 10 mg tablet TAKE 1 TABLET BY MOUTH EVERY DAY active Not Available Not Available No t Available Entresto 49 mg-51 mg tablet active Not Available Not Available No t Available Entresto 24 mg-26 mg tablet TAKE 1 TABLET BY MOUTH TWICE A DAY active Not Available Not Available No t Available Vitals Date Recorded Body height Body mass index (BMI) Body weight Provider Name and Address Organization Details Last Updated DateTime 04/10/2024 160.02 cm 29.4 kg/m2 62598.33 g Tom Gonzalez MD - [facility] 04/10/2024 11:34:25 Social History None recorded. Functional Status None recorded. Mental Status None recorded. Family History Nothing Reported. Medical History No medical history recorded. Past Encounters Encounter ID Performer Location Encounter Start Date Encounter Closed Date Diagnosis/Indication Diagnosis SNOMED-CT Code Diagnosis ICD10 Code Diagnosis Note [id number] NADYA ALY MD [facility] [address] [address] 04/10/2024 11:28:35 04/10/2024 12:17:17 Sensorineural hearing loss of bilateral ears [id number] H90.3 Audiologic al evaluation results: Right ear: {{Normal sloping Mi ld* Modera te Moderat akin-severe Severe Pr ofound Nor mal auditory thresholds }} to {{mild mod erate mode rately-sev ere severe profound* with}} {{sensorin eural hearing loss with* cond uctive hearing loss with mixed hearing loss with}} {{excellen t good julia r* poor no t measurable }} word recognitio n. Left ear: {{Normal sloping Mi ld* Modera te Moderat akin-severe Severe Pr ofound Nor mal auditory thresholds }} to {{mild mod erate mode rately-sev ere severe * profound with}} {{sensorin eural hearing loss with* cond uctive hearing loss with mixed hearing loss with}} {{excellen t good julia r poor* no t measurable }} word recognitio n. Tympanomet ry: Right Ear:{{Type A* Type As Type Ad Type C Type C, shallow & rounded Ty pe B Type B with large volume Cou ld not maintain a hermetic seal}} Left Ear:{{Type A* Type As Type Ad Type C Type C, shallow & rounded Ty pe B Type B with large volume Cou ld not maintain a hermetic seal}} Impacted c erumen of bilateral ears [id number] H61.23 Health Concerns Section Related Observation LastModified by Organization Detai ls LastModified Time None Recorded Concern Status LastModified by Organization Details LastModified Time None Recorded Advance Directives Directive None Recorded Payers Encounter Date Sequence Insurance Name Policy Number Policy Spivey Covered Member ID Spivey Member ID Guarantor Name 04/10/2024 1 [facility] - DOS ON OR AFTER 2022 - [employer] ONE C[employer] (MEDICARE REPLACEMENT/ADV ANTAGE - PPO) Neville Messina [id number] Neville Messina Notes Date Note Type Note Provider Name and Address Organization Details Recorded Time 04/10/2024 text/html 88-year-old male presents for evaluation of the ears and hearing. Family report decreased hearing gradually over the last several years. They wonder if he has cerumen impaction. Patient denies otalgia and otorrhea. NADYA ALY MD [address] [place] [address], [place], [address], [facility] - [facility] 04/10/2024 17:03:06
--- OUTSIDE RECORDS SUMMARY | 2024-10-08 16:39 | XMS_ITS | Encounter Summary ---
Author Organization [facility] Address [address] [place] [address] Care Team Providers Care Instrument And Control Service Person Name Role Phone Janae Brown MD Primary Care Prov ider Encounter Details Date Type Department Care Team ([facility] st Contact Info) Description 09/14/2024 Telephone Gastroenterology - [place] [address] [place] [address] Amelia Stewart PA [address] [place] [address] Social History Tobacco Use Types Packs/Day Years [...] care for your loved ones. 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 * FELIPE Oliver - 09/14/2024 9:53 PM EST Please call patient on his caregiver that I did receive barium swallow that showed abnormal movement of the esophagus which we often see as patients gets older but also the barium tablet was stuck between between his esophagus and stomach questioning narrowing, so he will benefit to have an endoscopy. If patient is okay I would like to schedule endoscopy and you can send that to schedulers. TY documented in this encounter Plan of Treatment Upcoming Encounters Date Type Department Care Team (Late st Contact Info) Description 01/22/2025 9:00 AM EDT Office Visit Adult Medicine [address] [address] Janae Brown MD [address] [place] [address] documented as of this encounter Visit Diagnoses Not on filedocumented in this encounter Care Teams Instrument And Control Service Person Relationship Specialty Start Date End Date Janae Brown MD [address] [place] [id number] PCP - General Internal Medicine 09/08/24 documented as of this encounter
--- OUTSIDE RECORDS SUMMARY | 2024-10-08 16:39 | XMS_ITS | Encounter Summary ---
Author Organization [facility] Address [address] [place] [address] Care Team Providers Care Weaver Axminster Name Role Phone Janae Brown MD Primary Care Prov ider Reason for Visit * Reason Onset Date Comments pneumonia 10/08/2024 x ray 10/08/2024 Encounter Details Date Type Department Care Team (Late st Contact Info) Description 10/08/2024 Telephone Adult Medicine [address] [phone] Janae Brown MD [address] [place] [phone] pneumonia; x ray Social History Tobacco Use Types Packs/Day Years [...] care for your loved ones. 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 [...] as of this encounter Progress Notes * Angie Rdz RN - 10/08/2024 2:09 PM EST Spoke with the . The family has taken him to [facility] for eval and xray Advised no available appt in office today and to continue with the [facility] visit. To call the office if he needs follow up She stated understanding * Venus Sebastian - 10/08/2024 1:59 PM EST Patient call requires triage: Symptoms patient is presenting: Patient Vanessa is calling. [facility] because he was sick and he was given medication. States that [facility] staff came out again today and told her to call PCP office and ask about having an xray ordered to r/o pneumonia stating patient isn't doing well at all. How long has patient had these symptoms?: over a week For ALL patients calling to schedule any appointment (routine, sick visit, follow up, consult, etc.) in the outpatient setting please ask the following questions: Do you have fever of higher than 101, sore throat with difficulty swallowing or severe shortness ofbreath? no If YES to any of these above symptoms, send a message to triage and do not book. Red dot. If no, an audio or video visit should be booked. Have you had close contact with someone with Coronavirus in the last 14 days? no Have you traveled abroad? no Have you traveled recently to another state outside of [place], [place], [place], [place], [place], [place], [place]? no o If yes, did you quarantine for 14 days or have a negative covid test? no If yes to any of the above, patient is not to be scheduled in office until after 14 day quarantine or negative covid test. If pain or injury related was it due to an accident at work or from a motor vehicle accident? If yes, date of accident/Injury: No If yes, gather 3rd democrat insurance information Third Republican Information: not applicable PCP: Janae Colindres MD Payor: [employer] MEDICARE / Plan: [facility] ONE CARE / Product Type: *No Product type* / documented in this encounter Plan of Treatment Upcoming Encounters Date Type Department Care Team (Late st Contact Info) Description 01/22/2025 9:00 AM EDT Office Visit Adult Medicine [address] [place] [address] Janae Brown MD [address] [place] [phone] documented as of this encounter Visit Diagnoses Not on filedocumented in this encounter Additional Health Concerns Assessment Noted Time PHQ-9 Depression Total Score: 0 09/23/19 12:48 PM EST A fall risk assessment has been complete d for the patient 09/23/2024 12:48 PM EST documented as of this encounter Care Teams Weaver Axminster Relationship Specialty Start Date End Date Janae Brown MD [address] [place] [address] PCP - General Internal Medicine 09/08/24 documented as of this encounter
== END 2024-10-08 15:06 | disposition home or self-care (01) ==
PROVIDERS: PCP Internal Medicine; Visit Provider Physician Assistant
DX: J06.9 Acute upper respiratory infection, unspecified (principal); J45.31 Mild persistent asthma with (acute) exacerbation

== ENCOUNTER 2024-10-08 14:18 | Outpatient (REF) | payer OTHER, SELFPAY ==
--- NOTE | ~2024-10-08 | XR_ITS ---
EXAMINATION: XR CHEST CLINICAL INFORMATION: R05.9 - Cough, unspecified COMPARISON: 09/28/2023, 09/14/2023. TECHNIQUE: 2 views of the chest were obtained. FINDINGS: There is mild cardiac enlargement, similar. The seminal contours demonstrate a mildly uncoiled and calcified aorta. Mild prominence of the bronchovascular structures in the hilar regions, also similar. Lungs demonstrate hyperaeration bilaterally. There is mild bronchial thickening particularly in the lower lung distribution suggesting bronchitis. Stable scarring in the right middle lobe/lingular regions. No segmental consolidation or pleural effusion. No pneumothorax. There is no focal osseous or soft tissue abnormality. XR/XR chest 2V IMPRESSION: 1. Cardiac enlargement. 2. Findings suggestive of COPD. Stable scarring in the right middle lobe and lingular distributions. 3. Bronchial thickening most notable lower lobe distribution suggesting bronchitis. 4. No focal pneumonia identified. Electronically signed by: Yossi Mcnamara MD 10/08/2024 03:17 PM [facility]
== END 2024-10-08 14:19 | disposition home or self-care (01) ==
LOC: HO.HMGCX 14:18
PROVIDERS: PCP Internal Medicine; Visit Provider Internal Medicine
DX: J06.9 Acute upper respiratory infection, unspecified (principal); J45.31 Mild persistent asthma with (acute) exacerbation; R05.9 Cough, unspecified
CPT/HCPCS: 71046; 94640; 99202

== ENCOUNTER → 2024-10-08 14:59 | Outpatient (BNV) | payer OTHER, SELFPAY | PROVIDERS: PCP Internal Medicine; Visit Provider Radiology Diagnostic Radiology | DX: I51.7 Cardiomegaly (principal); J44.9 Chronic obstructive pulmonary disease, unspecified | CPT/HCPCS: 71046 ==

== ENCOUNTER 2025-03-02 15:18 | Outpatient (AMB) | payer OTHER, SELFPAY ==
[2025-03-02 15:22] VITALS: BP 110/72; PULSE 68; TEMP 36.7; O2SAT 95; BMI 28.1
--- NOTE | 2025-03-02 15:22 | AM.OFFWIN_ITS ---
Intake Vital Signs 03/02/25 15:22 Height 5 ft 5 in Weight 169 lb BMI 28.1 BP 110/72 Blood Pressure Location Lt brachial Position Sitting Pulse 68 Pulse Source Pulse Oximeter Temp 98.0 F Temp Source Oral Pulse Oximetry (%) 95 Oxygen Delivery Method Room Air Intake Visit Reasons: EP LT foot swelling, painful Intake Note: Pt presents to the office today for c/o left foot swelling and pain x2 days. Pt states he did hit his foot on the ramp at his house but states there was pain before he hit it. Patient Tobacco Use Status: Never used Tobacco Allergies ibuprofen [From Advil] Allergy (Unknown, Verified 03/02/25 15:24) Unknown carbamazepine [From Tegretol] Allergy (Verified 03/02/25 15:24) Unknown memantine Adverse Reaction (Verified 03/02/25 15:24) Unknown HPI HPI Comments History of Present Illness Details Cypriot speaking official court interpreter offered and declined by patient, he would like is to interpret instead. History - The patient is an 89-year-old male pre senting with left big toe pain and swelling. - The issue began yesterday with a sensa tion of pulling in the toe, followed by swelling and increased pain today. - Severe pain persisted despite the appl ication of cream, leading to crying. - States the entire foot is slightly swo llen, with erythema noted in the affected area. - No history of gout and no recent consu mption of high purine foods. - Tylenol was administered, but pain per sisted, especially upon bending the toe. - The patient is unable to walk on the a ffected foot due to pain, which is exacerbated by touch and movement. Physical Exam Physical Exam General: Cooperative, healthy appearing, comfortable, no acute distress and well developed Orientation: Patient oriented x3 Limitations: uses a cane with ambulation, beninese speaking Head: Normal to inspection Ears: Hearing grossly normal bilaterally Nose: Normal External nose present Face and sinus: Normal facial exam Mouth: normal, moist oral mucosa Eyes: Appearance normal, both eyes and all related structures Neck: Normal visual inspection and Yes full ROM Respiratory: Normal respiratory effort and able to speak in complete sentences. Skin: as below Neuro: Patient oriented x3, limping gait Extremities: edema and erythema in the left 1st MTP joint, TTP PFSH Medical History (Updated 03/02/25 @ 15:40 by Nanda Mcmullen PA-C) BPH (benign prostatic hyperplasia) GERD (gastroesophageal reflux disease) Asthma exacerbation Lumbar radiculopathy Social History Alcohol intake: never Patient Tobacco Use Status: Never used Tobacco Review of Systems Const All systems reviewed & are unremarkable except as noted in HPI and below Physical Exam Vital Signs: Last Vital Signs Temp 98.0 F 03/02/25 15:22 Pulse 68 03/02/25 15:22 BP 110/72 03/02/25 15:22 Pulse Ox 95 03/02/25 15:22 Oxygen Delivery Method Room Air 03/02/25 15:22 BMI result Body Mass Index 28.1 Assessment & Plan Assessment & Plan (1) Gout attack: Code(s): M10.9 - Gout, unspecified Qualifiers: Gout site: toe Encounter type: initial encounter Laterality: left Plan: 1. Gout - Initiate a five-day course of prednisone 40 mg daily, starting the following morning to avoid sleep disturbances. - Recommend taking ibuprofen or naproxen for pain relief until prednisone is started tomorrow AM as it is late today. - Advise dietary modifications to reduce intake of high purine foods, such as shellfish, meats, and high sugar foods and drinks. - If symptoms persist or recur, follow up with a primary care physician for potential long-term management options. Medications: New prednisone 40 mg (2 x 20 mg) PO QAM 10 tabs 0RF Coding Level of Care Code Est Pt Level 3 (78175) Diagnoses Gout attack M10.9 Gout site: toe Encounter type: initial encounter Laterality: left
--- OUTSIDE RECORDS SUMMARY | 2025-03-02 17:11 | XMS_ITS | Data Portability ---
Author Organization [employer] [facility] [place] [employer] [facility] Address [address] [place] [address] Care Team Providers Care Can Reforming Machine Operator Name Role Phone HIM CCA OTHER Assessment Encounter Date Assessment Date Assessment LastModified by Organization Details LastModified Time 10/02/2024 10/02/2024 As noted, we were called to see this patient regarding concerns of cough. Evaluation in the field was performed by my sheet metal engineer colleague, as noted above, I provided real-time [...] particularly chest pain, shortness of breath, fever. [email or web address] Not available 10/02/2024 11:45:44 10/08/2024 10/08/2024 Impression: 89yo/m with multiple chronic medical problems as above including dementia, CHF, HTN, stroke, asthma, referred for evaluation for continued cough and dyspnea on exertion. Patient had been seen by Trey approximately 6 days ago, diagnosed with pneumonia, [...] of any new or worsening serious symptoms Not available 10/08/2024 13:53:55 Plan of Treatment Reminders Order Date Submit Date Provider Last Modified By Organization Details Last Modified Time Details Appointments None recorded. Lab rapid SARS CoV 2 Ag, QL IA, respiratory specimen 2024 025 [email or web address] - [facility], [address] [place] [address], [id number] 13:44:54 rapid flu (A+B) 2024 025 [email or web address] [facility] [address] [place] [address], [phone] 5 13:44:53 rapid SARS CoV 2 Ag, QL IA, respiratory specimen 2024 025 [email or web address] [facility], [address] [place] [address], [id number] 5 11:39:50 rapid flu (A+B) 2024 025 [email or web address] [facility], [address] [place] [address], [phone] 5 11:39:51 Referral None recorded. Procedures None recorded. Surgeries None recorded. Imaging None recorded. Medication Orders amoxicillin 875 mg-potassiu m clavulanate 125 mg tablet 2024 025 [facility][id number], [address] [place] [address], [address], 5 13:47:10 doxycycline monohydrate 100 mg capsule 2024 025 [id number] [address] [place] [address], [place], [address], 5 13:47:40 azithromyci n 250 mg tablet 2024 025 [email or web address] Not available 11:39:50 azithromyci n 250 mg tablet 2024 025 [id number] [address] [place] [address], [address], 5 11:39:52 Patient TargetsNo targets recorded. Patient InstructionsNo [...] Name and Address Organization Details Recorded Time 04742 Advil medicatio n Not available Not available Not available 10/02/2024 52409 0 RxNorm Not Available [facility] - [facility] 5 10:37:18 76227 Aricept medicatio n Not available Not available Not available 10/02/2024 24686 6 RxNorm Not Available [facility] - [facility] 5 10:37:18 13948 Namenda medicatio n Not available Not available Not available 10/02/2024 81468 6 RxNorm Not Available [facility] - [facility] 5 10:37:18 14867 Tegretol medicatio n Not available Not available Not available 10/02/202420292 9 RxNorm Valente Sanders MD [address] [facility],[address], [place], [phone], [employer] [facility] 5 11:34:44 Medications Name Sig Start Date Stop Date Status Note LastModified by Organization Details LastModified Time quetiapine 25 mg tablet TAKE 1 TABLET BY MOUTH AT BEDTIME NEEDED (INSOMNIA). active Not Available Not Available Not Available albuterol sulfate 2.5 mg/3 mL (0.083 %) solution for nebulization INHALE 1 VIAL VIA NEBULIZER 4 TIMES A DAY IF NEEDED FOR WHEEZING/SH ORTNESS OF BREATH active Not Available Not Available No t Available ammonium lactate 12 % lotion APPLY TO SOLES OF FEET EVERY NIGHT WEAR SOCKS TO BED active Not Available Not Available No t Available cetirizine 10 mg tablet TAKE 1 TABLET BY MOUTH DAILY NEEDED FOR ALLERGIES OR RHINITIS. active Not Available Not Available No t Available azithromycin 250 mg tablet TAKE 1 TABLET (250 MG) BY ORAL ROUTE ONCE DAILY FOR 4 DAYS. START RX 10/03/24 active Not Available Not Available N ot Available isosorbide mononitrate ER 30 mg tablet,exten ded [...] t Available doxycycline monohydrate 100 mg capsule TAKE 1 CAPSULE BY MOUTH TWICE A DAY FOR 5 DAYS active Not Available Not Available No t Available pantoprazole 40 mg tablet,delay ed release TOME [...] TABLETA POR VIA ORAL TODOS [place] BROWN active Not Available Not Available No t Available finasteride 5 mg tablet TAKE 1 TABLET BY MOUTH EVERY DAY active Not Available Not Available No t Available amoxicillin 875 mg-potassium clavulanate 125 mg tablet TOME 1 TABLETA POR V A ORAL CADA 12 HORAS active Not Available Not Available No t Available Stool Softener 50 mg capsule TOME MEENA C PSULA DOS VECES AL D A active Not Available Not Available No t Available ezetimibe 10 mg tablet TOME 1 TABLETA POR V A ORAL TODOS LOS D active Not Available Not Available No t Available Symbicort 80 mcg-4.5 mcg/actuatio n HFA aerosol inhaler INHALE 2 PUFFS INTO LUNGS 2 TIMES A DAY. RINSE MOUTH WITH WATER AFTER USE. DO NOT SWALLOW. active Not Available Not Available No t [...] [degF] 122 mm[Hg] 60 mm[Hg] Not Available [facility] 5 11:29:10 Date Recorded Body temperature Body weight Respiratory rate Heart rate Body height Oxygen saturation Oxygen saturation in Arterial blood by Pulse oximetry Systolic blood pressure Diastolic blood pressure Provider Name and Address Organization Details Last Updated DateTime 5 98.4 [degF] 93005.0 48 g 18 /min 58 /min 157.48 cm 98 % 98 % 140 mm[Hg] 64 mm[Hg] Not Available [facility] 5 13:23:20 Social History None recorded. Functional Status None recorded. Mental Status None recorded. Family History Nothing Reported. Medical History No medical history recorded. Past Encounters Encounter ID Performer Location Encounter Start Date Encounter Closed Date Diagnosis/Indication Diagnosis SNOMED-CT Code Diagnosis ICD10 Code Diagnosis Note [id number] Valente Sanders MD Main - [facility] [address] [place] [phone] 10/02/2024 11:29:08 10/02/2024 20:14:34 Pneumonia 137960933 J18.9 [id number] Yossi Morrow MD Main - [address] [phone] 10/08/2024 13:23:18 10/08/2024 19:06:22 Pneumonia 201049701 J18.9 Health Concerns Section Related Observation LastModified by Organization Detai ls LastModified Time None Recorded Concern Status LastModified by Organization Details LastModified Time None Recorded Advance Directives Directive None Recorded Payers Insurance Date Sequence Insurance Name Policy Number Policy Spivey Covered Member ID Spivey Member ID Guarantor Name 10/08/2024 1 [facility] - DOS ON OR AFTER 2022 - DUAL ELIGIBLE - LONG TERM OPTIONS AND ONE CARE (MEDICARE REPLACEMENT/ADV ANTAGE - HMO) Neville Messina [id number] Neville Messina Notes Date Note Type Note [...] Reviewed at 10/02/2024:37 Comments: HPI reviewed- NE Front Desk Worker Organization Information for Federico Byrnes Dariusz Radharuba Legal Name: [employer] Address: [address] [place] [address], Transmission Calibration Engineer: Evert TOVAR No.: [id number] Front Desk Worker POC Test Results from Federico Byrnes - ALEXANDRO Rapid influenza antigen (11:25:24) Flu: - Rapid COVID antigen (11:25:27) COVID: - ...................... ...................... ...................... ...................... ...................... ...................... ......... Front Desk Worker Note From Federico Byrnes: Dispatched to the [...] ...................... ...................... ...................... ...................... ...................... ...................... ......... [facility] Consulted: Valente Sanders ...................... ...................... ...................... ...................... ...................... ...................... ......... Disposition: Fulfilled Valente Sanders MD [address] [place] [address],[address], [place], [address], [employer] [facility] 10/02/2024 12:24:44 10/08/2024 text/html HPI: Alonso's , Vanessa, calling in to the CRU, [...] CRC Nurse Triage Notes (Aimee Romano - RN): Chief Complaints: Breathing problems, Cough PMH: Congestive Heart Failure, Gastroesophageal Reflux Disease (GERD), Hypertension, Stroke PMH Reviewed at 10/08/202458 Allergies Reviewed at 10/08/2024:58 Comments: HPI reviewed Front Desk Worker Organization Information for Oscar Hirsch Business Legal Name: [employer].? Address: [address] [place] [address], Transmission Calibration Engineer: Evert Miller MD CLIA No.: [id number] Front Desk Worker POC Test Results from Oscar Hirsch Rapid influenza antigen (13:18:33) Flu: - Rapid COVID antigen (13:18:33) COVID: - ...................... ...................... ...................... ...................... ...................... ...................... ......... Front Desk Worker Note From Oscar Hirsch: [facility] visit for male pt. Pt presents with family at home for pneumonia concerns. Pt Scottish speaking only so site foreman was used. Onset about 10 days ago. Pt seen by trey last week and started on 5 day [...] taking cough syrup as well. Consulted with [facility] Dr. Morrow who prescribed additional course of antibiotics and recommended follow up with PCP for chest x ray. Pt and family informed they can use inhaler q 4 hours. Reviewed red flags for ED. Pt education provided. ...................... ...................... ...................... ...................... ...................... ...................... ......... [facility] Consulted: Yossi Morrow ...................... ...................... ...................... ...................... ...................... ...................... ......... Disposition: Fulfilled Yossi Morrow MD [address] [facility],[address], [place], [address], [facility] T[facility]Y, OANH 10/08/2024 15:03:45
== END 2025-03-02 15:49 | disposition home or self-care (01) ==
PROVIDERS: PCP Internal Medicine; Visit Provider Physician Assistant
DX: M10.9 Gout, unspecified (principal)

== ENCOUNTER → 2025-03-02 15:18 | Outpatient (BNVA) | payer OTHER, SELFPAY | PROVIDERS: PCP Internal Medicine; Visit Provider Physician Assistant | DX: M10.9 Gout, unspecified (principal) | CPT/HCPCS: 99212 ==